=== PATIENT | male | born 1950 | race Two or more races ===

== ENCOUNTER 2018-08-07 21:06 | Inpatient (IN) | payer MEDICARE ==
[~2018-08-07] VITALS: Ht 172.7 cm; Wt 55.0 kg
--- NOTE | 2018-08-07 21:46 | Emergency Room Report ---
History of Present Illness General Chief Complaint: General Complaint Source: Family Member, EMS, PMD Present Illness HPI H presents after having multiple antibiotics for infection in the right hip. Apparently he has cancer in that area. He's had weakness and not been eating well. Has dementia and therefore it's difficult to get history from him. Family member states that his private doctor wanted him to be admitted for blood work and probable and IV antibiotics. Patient with lung cancer with brain metastases. Unable to answer questions. Allergies: Coded Allergies: No Known Allergies (Unverified , 08/07/18) Patient History Limited by: medical condition Past Medical History: see triage record Social History: Denies: smoking - former Social History Narrative daughter involved in care Reviewed Nursing Documentation: PMH: Agreed; PSxH: Agreed Nursing Documentation-PMH Hx Cancer: Yes - brain, lung, muscle Review of Systems All Other Systems: limited Physical Exam Vital Signs Date Time Temp Pulse Resp B/P (MAP) Pulse Ox O2 Delivery O2 Flow Rate FiO2 08/07/18 21:33 97.5 117 18 144/88 98 Room Air Sp02 EP Interpretation: reviewed, normal General Appearance: no apparent distress, Chronically Ill Head: normocephalic, atraumatic Eyes: bilateral eye PERRL, bilateral eye scleral icterus ENT: dry mucus membranes Neck: supple Respiratory: no rhonchi, decreased breath sounds Cardiovascular #1: tachycardia Cardiovascular #2: 2+ radial (L) Gastrointestinal: abnormal bowel sounds, scaphoid Genitourinary: no CVA tenderness Musculoskeletal: back normal, other - atrophy Neurologic: alert, other - disoriented, moving all 4 Psychiatric: anxious Skin: other - stage 4 R hip decubitus Medical Decision Making Diagnostic Impression: Primary Impression: Osteomyelitis of right hip Additional Impressions: Lung cancer metastatic to brain Malnutrition Qualified Codes: E43 - Unspecified severe protein-calorie malnutrition ER Course Patient presents with weakness and outpatient antibiotic treatment failure for an infected right hip. Differential includes osteomyelitis, electrolyte imbalance, acute myocardial infarction, sepsis amongst others. He be evaluated with EKG, chest x-ray, x-ray of the hips. Blood cultures will be obtained and lactic acid. Discussion with Dr. Parada led to antibiotic choice. EKG ST with PACs. CXR with effusion, mass left. Labs with leukocytosis. ESR elevated. C reactive protein elevated. Dr. Benyamini debrided the wound in the ED. Patient treated for pain. Improved with treatment but needing antibiotics for probable osteomyelitis. Admit telemetry. Dr. Parada discussed admission with Dr. Smyth. Laboratory Tests Test 08/07/18 21:40 08/07/18 22:30 White Blood Count 14.5 K/UL (4.8-10.8) H Red Blood Count 3.85 M/UL (4.70-6.10) L Hemoglobin 9.9 G/DL (14.2-18.0) L Hematocrit 31.5 % (42.0-52.0) L Mean Corpuscular Volume 82 FL (80-99) Mean Corpuscular Hemoglobin 25.8 PG (27.0-31.0) L Mean Corpuscular Hemoglobin Concent 31.6 G/DL (32.0-36.0) L Red Cell Distribution Width 15.8 % (11.6-14.8) H Platelet Count 808 K/UL (150-450) H Mean Platelet Volume 4.0 FL (6.5-10.1) L Neutrophils (%) (Auto) % (45.0-75.0) Lymphocytes (%) (Auto) % (20.0-45.0) Monocytes (%) (Auto) % (1.0-10.0) Eosinophils (%) (Auto) % (0.0-3.0) Basophils (%) (Auto) % (0.0-2.0) Differential Total Cells Counted 100 Neutrophils % (Manual) 77 % (45-75) H Lymphocytes % (Manual) 17 % (20-45) L Monocytes % (Manual) 3 % (1-10) Eosinophils % (Manual) 0 % (0-3) Basophils % (Manual) 0 % (0-2) Band Neutrophils 3 % (0-8) Platelet Estimate Increased H Platelet Morphology Normal Red Blood Cell Morphology Normal Erythrocyte Sedimentation Rate 109 MM/HR (0-20) H Prothrombin Time 12.9 SEC (9.30-11.50) H Prothrombin Time INR 1.2 (0.9-1.1) H PTT 34 SEC (23-33) H Sodium Level 133 MMOL/L (136-145) L Potassium Level 4.1 MMOL/L (3.5-5.1) Chloride Level 97 MMOL/L (98-107) L Carbon Dioxide Level 28 MMOL/L (21-32) Anion Gap 8 mmol/L (5-15) Blood Urea Nitrogen 16 mg/dL (7-18) Creatinine 0.5 MG/DL (0.55-1.30) L Estimate Glomerular Filtration Rate > 60 mL/min (>60) Glucose Level 114 MG/DL (74-106) H Lactic Acid Level 1.30 mmol/L (0.4-2.0) Calcium Level 9.6 MG/DL (8.5-10.1) Magnesium Level 1.6 MG/DL (1.8-2.4) L Total Bilirubin 0.2 MG/DL (0.2-1.0) Aspartate Amino Transferase (AST) 39 U/L (15-37) H Alanine Aminotransferase (ALT) 89 U/L (12-78) H Alkaline Phosphatase 92 U/L (46-116) Total Creatine Kinase 23 U/L (26-308) L Troponin I 0.000 ng/mL (0.000-0.056) C-Reactive Protein, Quantitative 18.4 mg/dL (0.00-0.90) H Pro-B-Type Natriuretic Peptide 346 pg/mL (0-125) H Total Protein 9.1 G/DL (6.4-8.2) H Albumin 2.4 G/DL (3.4-5.0) L Globulin 6.7 g/dL Albumin/Globulin Ratio 0.4 (1.0-2.7) L Ammonia 12 umol/L (11-32) EKG Diagnostic Results Rate: tachycardiac ST Segments: no acute changes Rhythm Strip Diag. Results EP Interpretation: yes Rhythm: no PVC's, other - ST with PACs Chest X-Ray Diagnostic Results Chest X-Ray Diagnostic Results : Chest X-Ray Ordered: Yes # of Views/Limited/Complete: 1 View Indication: Other Interpretation: no pneumothorax, other - effusion, mass L Impression: Other Electronically Signed by: Electronically signed by Theo Quick MD Last Vital Signs Date Time Temp Pulse Resp B/P (MAP) Pulse Ox O2 Delivery O2 Flow Rate FiO2 08/08/18 01:44 Room Air 08/07/18 23:36 97.5 08/07/18 22:15 98 16 131/62 98 Status: improved Disposition: ADMITTED INPATIENT Condition: Serious Theo Quick MD Aug 07, 2018 21:46
[2018-08-07] MEDS ORDERED: HYDROCODON-ACE1 EA13 ORAL (22:03)
[2018-08-07] MEDS ORDERED: MIRTAZAPINE30 MG ORAL (22:03)
[2018-08-07] MEDS ORDERED: BRAIN MIGHT-DH1 EACH PO (22:03)
[2018-08-07] MEDS ORDERED: FENTANYL1 EAC3 TDERMAL (22:03)
[2018-08-07] MEDS ORDERED: ASPIR 8181 MG ORAL (22:03)
[2018-08-07] MEDS ORDERED: CENTRUM SILVER1 EAC2 PO (22:03)
[2018-08-07] MEDS ORDERED: ZINC SULFATE220 M1 ORAL (22:03)
[2018-08-07] MEDS ORDERED: CALCIUM 250+D1 EACH PO (22:03)
[2018-08-07] MEDS ORDERED: MIRALAX17 G2 ORAL (22:03)
[2018-08-07] MEDS ORDERED: BACTRIM DS TAB1 EAC1 ORAL (22:03)
[2018-08-07] MEDS ORDERED: SENOKOT8.6 MG PO (22:03)
[2018-08-07] MEDS ORDERED: VITAMIN D250000 UNI1 ORAL (22:03)
--- NOTE | 2018-08-07 22:07 | Diagnostic Imaging Report ---
EXAM: XR Chest, 1 View CLINICAL HISTORY: ALOC TECHNIQUE: Frontal view of the chest. COMPARISON: No relevant prior studies available. FINDINGS: Lungs: Small amount of linear opacities over left middle and lower lung zone, likely represent scarring related to partial pneumonectomy. Left pneumothorax appears contracted. Partial left pneumonectomy sutures in the region of medial lung zone. Pleural space: Cannot rule out small left pleural effusion. Heart: Unremarkable. No cardiomegaly. Mediastinum: Suspect hiatal hernia. Bones/joints: Old right rib fractures. Osteopenia. Vasculature: Minimally calcified aorta. IMPRESSION: Right lung is clear. Difficult to rule out left middle and lower lung zone airspace disease versus post partial left pneumonectomy changes. Suspect small left pleural effusion/thickening. Questionable hiatal hernia.
[2018-08-07 22:15] VITALS: BP 131/62
[2018-08-07] MEDS ORDERED: Piperacillin/Tazobactam 3.375 GM in NS 110 ML IVPB ONE (22:15)
[2018-08-07] MEDS ORDERED: Vancomycin 1 GM in D5W 275 ML IVPB ONE (22:15)
[2018-08-07 22:19] LABS: HEMATOCRIT 31.5 % (42.0-52.0); HEMOGLOBIN 9.9 G/DL (14.2-18.0); MEAN CORPUSCULAR VOLUME 82 FL (80-99); PLATELET COUNT 808 K/UL (150-450); RED BLOOD COUNT 3.85 M/UL (4.70-6.10); RED CELL DISTRIBUTION WIDTH 15.8 % (11.6-14.8); WHITE BLOOD COUNT 14.5 K/UL (4.8-10.8)
[2018-08-07 22:28] LABS: INR 1.2 (0.9-1.1)
[2018-08-07 22:37] LABS: ANION GAP 8 mmol/L (5-15); BLOOD UREA NITROGEN 16 mg/dL (7-18); CALCIUM 9.6 MG/DL (8.5-10.1); CARBON DIOXIDE 28 MMOL/L (21-32); CHLORIDE 97 MMOL/L (98-107); CREATININE 0.5 MG/DL (0.55-1.30); POTASSIUM 4.1 MMOL/L (3.5-5.1); SODIUM 133 MMOL/L (136-145)
--- NOTE | 2018-08-07 22:44 | Consultation ---
History of Present Illness General Date patient seen: Aug 07, 2018 Chief Complaint: General Complaint Reason for Consultation: left hip wound Present Illness HPI 68 year old male with complex medical history presented with generalized malaise , fatigue, and worsening left hip wound with what was thought to be abscess. Patient with history of metastatic lung cancer s/p chemo and radiation. Last radiation was months ago and last chemotherapy was few weeks ago. Per the patients , first diagnosed with lung cancer after surgical biopsy performed for mass. Was then found to have mets to brain and potentially bone. Currently lives at home with and has home health care. Has multidisciplinary outpatient care team. Began to develop left hip wound 1 month ago and worsened last week. Was placed on oral Abx by PCP without improvement. Drainage worsening and condition poor therefore came to ED for evaluation. Was believed to have possible left hip abscess that failed outpatient medical therapy. Surgery called to evaluate. Patient seen, chart reviewed, patient examined. to help with history. States otherwise well without history of HTN, DM, renal or heart disease. Believes left hip wound to have began 1 month ago after pain medication injection to the same area while at [facility]. She was told at that time it is likely a decubitus ulcer. Hx of resolving sacral decubitus ulcer. States he now likes to lay on his left side in one specific position. no n/v/f/c. appetite poor. Allergies: Coded Allergies: No Known Allergies (Unverified , 08/07/18) Medication History Scheduled Aspirin* (Aspir 81*), 81 MG ORAL DAILY, (Reported) Ergocalciferol (Vitamin D2)* (Vitamin D*), 50,000 UNIT ORAL ONCE A WEEK, ( Reported) Fentanyl 100MCG Patch* (Fentanyl 100MCG Patch*), 1 PATCH TDERMAL EVERY 72 HOURS, (Reported) Hydrocodone Bit/Acetaminophen 10-325* (Hydrocodon-Acetaminophn 10-325*), 1 TAB ORAL Q4H, (Reported) Mirtazapine* (Remeron*), 30 MG ORAL BEDTIME, (Reported) Polyethylene Glycol 3350* (Miralax*), 17 GM ORAL DAILY, (Reported) Trimethoprim/Sulfamethoxazole 160/800* (Bactrim Ds Tablet*), 1 TAB ORAL TWICE A DAY, (Reported) Zinc Sulfate (Zinc Sulfate*), 220 MG ORAL DAILY, (Reported) Miscellaneous Medications Calcium Carbonate/Vitamin D3 (Calcium 250+D Tablet), 1 EACH PO, (Reported) Multivitamin W-Minerals/Lutein (Centrum Silver Ultra Men's Tab), 1 EACH PO, ( Reported) Sennosides (Senokot), 8.6 MG PO, (Reported) Vit B Cmplx & C#11/Ca/Dha/Q10 (Brain Xgvje-Vgx-Jh Q10 Tablet), 1 EACH PO, ( Reported) Patient History History Provided By: Patient, Family Member, Medical Record, Caregiver, PMD Healthcare decision maker Resuscitation status Advanced Directive on File Past Medical/Surgical History Past Medical/Surgical History: (1) Dehydration (2) Malnutrition (3) Stage 1 skin ulcer of sacral region (4) Decubitus ulcer of left hip, stage 4 (5) Lung cancer metastatic to brain (6) Sepsis Review of Systems All Other Systems: negative except mentioned in HPI Physical Exam General Appearance: no apparent distress, alert Lines, tubes and drains: peripheral HEENT: mucous membranes moist Neck: normal inspection Respiratory/Chest: normal breath sounds, no respiratory distress, no accessory muscle use Cardiovascular/Chest: tachycardia Abdomen: normal bowel sounds, non tender, soft, no organomegaly, no mass Extremities: no calf tenderness, normal capillary refill, no edema, no cyanosis , other Skin Exam: other - stage 4 left hip decubitus ulcer / stage 1 sacral decubitus Neurologic: alert, responsive Last 24 Hour Vital Signs Date Time Temp Pulse Resp B/P (MAP) Pulse Ox O2 Delivery O2 Flow Rate FiO2 08/07/18 21:33 97.5 117 18 144/88 98 Room Air Laboratory Tests Test 08/07/18 21:40 White Blood Count 14.5 K/UL (4.8-10.8) H Red Blood Count 3.85 M/UL (4.70-6.10) L Hemoglobin 9.9 G/DL (14.2-18.0) L Hematocrit 31.5 % (42.0-52.0) L Mean Corpuscular Volume 82 FL (80-99) Mean Corpuscular Hemoglobin 25.8 PG (27.0-31.0) L Mean Corpuscular Hemoglobin Concent 31.6 G/DL (32.0-36.0) L Red Cell Distribution Width 15.8 % (11.6-14.8) H Platelet Count 808 K/UL (150-450) H Mean Platelet Volume 4.0 FL (6.5-10.1) L Neutrophils (%) (Auto) % (45.0-75.0) Lymphocytes (%) (Auto) % (20.0-45.0) Monocytes (%) (Auto) % (1.0-10.0) Eosinophils (%) (Auto) % (0.0-3.0) Basophils (%) (Auto) % (0.0-2.0) Neutrophils % (Manual) Pending Lymphocytes % (Manual) Pending Platelet Estimate Pending Platelet Morphology Pending Prothrombin Time 12.9 SEC (9.30-11.50) H Prothromb Time International Ratio 1.2 (0.9-1.1) H Activated Partial Thromboplast Time 34 SEC (23-33) H Sodium Level Pending Potassium Level Pending Chloride Level Pending Carbon Dioxide Level Pending Blood Urea Nitrogen Pending Creatinine Pending Estimat Glomerular Filtration Rate Pending Glucose Level Pending Lactic Acid Level Pending Calcium Level Pending Magnesium Level Pending Total Bilirubin Pending Aspartate Amino Transf (AST/SGOT) Pending Alanine Aminotransferase (ALT/SGPT) Pending Alkaline Phosphatase Pending Total Creatine Kinase Pending Troponin I Pending Pro-B-Type Natriuretic Peptide Pending Total Protein Pending Albumin Pending Globulin Pending Height (Feet): 5 Height (Inches): 8.00 Weight (Pounds): 140 Medications Current Medications Medications (Trade) Dose Ordered Sig/Efraín Route PRN Reason Start Time Stop Time Status Last Admin Dose Admin Piperacillin Sod/ Tazobactam Sod 3.375 gm/Sodium Chloride 110 ml @ 220 mls/hr ONCE ONCE IVPB 08/07/18 22:15 08/07/18 22:44 Sodium Chloride 1,000 ml @ 300 mls/hr Q3H20M IV 08/07/18 21:45 09/06/18 21:44 Sodium Chloride 1,000 ml @ 999 mls/hr Q1H1M ONCE IV 08/07/18 21:45 08/07/18 22:45 Vancomycin HCl 1 gm/Dextrose 275 ml @ 183.708 mls/hr ONCE ONCE IVPB 08/07/18 22:15 08/07/18 23:44 Assessment/Plan Problem List: (1) Dehydration Assessment & Plan: poor intake recently fatigue -IV fluids -bolus IVF monitor urine output ICD Codes: E86.0 - Dehydration SNOMED: 43468501 (2) Malnutrition Assessment & Plan: Mets lung cancer s/p chemo / radiation overall poor prognosis poor appetite -diet as tolerated -IV F -nutrition consult -trend labs ICD Codes: E46 - Unspecified protein-calorie malnutrition SNOMED: 86774877 Qualifiers: (3) Decubitus ulcer of left hip, stage 4 Assessment & Plan: stage 4 left hp decubitus ulcer on presentation foul odor, purulent drainage around unstable eschar cap. can be noted to be stage from around eschar cap 5cm x 5cm x 1cm deep with 3mm tunneling anterior superior aspect debridement performed at bedside and wound cleaned see note -diet as tolerated -dressing change to wound BID -turn q2h -air mattress -heel protectors thank you ICD Codes: L89.224 - Pressure ulcer of left hip, stage 4 SNOMED: 726370491, 685066765 (4) Sepsis Assessment & Plan: leukocytosis tachycardic low urine output -see above plans -ivABX ICD Codes: A41.9 - Sepsis, unspecified organism SNOMED: 81753397 Alli Parada Aug 07, 2018 22:44
[2018-08-07] MEDS ORDERED: LORazepam Inj 2mg/ml 1ml IV PRN (22:45)
[2018-08-07] MEDS ORDERED: Morphine Sulfate 4mg/ml Inj (IV/IM USE ONLY) IVP PRN (22:45)
[2018-08-07] MEDS ORDERED: Nitroglycerin Subl 0.4mg tab SL PRN (22:45)
[2018-08-07] MEDS ORDERED: Morphine Sulfate 2mg/ml Inj IVP PRN ×2 (22:45)
[2018-08-07] MEDS ORDERED: Mylanta II UD 30ml ORAL PRN (22:45)
[2018-08-07] MEDS ORDERED: Milk of Magnesia 30ml Ud ORAL PRN (22:45)
[2018-08-07 22:48] LABS: ALANINE AMINOTRANSFERASE 89 U/L (12-78); ALBUMIN 2.4 G/DL (3.4-5.0); ALBUMIN/GLOBULIN RATIO 0.4 (1.0-2.7); ALKALINE PHOSPHATASE 92 U/L (46-116); ASPARTATE AMINO TRANSFERASE 39 U/L (15-37); BILIRUBIN,TOTAL 0.2 MG/DL (0.2-1.0); CREATINE KINASE 23 U/L (26-308)
[2018-08-07] MEDS ORDERED: Morphine Sulfate 4mg/ml Inj (IV/IM USE ONLY) IVP ONE (23:00)
[2018-08-08 00:20] VITALS: BP 127/90
[2018-08-08] MEDS ORDERED: SENOKOT8.6 MG PO (01:38)
[2018-08-08] MEDS ORDERED: CALCIUM 500 +1 EAC3 PO (01:38)
[2018-08-08] MEDS: D5 1/2NS w/KCl 20mEq 1,000 ML IV SCH ×2 (02:07→08:43)
[2018-08-08] MEDS: Docusate 100mg cap ORAL SCH ×3 (02:07→18:24)
[2018-08-08] MEDS: Heparin 5000 units/ml inj SUBQ SCH ×3 (02:08→20:58)
[2018-08-08 04:00] VITALS: BP 144/82
[2018-08-08] MEDS: Piperacillin/Tazobactam 3.375 GM in NS 110 ML IVPB SCH ×3 (05:53→21:24)
[2018-08-08 07:15] LABS: INR 1.3 (0.9-1.1)
[2018-08-08 07:17] LABS: BASOPHILS % (AUTO) 0.8 % (0.0-2.0); EOSINOPHILS % (AUTO) 1.3 % (0.0-3.0); HEMATOCRIT 29.9 % (42.0-52.0); HEMOGLOBIN 9.3 G/DL (14.2-18.0); LYMPHOCYTES % (AUTO) 10.6 % (20.0-45.0); MEAN CORPUSCULAR VOLUME 80 FL (80-99); MONOCYTES % (AUTO) 5.9 % (1.0-10.0); NEUTROPHILS % (AUTO) 81.4 % (45.0-75.0); PLATELET COUNT 784 K/UL (150-450); RED BLOOD COUNT 3.72 M/UL (4.70-6.10); RED CELL DISTRIBUTION WIDTH 16.1 % (11.6-14.8); WHITE BLOOD COUNT 13.1 K/UL (4.8-10.8)
[2018-08-08 07:36] LABS: ALANINE AMINOTRANSFERASE 78 U/L (12-78); ALBUMIN 2.3 G/DL (3.4-5.0); ALBUMIN/GLOBULIN RATIO 0.4 (1.0-2.7); ALKALINE PHOSPHATASE 83 U/L (46-116); ANION GAP 9 mmol/L (5-15); ASPARTATE AMINO TRANSFERASE 30 U/L (15-37); BILIRUBIN,TOTAL 0.3 MG/DL (0.2-1.0); BLOOD UREA NITROGEN 10 mg/dL (7-18); CARBON DIOXIDE 25 MMOL/L (21-32); CHLORIDE 99 MMOL/L (98-107); CHOLESTEROL 178 MG/DL (< 200); CREATININE 0.4 MG/DL (0.55-1.30); HDL CHOLESTEROL 41 MG/DL (40-60); POTASSIUM 3.8 MMOL/L (3.5-5.1); SODIUM 132 MMOL/L (136-145); TRIGLYCERIDES 96 MG/DL (30-150)
[2018-08-08 08:00] VITALS: BP 140/78
[2018-08-08] MEDS ORDERED: NS 275ml ONE (10:22)
[2018-08-08] MEDS ORDERED: Tubing IV Secondary IV ONE (10:22)
[2018-08-08] MEDS ORDERED: Magnesium Chloride w/Calcium Tab ORAL SCH (11:00)
[2018-08-08 12:00] VITALS: BP 140/79
--- NOTE | 2018-08-08 13:09 | History & Physical ---
History and Physical History & Physicial H presents after having multiple antibiotics for infection in the right hip. Apparently he has cancer in that area. He's had weakness and not been eating well. Has dementia and therefore it's difficult to get history from him. Family member states that his private doctor wanted him to be admitted for blood work and probable and IV antibiotics. Patient with lung cancer with brain metastases. Unable to answer questions. Allergies: Coded Allergies: No Known Allergies (Unverified , 08/07/18) Hx Cancer: Yes - brain, lung, muscle (1) Dehydration (2) Malnutrition (3) Stage 1 skin ulcer of sacral region (4) Decubitus ulcer of left hip, stage 4 (5) Lung cancer metastatic to brain (6) Sepsis Hydrate antibiotics surgical eval # [id number] Hema Smyth MD Aug 08, 2018 13:09
[2018-08-08] MEDS: D5NS 1,000 ML IV SCH (14:30)
[2018-08-08 16:00] VITALS: BP 118/79
--- NOTE | 2018-08-08 16:00 | History and Physical Report ---
DATE OF ADMISSION: 08/07/2018 HISTORY OF PRESENT ILLNESS: The patient is a 68-year-old, unfortunate male, who presents with generalized malaise, fatigue, and worsening of the left hip wound, which was thought to be an abscess. The patient has history of metastatic lung cancer with previous chemotherapy and radiation. Last radiation was month ago and last chemotherapy few weeks ago. According to the patient's , the patient first diagnosed with lung cancer after surgical biopsy was performed and then found to have metastasis to the brain and bone. Currently, the patient is living at home with the . The patient began to develop left hip wound a month ago, which worsened for the last week and oral antibiotic was of no improvement and drainage worsened. Past history of the patient is otherwise insignificant for any diabetes, hypertension, or heart disease. The main problem at this point is weakness, fatigue, poor p.o. intake, and worsening of the left hip wound. MEDICATIONS: The patient takes includes aspirin, fentanyl, [place], Bactrim, and zinc. PHYSICAL EXAMINATION: GENERAL: On examination today, the patient is weak. VITAL SIGNS: Tachycardic with a rate of 112, afebrile, respiratory rate 20, and blood pressure 140/79. Face is pale. Not in any distress. Emaciated. HEENT: Head is normocephalic. NECK: Not rigid. HEART: Tachycardic. LUNGS: Decreased breath sounds over the bases. ABDOMEN: Slightly distended, soft. EXTREMITIES: Lower extremities, no edema. SKIN: Stage IV left hip decubitus and stage I sacral decubitus. LABORATORY RESULTS: White blood cell count 14.5 and hemoglobin 9.9. Chemistries show sodium low 133, glucose 114, medium low, albumin 2.4. No urine is available. IMPRESSION: 1. Decubitus of the ulcer of the left hip stage IV. The hip one appears to be infected. 2. Stage I sacral region decubitus. 3. Dehydration. 4. Malnutrition. 5. Lung cancer metastatic with brain and bone and sepsis. PLAN: IV hydration. Correct electrolytes. Antibiotics and wound care. According to how the patient's condition evolves, we will make the proper changes in our future management. Hema Smyth M.D. DR: [place] JOB#: [id number] CC:
--- NOTE | 2018-08-08 17:37 | General Surgery Progress Note ---
General Surgery-Progress Note Subjective Additional Comments resting comfortable. states he is a bit better today. no n/v/f/c. tolerating diet. +bm Objective Last 24 Hour Vital Signs Date Time Temp Pulse Resp B/P (MAP) Pulse Ox O2 Delivery O2 Flow Rate FiO2 08/08/18 16:00 97.9 108 20 118/79 (92) 97 08/08/18 16:00 101 08/08/18 12:00 97.8 112 20 140/79 (99) 97 08/08/18 12:00 91 08/08/18 09:00 Room Air 08/08/18 08:00 116 08/08/18 08:00 98.1 108 20 140/78 (98) 98 08/08/18 04:00 111 08/08/18 04:00 97.5 109 19 144/82 (102) 96 08/08/18 01:44 Room Air 08/08/18 00:54 100 08/08/18 00:20 98.2 98 18 127/90 (102) 94 08/07/18 23:36 97.5 08/07/18 22:15 98.6 98 16 131/62 98 Room Air 08/07/18 21:45 104 18 Room Air 08/07/18 21:33 97.5 117 18 144/88 98 Room Air I&O Intake and Output 08/07/18 08/08/18 19:00 07:00 Intake Total 460 ml Balance 460 ml IV Total 460 ml # Voids 1 Dressing: saturated Wound: other Drains: other Cardiovascular: RSR Respiratory: clear Abdomen: soft, non-tender, present bowel sounds Extremities: other Laboratory Tests Test 08/07/18 21:40 08/07/18 22:30 08/08/18 05:50 08/08/18 06:00 White Blood Count 14.5 K/UL (4.8-10.8) H 13.1 K/UL (4.8-10.8) H Red Blood Count 3.85 M/UL (4.70-6.10) L 3.72 M/UL (4.70-6.10) L Hemoglobin 9.9 G/DL (14.2-18.0) L 9.3 G/DL (14.2-18.0) L Hematocrit 31.5 % (42.0-52.0) L 29.9 % (42.0-52.0) L Mean Corpuscular Volume 82 FL (80-99) 80 FL (80-99) Mean Corpuscular Hemoglobin 25.8 PG (27.0-31.0) L 25.0 PG (27.0-31.0) L Mean Corpuscular Hemoglobin Concent 31.6 G/DL (32.0-36.0) L 31.2 G/DL (32.0-36.0) L Red Cell Distribution Width 15.8 % (11.6-14.8) H 16.1 % (11.6-14.8) H Platelet Count 808 K/UL (150-450) H 784 K/UL (150-450) H Mean Platelet Volume 4.0 FL (6.5-10.1) L 4.2 FL (6.5-10.1) L Neutrophils (%) (Auto) % (45.0-75.0) 81.4 % (45.0-75.0) H Lymphocytes (%) (Auto) % (20.0-45.0) 10.6 % (20.0-45.0) L Monocytes (%) (Auto) % (1.0-10.0) 5.9 % (1.0-10.0) Eosinophils (%) (Auto) % (0.0-3.0) 1.3 % (0.0-3.0) Basophils (%) (Auto) % (0.0-2.0) 0.8 % (0.0-2.0) Differential Total Cells Counted 100 Neutrophils % (Manual) 77 % (45-75) H Lymphocytes % (Manual) 17 % (20-45) L Monocytes % (Manual) 3 % (1-10) Eosinophils % (Manual) 0 % (0-3) Basophils % (Manual) 0 % (0-2) Band Neutrophils 3 % (0-8) Platelet Estimate Increased H Platelet Morphology Normal Red Blood Cell Morphology Normal Erythrocyte Sedimentation Rate 109 MM/HR (0-20) H Prothrombin Time 12.9 SEC (9.30-11.50) H 13.1 SEC (9.30-11.50) H Prothromb Time International Ratio 1.2 (0.9-1.1) H 1.3 (0.9-1.1) H Activated Partial Thromboplast Time 34 SEC (23-33) H 34 SEC (23-33) H Sodium Level 133 MMOL/L (136-145) L 132 MMOL/L (136-145) L Potassium Level 4.1 MMOL/L (3.5-5.1) 3.8 MMOL/L (3.5-5.1) Chloride Level 97 MMOL/L (98-107) L 99 MMOL/L (98-107) Carbon Dioxide Level 28 MMOL/L (21-32) 25 MMOL/L (21-32) Anion Gap 8 mmol/L (5-15) 9 mmol/L (5-15) Blood Urea Nitrogen 16 mg/dL (7-18) 10 mg/dL (7-18) Creatinine 0.5 MG/DL (0.55-1.30) L 0.4 MG/DL (0.55-1.30) L Estimat Glomerular Filtration Rate > 60 mL/min (>60) > 60 mL/min (>60) Glucose Level 114 MG/DL (74-106) H 133 MG/DL (74-106) H Lactic Acid Level 1.30 mmol/L (0.4-2.0) Calcium Level 9.6 MG/DL (8.5-10.1) 9.0 MG/DL (8.5-10.1) Magnesium Level 1.6 MG/DL (1.8-2.4) L Total Bilirubin 0.2 MG/DL (0.2-1.0) 0.3 MG/DL (0.2-1.0) Aspartate Amino Transf (AST/SGOT) 39 U/L (15-37) H 30 U/L (15-37) Alanine Aminotransferase (ALT/SGPT) 89 U/L (12-78) H 78 U/L (12-78) Alkaline Phosphatase 92 U/L (46-116) 83 U/L (46-116) Total Creatine Kinase 23 U/L (26-308) L Troponin I 0.000 ng/mL (0.000-0.056) C-Reactive Protein, Quantitative 18.4 mg/dL (0.00-0.90) H 18.8 mg/dL (0.00-0.90) H Pro-B-Type Natriuretic Peptide 346 pg/mL (0-125) H 414 pg/mL (0-125) H Total Protein 9.1 G/DL (6.4-8.2) H 8.5 G/DL (6.4-8.2) H Albumin 2.4 G/DL (3.4-5.0) L 2.3 G/DL (3.4-5.0) L Globulin 6.7 g/dL 6.2 g/dL Albumin/Globulin Ratio 0.4 (1.0-2.7) L 0.4 (1.0-2.7) L Ammonia 12 umol/L (11-32) Hemoglobin A1c 5.0 % (4.3-6.0) Triglycerides Level 96 MG/DL (30-150) Cholesterol Level 178 MG/DL (< 200) LDL Cholesterol 118 mg/dL (<100) H HDL Cholesterol 41 MG/DL (40-60) Cholesterol/HDL Ratio 4.3 (3.3-4.4) Thyroid Stimulating Hormone (TSH) 2.666 uiU/mL (0.358-3.740) Plan Problems: (1) Dehydration Assessment & Plan: poor intake recently fatigue -IV fluids -diet as tolerated monitor urine output trend labs (2) Malnutrition Assessment & Plan: Mets lung cancer s/p chemo / radiation overall poor prognosis poor appetite -diet as tolerated -IV F -nutrition consult -trend labs (3) Decubitus ulcer of left hip, stage 4 Assessment & Plan: stage 4 left hp decubitus ulcer on presentation foul odor, purulent drainage around unstable eschar cap. can be noted to be stage from around eschar cap 5cm x 5cm x 1cm deep with 3mm tunneling anterior superior aspect debridement performed at bedside and wound cleaned see note -diet as tolerated -dressing change to wound BID -turn q2h -air mattress -heel protectors thank you (4) Sepsis Assessment & Plan: leukocytosis improving tachycardic improving low urine output improving -see above plans -Alli Rubio Aug 08, 2018 17:37
[2018-08-08 17:42] LABS: APPEARANCE,URINE CLEAR; BILIRUBIN, URINE NEGATIVE (NEGATIVE); COLOR,URINE PALE YELLOW; GLUCOSE, URINE (UA) NEGATIVE (NEGATIVE); KETONES,URINE NEGATIVE (NEGATIVE); LEUKOCYTE ESTERASE ,URINE NEGATIVE (NEGATIVE); NITRITE,URINE NEGATIVE (NEGATIVE); PH,URINE 7 (4.5-8.0); PROTEIN,URINE NEGATIVE (NEGATIVE); UROBILINOGEN,URINE NORMAL MG/DL (0.0-1.0)
[2018-08-08 20:00] VITALS: BP 121/62
[2018-08-09 04:00] VITALS: BP 154/76
[2018-08-09] MEDS: Piperacillin/Tazobactam 3.375 GM in NS 110 ML IVPB SCH ×3 (05:08→22:46)
[2018-08-09 05:54] LABS: BASOPHILS % (AUTO) 0.6 % (0.0-2.0); EOSINOPHILS % (AUTO) 1.3 % (0.0-3.0); HEMATOCRIT 27.5 % (42.0-52.0); HEMOGLOBIN 8.7 G/DL (14.2-18.0); LYMPHOCYTES % (AUTO) 11.3 % (20.0-45.0); MEAN CORPUSCULAR VOLUME 80 FL (80-99); MONOCYTES % (AUTO) 7.1 % (1.0-10.0); NEUTROPHILS % (AUTO) 79.8 % (45.0-75.0); PLATELET COUNT 692 K/UL (150-450); RED BLOOD COUNT 3.45 M/UL (4.70-6.10); WHITE BLOOD COUNT 10.5 K/UL (4.8-10.8)
[2018-08-09 06:16] LABS: ALANINE AMINOTRANSFERASE 76 U/L (12-78); ALBUMIN/GLOBULIN RATIO 0.3 (1.0-2.7); ALKALINE PHOSPHATASE 80 U/L (46-116); ANION GAP 11 mmol/L (5-15); ASPARTATE AMINO TRANSFERASE 37 U/L (15-37); BILIRUBIN,TOTAL 0.2 MG/DL (0.2-1.0); BLOOD UREA NITROGEN 7 mg/dL (7-18); CALCIUM 8.7 MG/DL (8.5-10.1); CARBON DIOXIDE 25 MMOL/L (21-32); CHLORIDE 100 MMOL/L (98-107); CREATININE 0.4 MG/DL (0.55-1.30); FERRITIN 784 NG/ML (8-388); GAMMA GLUTAMYL TRANSPEPTIDASE 51 U/L (5-85); PHOSPHORUS 3.4 MG/DL (2.5-4.9); POTASSIUM 3.2 MMOL/L (3.5-5.1); SODIUM 136 MMOL/L (136-145)
[2018-08-09 06:31] LABS: % IRON SATURATION 8 % (15-50); IRON 14 ug/dL (50-175); TOTAL IRON BINDING CAPACITY 181 ug/dL (250-450)
[2018-08-09 08:00] VITALS: BP 122/78
[2018-08-09] MEDS: Docusate 100mg cap ORAL SCH ×3 (09:24→17:34)
[2018-08-09] MEDS: Heparin 5000 units/ml inj SUBQ SCH ×2 (09:31→21:00)
[2018-08-09] MEDS: D5NS 1,000 ML IV SCH (09:37)
[2018-08-09 12:00] VITALS: BP 137/74
--- NOTE | 2018-08-09 12:01 | General Surgery Progress Note ---
General Surgery-Progress Note Subjective Symptoms: improved, tolerating diet, passing flatus Additional Comments no acute events. comfortable today. resting. no n/v/f/c. labs improved. Objective Last 24 Hour Vital Signs Date Time Temp Pulse Resp B/P (MAP) Pulse Ox O2 Delivery O2 Flow Rate FiO2 08/09/18 09:00 Room Air 08/09/18 08:00 98.3 99 16 122/78 (93) 99 08/09/18 08:00 100 08/09/18 04:00 93 08/09/18 04:00 97.0 97 20 154/76 (102) 100 08/09/18 00:00 100 08/08/18 21:00 Room Air 08/08/18 20:00 97.0 92 20 121/62 (81) 95 08/08/18 20:00 94 08/08/18 16:00 97.9 108 20 118/79 (92) 97 08/08/18 16:00 101 I&O Intake and Output 08/08/18 08/09/18 19:00 07:00 Intake Total 770 ml 745 ml Output Total 300 ml 500 ml Balance 470 ml 245 ml Intake Oral 720 ml IV Total 50 ml 745 ml Output Urine Total 300 ml 500 ml # Voids 3 # Bowel Movements 1 Dressing: saturated Wound: other - improved. some areas noted to be non viable Drains: none Cardiovascular: RSR Respiratory: clear Abdomen: soft, flat, non-tender, present bowel sounds Extremities: other Laboratory Tests Test 08/08/18 17:32 08/09/18 05:10 Urine Color Pale yellow Urine Appearance Clear Urine pH 7 (4.5-8.0) Urine Specific [place] 1.005 (1.005-1.035) Urine Protein Negative (NEGATIVE) Urine Glucose (UA) Negative (NEGATIVE) Urine Ketones Negative (NEGATIVE) Urine Blood 1+ (NEGATIVE) H Urine Nitrite Negative (NEGATIVE) Urine Bilirubin Negative (NEGATIVE) Urine Urobilinogen Normal MG/DL (0.0-1.0) Urine Leukocyte Esterase Negative (NEGATIVE) Urine RBC 5-10 /HPF (0 - 0) H Urine WBC 0 /HPF (0 - 0) Urine Squamous Epithelial Cells Occasional /LPF Urine Bacteria Occasional /HPF (NONE) White Blood Count 10.5 K/UL (4.8-10.8) Red Blood Count 3.45 M/UL (4.70-6.10) L Hemoglobin 8.7 G/DL (14.2-18.0) L Hematocrit 27.5 % (42.0-52.0) L Mean Corpuscular Volume 80 FL (80-99) Mean Corpuscular Hemoglobin 25.2 PG (27.0-31.0) L Mean Corpuscular Hemoglobin Concent 31.7 G/DL (32.0-36.0) L Red Cell Distribution Width 16.0 % (11.6-14.8) H Platelet Count 692 K/UL (150-450) H Mean Platelet Volume 4.4 FL (6.5-10.1) L Neutrophils (%) (Auto) 79.8 % (45.0-75.0) H Lymphocytes (%) (Auto) 11.3 % (20.0-45.0) L Monocytes (%) (Auto) 7.1 % (1.0-10.0) Eosinophils (%) (Auto) 1.3 % (0.0-3.0) Basophils (%) (Auto) 0.6 % (0.0-2.0) Sodium Level 136 MMOL/L (136-145) Potassium Level 3.2 MMOL/L (3.5-5.1) L Chloride Level 100 MMOL/L (98-107) Carbon Dioxide Level 25 MMOL/L (21-32) Anion Gap 11 mmol/L (5-15) Blood Urea Nitrogen 7 mg/dL (7-18) Creatinine 0.4 MG/DL (0.55-1.30) L Estimat Glomerular Filtration Rate > 60 mL/min (>60) Glucose Level 116 MG/DL (74-106) H Hemoglobin A1c 5.1 % (4.3-6.0) Lactic Acid Level 1.20 mmol/L (0.4-2.0) Uric Acid 1.2 MG/DL (2.6-7.2) L Calcium Level 8.7 MG/DL (8.5-10.1) Phosphorus Level 3.4 MG/DL (2.5-4.9) Magnesium Level 1.5 MG/DL (1.8-2.4) L Iron Level 14 ug/dL (50-175) L Total Iron Binding Capacity 181 ug/dL (250-450) L Percent Iron Saturation 8 % (15-50) L Unsaturated Iron Binding 167 ug/dL (112-346) Ferritin 784 NG/ML (8-388) H Total Bilirubin 0.2 MG/DL (0.2-1.0) Gamma Glutamyl Transpeptidase 51 U/L (5-85) Aspartate Amino Transf (AST/SGOT) 37 U/L (15-37) Alanine Aminotransferase (ALT/SGPT) 76 U/L (12-78) Alkaline Phosphatase 80 U/L (46-116) Troponin I 0.000 ng/mL (0.000-0.056) Pro-B-Type Natriuretic Peptide 458 pg/mL (0-125) H Total Protein 8.0 G/DL (6.4-8.2) Albumin 2.0 G/DL (3.4-5.0) L Globulin 6.0 g/dL Albumin/Globulin Ratio 0.3 (1.0-2.7) L Vitamin B12 Level 1367 PG/ML (193-986) H Folate 11.7 NG/ML (8.6-58.9) Plan Problems: (1) Dehydration Assessment & Plan: poor intake recently fatigue -IV fluids -diet as tolerated monitor urine output trend labs (2) Malnutrition Assessment & Plan: Mets lung cancer s/p chemo / radiation overall poor prognosis poor appetite -diet as tolerated -IV F -nutrition consult -trend labs (3) Decubitus ulcer of left hip, stage 4 Assessment & Plan: stage 4 left hp decubitus ulcer on presentation foul odor, purulent drainage around unstable eschar cap. can be noted to be stage from around eschar cap 5cm x 5cm x 1cm deep with 3mm tunneling anterior superior aspect debridement performed at bedside and wound cleaned see note will likely need further debridement later as I can note some areas declining -diet as tolerated -dressing change to wound BID -turn q2h -air mattress -heel protectors thank you (4) Sepsis Assessment & Plan: leukocytosis improving tachycardic improving low urine output improving -see above plans -Alli Rubio Aug 09, 2018 12:01
--- NOTE | 2018-08-09 12:08 | Brief Operative Note ---
Immediate Post Operative Note Operative Note Chief Complaint: see dicatation. procedure 08/07. Specimen: yes Complications: none Fluids: n/a Implant(s) used?: No Alli Parada Aug 09, 2018 12:08
--- NOTE | 2018-08-09 12:28 | Consultation ---
History of Present Illness General Date patient seen: Aug 09, 2018 Chief Complaint: General Complaint Reason for Consultation: left hip wound Present Illness HPI 68 year old male with hx of metastatic lung cancer, with mets to bone and brain , s/p chemo and RT to brain, bed bound for the last two years. brought in by family to ER b/o worsening left hip wound with possible abscess formation. Pt is looks chronically ill and emaciated. His pain is controlled with Fentanyl patch. Pt has care givers at home Allergies: Coded Allergies: No Known Allergies (Unverified , 08/07/18) Medication History Scheduled Aspirin* (Aspir 81*), 81 MG ORAL DAILY, (Reported) Calcium Carbonate/Vitamin D3 (Calcium 500 + D Tablet), 1 EACH PO DAILY, ( Reported) Ergocalciferol (Vitamin D2)* (Vitamin D*), 50,000 UNIT ORAL ONCE A WEEK, ( Reported) Fentanyl 100MCG Patch* (Fentanyl 100MCG Patch*), 1 PATCH TDERMAL EVERY 72 HOURS, (Reported) Mirtazapine* (Remeron*), 30 MG ORAL BEDTIME, (Reported) Polyethylene Glycol 3350* (Miralax*), 17 GM ORAL DAILY, (Reported) Sennosides (Senokot), 8.6 MG PO BID, (Reported) Trimethoprim/Sulfamethoxazole 160/800* (Bactrim Ds Tablet*), 1 TAB ORAL TWICE A DAY, (Reported) Zinc Sulfate (Zinc Sulfate*), 220 MG ORAL DAILY, (Reported) Scheduled PRN Hydrocodone Bit/Acetaminophen 10-325* (Hydrocodon-Acetaminophn 10-325*), 1 TAB ORAL Q4H PRN for Pain Scale (6-10), (Reported) Miscellaneous Medications Multivitamin W-Minerals/Lutein (Centrum Silver Ultra Men's Tab), 1 EACH PO, ( Reported) Vit B Cmplx & C#11/Ca/Dha/Q10 (Brain Anbwx-Cjr-Oh Q10 Tablet), 1 EACH PO, ( Reported) Patient History Healthcare decision maker Resuscitation status Full Code Advanced Directive on File Past Medical/Surgical History Past Medical/Surgical History: (1) Lung cancer metastatic to brain Review of Systems All Other Systems: negative except mentioned in HPI Physical Exam General Appearance: cachetic Lines, tubes and drains: peripheral HEENT: normocephalic Neck: non-tender, normal alignment Respiratory/Chest: chest wall non-tender, lungs clear Cardiovascular/Chest: normal peripheral pulses, normal rate, regular rhythm Abdomen: normal bowel sounds Genitourinary/Rectal: normal genital exam Extremities: normal range of motion Skin Exam: normal pigmentation Last 24 Hour Vital Signs Date Time Temp Pulse Resp B/P (MAP) Pulse Ox O2 Delivery O2 Flow Rate FiO2 08/09/18 09:00 Room Air 08/09/18 08:00 98.3 99 16 122/78 (93) 99 08/09/18 08:00 100 08/09/18 04:00 93 08/09/18 04:00 97.0 97 20 154/76 (102) 100 08/09/18 00:00 100 08/08/18 21:00 Room Air 08/08/18 20:00 97.0 92 20 121/62 (81) 95 08/08/18 20:00 94 08/08/18 16:00 97.9 108 20 118/79 (92) 97 08/08/18 16:00 101 Intake and Output 08/08/18 08/09/18 19:00 07:00 Intake Total 770 ml 745 ml Output Total 300 ml 500 ml Balance 470 ml 245 ml Intake Oral 720 ml IV Total 50 ml 745 ml Output Urine Total 300 ml 500 ml # Voids 3 # Bowel Movements 1 Laboratory Tests Test 08/08/18 17:32 08/09/18 05:10 Urine Color Pale yellow Urine Appearance Clear Urine pH 7 (4.5-8.0) Urine Specific [place] 1.005 (1.005-1.035) Urine Protein Negative (NEGATIVE) Urine Glucose (UA) Negative (NEGATIVE) Urine Ketones Negative (NEGATIVE) Urine Blood 1+ (NEGATIVE) H Urine Nitrite Negative (NEGATIVE) Urine Bilirubin Negative (NEGATIVE) Urine Urobilinogen Normal MG/DL (0.0-1.0) Urine Leukocyte Esterase Negative (NEGATIVE) Urine RBC 5-10 /HPF (0 - 0) H Urine WBC 0 /HPF (0 - 0) Urine Squamous Epithelial Cells Occasional /LPF Urine Bacteria Occasional /HPF (NONE) White Blood Count 10.5 K/UL (4.8-10.8) Red Blood Count 3.45 M/UL (4.70-6.10) L Hemoglobin 8.7 G/DL (14.2-18.0) L Hematocrit 27.5 % (42.0-52.0) L Mean Corpuscular Volume 80 FL (80-99) Mean Corpuscular Hemoglobin 25.2 PG (27.0-31.0) L Mean Corpuscular Hemoglobin Concent 31.7 G/DL (32.0-36.0) L Red Cell Distribution Width 16.0 % (11.6-14.8) H Platelet Count 692 K/UL (150-450) H Mean Platelet Volume 4.4 FL (6.5-10.1) L Neutrophils (%) (Auto) 79.8 % (45.0-75.0) H Lymphocytes (%) (Auto) 11.3 % (20.0-45.0) L Monocytes (%) (Auto) 7.1 % (1.0-10.0) Eosinophils (%) (Auto) 1.3 % (0.0-3.0) Basophils (%) (Auto) 0.6 % (0.0-2.0) Sodium Level 136 MMOL/L (136-145) Potassium Level 3.2 MMOL/L (3.5-5.1) L Chloride Level 100 MMOL/L (98-107) Carbon Dioxide Level 25 MMOL/L (21-32) Anion Gap 11 mmol/L (5-15) Blood Urea Nitrogen 7 mg/dL (7-18) Creatinine 0.4 MG/DL (0.55-1.30) L Estimat Glomerular Filtration Rate > 60 mL/min (>60) Glucose Level 116 MG/DL (74-106) H Hemoglobin A1c 5.1 % (4.3-6.0) Lactic Acid Level 1.20 mmol/L (0.4-2.0) Uric Acid 1.2 MG/DL (2.6-7.2) L Calcium Level 8.7 MG/DL (8.5-10.1) Phosphorus Level 3.4 MG/DL (2.5-4.9) Magnesium Level 1.5 MG/DL (1.8-2.4) L Iron Level 14 ug/dL (50-175) L Total Iron Binding Capacity 181 ug/dL (250-450) L Percent Iron Saturation 8 % (15-50) L Unsaturated Iron Binding 167 ug/dL (112-346) Ferritin 784 NG/ML (8-388) H Total Bilirubin 0.2 MG/DL (0.2-1.0) Gamma Glutamyl Transpeptidase 51 U/L (5-85) Aspartate Amino Transf (AST/SGOT) 37 U/L (15-37) Alanine Aminotransferase (ALT/SGPT) 76 U/L (12-78) Alkaline Phosphatase 80 U/L (46-116) Troponin I 0.000 ng/mL (0.000-0.056) Pro-B-Type Natriuretic Peptide 458 pg/mL (0-125) H Total Protein 8.0 G/DL (6.4-8.2) Albumin 2.0 G/DL (3.4-5.0) L Globulin 6.0 g/dL Albumin/Globulin Ratio 0.3 (1.0-2.7) L Vitamin B12 Level 1367 PG/ML (193-986) H Folate 11.7 NG/ML (8.6-58.9) Height (Feet): 5 Height (Inches): 8.00 Weight (Pounds): 122 Medications Current Medications Medications (Trade) Dose Ordered Sig/Efraín Route PRN Reason Start Time Stop Time Status Last Admin Dose Admin Acetaminophen (Tylenol) 650 mg Q4H PRN ORAL fever 08/07/18 22:45 09/06/18 22:44 Acetaminophen/ Hydrocodone Bitart ([place] 5/325) 1 tab Q4H PRN ORAL Moderate Pain (Pain Scale 4-6) 08/08/18 10:30 08/15/18 10:29 Dextrose (Dextrose 50%) 25 ml Q30M PRN IV Hypoglycemia 08/07/18 22:45 09/06/18 22:44 Dextrose (Dextrose 50%) 50 ml Q30M PRN IV Hypoglycemia 08/07/18 22:45 09/06/18 22:44 Dextrose/Sodium Chloride 1,000 ml @ 50 mls/hr Q20H IV 08/08/18 13:15 09/07/18 13:14 08/09/18 09:37 Diphenhydramine HCl (Benadryl) 25 mg Q6H PRN ORAL Itching/Pruritis 08/07/18 22:45 09/06/18 22:44 Docusate Sodium (Colace) 100 mg TID ORAL 08/08/18 18:00 09/06/18 23:14 08/09/18 09:24 Heparin Sodium (Porcine) (Heparin 5000 units/ml) 5,000 units EVERY 12 HOURS SUBQ 08/07/18 23:00 09/06/18 22:59 08/09/18 09:31 Iron Sucrose 200 mg/Sodium Chloride 120 ml @ 240 mls/hr ONCE IV 08/09/18 21:00 08/09/18 22:30 Lorazepam (Ativan 2mg/ml 1ml) 0.5 mg Q4H PRN IV For Anxiety 08/07/18 22:45 08/14/18 22:44 Magnesium Hydroxide (Mom) 30 ml HSPRN PRN ORAL Constipation 08/07/18 22:45 09/06/18 22:44 Magnesium Sulfate 100 ml @ 100 mls/hr Q1H IVPB 08/09/18 09:30 08/09/18 13:29 08/09/18 11:04 Mirtazapine (Remeron) 30 mg BEDTIME ORAL 08/08/18 01:45 09/07/18 01:44 08/08/18 20:57 Morphine Sulfate (Morphine Sulfate) 1 mg Q2H PRN IVP For Pain 08/07/18 22:45 08/14/18 22:44 Morphine Sulfate (Morphine Sulfate) 4 mg Q4H PRN IVP Severe Pain (Pain Scale 7-10) 08/07/18 22:45 08/14/18 22:44 08/08/18 03:30 Nitroglycerin (Ntg) 0.4 mg Q5M X 3 DOSES PRN SL Prn Chest Pain 08/07/18 22:45 09/06/18 22:44 Ondansetron HCl (Zofran) 4 mg Q6H PRN IVP Nausea & Vomiting 08/08/18 05:00 09/07/18 04:59 Pantoprazole (Protonix) 40 mg DAILY ORAL 08/08/18 09:00 09/07/18 08:59 08/09/18 09:24 Piperacillin Sod/ Tazobactam Sod 3.375 gm/Sodium Chloride 110 ml @ 220 mls/hr EVERY 8 HOURS IVPB 08/08/18 06:00 08/15/18 05:59 08/09/18 05:08 Potassium Chloride (K-Dur) 40 meq DAILY ORAL 08/09/18 09:00 09/08/18 08:59 08/09/18 09:24 Temazepam (Restoril) 15 mg HSPRN PRN ORAL Insomnia 08/07/18 22:45 08/14/18 22:44 Assessment/Plan Problem List: (1) Severe protein-calorie malnutrition ICD Codes: E43 - Unspecified severe protein-calorie malnutrition SNOMED: 180442658 (2) Lung cancer metastatic to brain ICD Codes: C34.90 - Malignant neoplasm of unspecified part of unspecified bronchus or lung; C79.31 - Secondary malignant neoplasm of brain SNOMED: 24093941, 04390071 (3) Sepsis ICD Codes: A41.9 - Sepsis, unspecified organism SNOMED: 88655284 (4) Decubitus ulcer of left hip, stage 4 ICD Codes: L89.224 - Pressure ulcer of left hip, stage 4 SNOMED: 337733089, 976148956 Assessment/Plan wound care s/p debridement iv abx check cultures symptomatic treatment dvt prophylaxis Rosa Maria Palumbo MD Aug 09, 2018 12:28
[2018-08-09] MEDS ORDERED: Naloxone 0.4mg/ml Inj IV PRN (15:00)
--- NOTE | 2018-08-09 15:20 | General Progress Note ---
Assessment/Plan Problem List: (1) Decubitus ulcer of left hip, stage 4 ICD Codes: L89.224 - Pressure ulcer of left hip, stage 4 SNOMED: 498505777, 711324986 (2) Dehydration ICD Codes: E86.0 - Dehydration SNOMED: 04874910 (3) Malnutrition ICD Codes: E46 - Unspecified protein-calorie malnutrition SNOMED: 48678359 Qualifiers: Qualified Codes: E43 - Unspecified severe protein-calorie malnutrition (4) Lung cancer metastatic to brain ICD Codes: C34.90 - Malignant neoplasm of unspecified part of unspecified bronchus or lung; C79.31 - Secondary malignant neoplasm of brain SNOMED: 67340476, 48500857 (5) Severe protein-calorie malnutrition ICD Codes: E43 - Unspecified severe protein-calorie malnutrition SNOMED: 510770622 Status: unchanged Status Narrative 1. Decubitus of the ulcer of the left hip stage IV. The hip one appears to be infected. 2. Stage I sacral region decubitus. 3. Dehydration. 4. Malnutrition. 5. Lung cancer metastatic with brain and bone and sepsis. Assessment/Plan hydrate- antibiotics wound care Subjective ROS Limited/Unobtainable: No Constitutional: Reports: malaise, weakness Allergies: Coded Allergies: No Known Allergies (Unverified , 08/07/18) Objective Last 24 Hour Vital Signs Date Time Temp Pulse Resp B/P (MAP) Pulse Ox O2 Delivery O2 Flow Rate FiO2 08/09/18 12:00 98.0 92 16 137/74 (95) 98 08/09/18 09:00 Room Air 08/09/18 08:00 98.3 99 16 122/78 (93) 99 08/09/18 08:00 100 08/09/18 04:00 93 08/09/18 04:00 97.0 97 20 154/76 (102) 100 08/09/18 00:00 100 08/08/18 21:00 Room Air 08/08/18 20:00 97.0 92 20 121/62 (81) 95 08/08/18 20:00 94 08/08/18 16:00 97.9 108 20 118/79 (92) 97 08/08/18 16:00 101 Intake and Output 08/08/18 08/09/18 19:00 07:00 Intake Total 770 ml 745 ml Output Total 300 ml 500 ml Balance 470 ml 245 ml Intake Oral 720 ml IV Total 50 ml 745 ml Output Urine Total 300 ml 500 ml # Voids 3 # Bowel Movements 1 Laboratory Tests 08/08/18 17:32: Urine Color Pale yellow, Urine Appearance Clear, Urine pH 7, Urine Specific [place] 1.005, Urine Protein Negative, Urine Glucose (UA) Negative, Urine Ketones Negative, Urine Blood 1+H, Urine Nitrite Negative, Urine Bilirubin Negative, Urine Urobilinogen Normal, Urine Leukocyte Esterase Negative, Urine RBC 5-10H, Urine WBC 0, Urine Squamous Epithelial Cells Occasional, Urine Bacteria Occasional 08/09/18 05:10: White Blood Count 10.5, Red Blood Count 3.45L, Hemoglobin 8.7L, Hematocrit 27.5L , Mean Corpuscular Volume 80, Mean Corpuscular Hemoglobin 25.2L, Mean Corpuscular Hemoglobin Concent 31.7L, Red Cell Distribution Width 16.0H, Platelet Count 692H, Mean Platelet Volume 4.4L, Neutrophils (%) (Auto) 79.8H, Lymphocytes (%) (Auto) 11.3L, Monocytes (%) (Auto) 7.1, Eosinophils (%) (Auto) 1.3, Basophils (%) (Auto) 0.6, Sodium Level 136, Potassium Level 3.2L, Chloride Level 100, Carbon Dioxide Level 25, Anion Gap 11, Blood Urea Nitrogen 7, Creatinine 0.4L, Estimat Glomerular Filtration Rate > 60, Glucose Level 116H, Hemoglobin A1c 5.1, Lactic Acid Level 1.20, Uric Acid 1.2L, Calcium Level 8.7, Phosphorus Level 3.4, Magnesium Level 1.5L, Iron Level 14L, Total Iron Binding Capacity 181L, Percent Iron Saturation 8L, Unsaturated Iron Binding 167, Ferritin 784H, Total Bilirubin 0.2, Gamma Glutamyl Transpeptidase 51, Aspartate Amino Transf (AST/SGOT) 37, Alanine Aminotransferase (ALT/SGPT) 76, Alkaline Phosphatase 80, Troponin I 0.000, Pro-B-Type Natriuretic Peptide 458H, Total Protein 8.0, Albumin 2.0L, Globulin 6.0, Albumin/Globulin Ratio 0.3L, Vitamin B12 Level 1367H, Folate 11.7 Height (Feet): 5 Height (Inches): 8.00 Weight (Pounds): 122 General Appearance: no apparent distress, lethargic Cardiovascular: tachycardia Respiratory/Chest: decreased breath sounds Abdomen: soft Hema Smyth MD Aug 09, 2018 15:20
--- NOTE | 2018-08-09 15:45 | Operative Note - Dictated ---
DATE OF OPERATION: 08/07/2018 PREOPERATIVE DIAGNOSIS: Infected left hip unstageable/stage IV decubitus ulcer. POSTOPERATIVE DIAGNOSIS: Infected left hip stage IV decubitus ulcer, approximately 5 cm x 5 cm x 1 cm with tunneling in the anterior superior aspect. OPERATION PERFORMED: Excisional debridement of necrotic nonviable tissue of infected stage IV, left decubitus ulcer. ATTENDING SURGEON: Alli Parada M.D. MEDIA STRATEGIST: None. ANESTHESIOLOGIST: None. ESTIMATED BLOOD LOSS: Minimal. IV FLUIDS: Not applicable. ANTIBIOTICS: The patient was given IV Zosyn and IV vancomycin. SPECIMENS: Left hip decubitus fibrinous necrotic and eschar sent to pathology for review. Cultures taken. WOUND CLASSIFICATION: Class 4. INDICATIONS FOR PROCEDURE: This is a 68-year-old male who presented to the emergency department with worsening condition/deconditioning, weakness, fatigue, foul smelling purulent left hip wound. It has failed outpatient medical management. In speaking with the patient's who states that initially thought to have an abscess in the area and was treated with oral outpatient antibiotics for approximately a week since the wound has worsened and become more foul smelling and had more drainage and concern for underlying deeper abscess and condition worsening, therefore came to the emergency department for evaluation at which time was seen and noted to have a 5 cm left hip decubitus ulcer that seemed to be infected with a unstable eschar cap and foul odor and purulent discharge from around the open edges of the eschar cap. The patient was noted to have a leukocytosis and was tender in the area with periwound erythema/cellulitis. Given these findings, excisional debridement was indicated and recommended down to healthy viable tissue with removal of infected tissues. Risks, benefits, and alternatives were discussed with the patient's who expressed understanding and consent to the procedure which was performed at the bedside in the emergency department. DESCRIPTION OF PROCEDURE: The patient was made comfortable at the bedside and placed in the right lateral decubitus position with all bony prominences well padded. Consent was obtained and noted by both the patient and his . The left hip wound was identified to be 5 cm x 5 cm with unknown depth, but unstable eschar cap and very foul smelling with some purulent exudate noted in the open borders to be deep down to the at the least down past subcutaneous tissue of the left ischial tuberosity. Periwound edema and cellulitis was identified. The wound and the area were prepped and draped in standard surgical fashion using Betadine. The patient was given some pain medication preprocedure for comfort. Using a #10 scalpel, surgical scissors and instruments, the eschar cap and necrotic tissue were dissected out down to healthy viable tissue. The wound was noted to be 1 centimeter deep down to the ischial tuberosity with exposed muscle, tendon and bone. There are some tunneling in the anterior superior aspect identified. Cultures were taken. Specimen sent to pathology. Wound was cleansed with copious amounts of sterile normal saline and following this, TheraHoney and dressings were applied with appropriate wound care protocols. The patient was started on IV antibiotics for considerations of potential acute or acute on chronic osteomyelitis. The patient tolerated procedure well, was being admitted for IV antibiotics given failure of outpatient medical therapy. Alli Parada M.D. DR: Nupur JOB#: [id number] CC: [email or web address]
[2018-08-09 16:00] VITALS: BP 144/83
--- NOTE | 2018-08-09 17:46 | Consultation ---
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 Patient was placed on oral antibiotics for 1m week by PCP without improvement and worsening of ulcer becoming more foul smelling and with drainage. Upon admission, was noted patient to have unstageable ulcer with eschar, foul odor and purulent discharge with periwound erythema and swelling. No f/c, n/v/d. Patient underwent I+D of necrotic of L stage IV Hip decubitus ulcer 08/09 -OR findings: The left hip wound was identified to be 5 cm x 5 cm with unknown depth, but unstable eschar cap and very foul smelling with some purulent exudate noted in the open borders to be deep down to the at the least _ down past subcutaneous tissue of the left ischial tuberosity. Periwound edema and cellulitis was identified. the eschar cap and necrotic tissue were dissected out down to healthy viable tissue. The wound was noted to be 1 centimeter deep down to the ischial tuberosity with exposed muscle, tendon and bone. There are some tunneling in the anterior superior aspect identified. Allergies: Coded Allergies: No Known Allergies (Unverified , 08/07/18) Medication History Scheduled Aspirin* (Aspir 81*), 81 MG ORAL DAILY, (Reported) Calcium Carbonate/Vitamin D3 (Calcium 500 + D Tablet), 1 EACH PO DAILY, ( Reported) Ergocalciferol (Vitamin D2)* (Vitamin D*), 50,000 UNIT ORAL ONCE A WEEK, ( Reported) Fentanyl 100MCG Patch* (Fentanyl 100MCG Patch*), 1 PATCH TDERMAL EVERY 72 HOURS, (Reported) Mirtazapine* (Remeron*), 30 MG ORAL BEDTIME, (Reported) Polyethylene Glycol 3350* (Miralax*), 17 GM ORAL DAILY, (Reported) Sennosides (Senokot), 8.6 MG PO BID, (Reported) Trimethoprim/Sulfamethoxazole 160/800* (Bactrim Ds Tablet*), 1 TAB ORAL TWICE A DAY, (Reported) Zinc Sulfate (Zinc Sulfate*), 220 MG ORAL DAILY, (Reported) Scheduled PRN Hydrocodone Bit/Acetaminophen 10-325* (Hydrocodon-Acetaminophn 10-325*), 1 TAB ORAL Q4H PRN for Pain Scale (6-10), (Reported) Miscellaneous Medications Multivitamin W-Minerals/Lutein (Centrum Silver Ultra Men's Tab), 1 EACH PO, ( Reported) Vit B Cmplx & C#11/Ca/Dha/Q10 (Brain Qibto-Clh-Mb Q10 Tablet), 1 EACH PO, ( Reported) Patient History Healthcare decision maker Resuscitation status Full Code Advanced Directive on File Patient History Narrative Pmhx: as above Shx:bed bound, former smoker Fhx: non contributory Review of Systems All Other Systems: negative except mentioned in HPI Physical Exam Physical Exam Narrative General Appearance: no apparent distress, alert Lines, tubes and drains: peripheral HEENT: mucous membranes moist Neck: normal inspection Respiratory/Chest: normal breath sounds, no respiratory distress, no accessory muscle use Cardiovascular/Chest: tachycardia Abdomen: normal bowel sounds, non tender, soft, no organomegaly, no mass Extremities: no calf tenderness, normal capillary refill, no edema, no cyanosis , other Skin Exam: other - stage 4 left hip decubitus ulcer / stage 1 sacral decubitus Neurologic: alert, responsive Last 24 Hour Vital Signs Date Time Temp Pulse Resp B/P (MAP) Pulse Ox O2 Delivery O2 Flow Rate FiO2 08/09/18 12:00 98.0 92 16 137/74 (95) 98 08/09/18 09:00 Room Air 08/09/18 08:00 98.3 99 16 122/78 (93) 99 08/09/18 08:00 100 08/09/18 04:00 93 08/09/18 04:00 97.0 97 20 154/76 (102) 100 08/09/18 00:00 100 08/08/18 21:00 Room Air 08/08/18 20:00 97.0 92 20 121/62 (81) 95 08/08/18 20:00 94 Intake and Output 08/08/18 08/09/18 19:00 07:00 Intake Total 770 ml 745 ml Output Total 300 ml 500 ml Balance 470 ml 245 ml Intake Oral 720 ml IV Total 50 ml 745 ml Output Urine Total 300 ml 500 ml # Voids 3 # Bowel Movements 1 Laboratory Tests Test 08/08/18 17:32 08/09/18 05:10 Urine Color Pale yellow Urine Appearance Clear Urine pH 7 (4.5-8.0) Urine Specific [place] 1.005 (1.005-1.035) Urine Protein Negative (NEGATIVE) Urine Glucose (UA) Negative (NEGATIVE) Urine Ketones Negative (NEGATIVE) Urine Blood 1+ (NEGATIVE) H Urine Nitrite Negative (NEGATIVE) Urine Bilirubin Negative (NEGATIVE) Urine Urobilinogen Normal MG/DL (0.0-1.0) Urine Leukocyte Esterase Negative (NEGATIVE) Urine RBC 5-10 /HPF (0 - 0) H Urine WBC 0 /HPF (0 - 0) Urine Squamous Epithelial Cells Occasional /LPF Urine Bacteria Occasional /HPF (NONE) White Blood Count 10.5 K/UL (4.8-10.8) Red Blood Count 3.45 M/UL (4.70-6.10) L Hemoglobin 8.7 G/DL (14.2-18.0) L Hematocrit 27.5 % (42.0-52.0) L Mean Corpuscular Volume 80 FL (80-99) Mean Corpuscular Hemoglobin 25.2 PG (27.0-31.0) L Mean Corpuscular Hemoglobin Concent 31.7 G/DL (32.0-36.0) L Red Cell Distribution Width 16.0 % (11.6-14.8) H Platelet Count 692 K/UL (150-450) H Mean Platelet Volume 4.4 FL (6.5-10.1) L Neutrophils (%) (Auto) 79.8 % (45.0-75.0) H Lymphocytes (%) (Auto) 11.3 % (20.0-45.0) L Monocytes (%) (Auto) 7.1 % (1.0-10.0) Eosinophils (%) (Auto) 1.3 % (0.0-3.0) Basophils (%) (Auto) 0.6 % (0.0-2.0) Sodium Level 136 MMOL/L (136-145) Potassium Level 3.2 MMOL/L (3.5-5.1) L Chloride Level 100 MMOL/L (98-107) Carbon Dioxide Level 25 MMOL/L (21-32) Anion Gap 11 mmol/L (5-15) Blood Urea Nitrogen 7 mg/dL (7-18) Creatinine 0.4 MG/DL (0.55-1.30) L Estimat Glomerular Filtration Rate > 60 mL/min (>60) Glucose Level 116 MG/DL (74-106) H Hemoglobin A1c 5.1 % (4.3-6.0) Lactic Acid Level 1.20 mmol/L (0.4-2.0) Uric Acid 1.2 MG/DL (2.6-7.2) L Calcium Level 8.7 MG/DL (8.5-10.1) Phosphorus Level 3.4 MG/DL (2.5-4.9) Magnesium Level 1.5 MG/DL (1.8-2.4) L Iron Level 14 ug/dL (50-175) L Total Iron Binding Capacity 181 ug/dL (250-450) L Percent Iron Saturation 8 % (15-50) L Unsaturated Iron Binding 167 ug/dL (112-346) Ferritin 784 NG/ML (8-388) H Total Bilirubin 0.2 MG/DL (0.2-1.0) Gamma Glutamyl Transpeptidase 51 U/L (5-85) Aspartate Amino Transf (AST/SGOT) 37 U/L (15-37) Alanine Aminotransferase (ALT/SGPT) 76 U/L (12-78) Alkaline Phosphatase 80 U/L (46-116) Troponin I 0.000 ng/mL (0.000-0.056) Pro-B-Type Natriuretic Peptide 458 pg/mL (0-125) H Total Protein 8.0 G/DL (6.4-8.2) Albumin 2.0 G/DL (3.4-5.0) L Globulin 6.0 g/dL Albumin/Globulin Ratio 0.3 (1.0-2.7) L Vitamin B12 Level 1367 PG/ML (193-986) H Folate 11.7 NG/ML (8.6-58.9) Height (Feet): 5 Height (Inches): 8.00 Weight (Pounds): 122 Medications Current Medications Medications (Trade) Dose Ordered Sig/Efraín Route PRN Reason Start Time Stop Time Status Last Admin Dose Admin Acetaminophen (Tylenol) 650 mg Q4H PRN ORAL fever 08/07/18 22:45 09/06/18 22:44 Acetaminophen/ Hydrocodone Bitart ([place] 5/325) 1 tab Q4H PRN ORAL Moderate Pain (Pain Scale 4-6) 08/08/18 10:30 08/15/18 10:29 Dextrose (Dextrose 50%) 25 ml Q30M PRN IV Hypoglycemia 08/07/18 22:45 09/06/18 22:44 Dextrose (Dextrose 50%) 50 ml Q30M PRN IV Hypoglycemia 08/07/18 22:45 09/06/18 22:44 Dextrose/Sodium Chloride 1,000 ml @ 50 mls/hr Q20H IV 08/08/18 13:15 09/07/18 13:14 08/09/18 09:37 Diphenhydramine HCl (Benadryl) 25 mg Q6H PRN ORAL Itching/Pruritis 08/07/18 22:45 09/06/18 22:44 Docusate Sodium (Colace) 100 mg TID ORAL 08/08/18 18:00 09/06/18 23:14 08/09/18 12:28 Fentanyl (Duragesic) 1 patch Q72H TDERMAL 08/09/18 15:00 08/16/18 14:59 08/09/18 16:36 Heparin Sodium (Porcine) (Heparin 5000 units/ml) 5,000 units EVERY 12 HOURS SUBQ 08/07/18 23:00 09/06/18 22:59 08/09/18 09:31 Iron Sucrose 200 mg/Sodium Chloride 120 ml @ 240 mls/hr ONCE IV 08/09/18 21:00 08/09/18 22:30 Lorazepam (Ativan 2mg/ml 1ml) 0.5 mg Q4H PRN IV For Anxiety 08/07/18 22:45 08/14/18 22:44 Magnesium Hydroxide (Mom) 30 ml HSPRN PRN ORAL Constipation 08/07/18 22:45 09/06/18 22:44 Mirtazapine (Remeron) 30 mg BEDTIME ORAL 08/08/18 01:45 09/07/18 01:44 08/08/18 20:57 Miscellaneous Medication (fentaNYL Destruction) 1 ea Q72H MISC 08/12/18 15:00 09/11/18 14:59 Morphine Sulfate (Morphine Sulfate) 1 mg Q2H PRN IVP For Pain 08/07/18 22:45 08/14/18 22:44 Morphine Sulfate (Morphine Sulfate) 4 mg Q4H PRN IVP Severe Pain (Pain Scale 7-10) 08/07/18 22:45 08/14/18 22:44 08/08/18 03:30 Naloxone HCl (Narcan) 0.1 mg PRN IV RASS of 3 or 4 08/09/18 15:00 09/08/18 14:59 Nitroglycerin (Ntg) 0.4 mg Q5M X 3 DOSES PRN SL Prn Chest Pain 08/07/18 22:45 09/06/18 22:44 Ondansetron HCl (Zofran) 4 mg Q6H PRN IVP Nausea & Vomiting 08/08/18 05:00 09/07/18 04:59 Pantoprazole (Protonix) 40 mg DAILY ORAL 08/08/18 09:00 09/07/18 08:59 08/09/18 09:24 Piperacillin Sod/ Tazobactam Sod 3.375 gm/Sodium Chloride 110 ml @ 220 mls/hr EVERY 8 HOURS IVPB 08/08/18 06:00 08/15/18 05:59 08/09/18 14:18 Potassium Chloride (K-Dur) 40 meq DAILY ORAL 08/09/18 09:00 09/08/18 08:59 08/09/18 09:24 Temazepam (Restoril) 15 mg HSPRN PRN ORAL Insomnia 08/07/18 22:45 08/14/18 22:44 Assessment/Plan Assessment/Plan Abx: IV Vancomycin x1 08/07 Zosyn 08/07- Assessment: Infected L hip decubitus ulcer c/w Osteomyelitis -08/07 SP I+D of necrotic of L stage IV Hip decubitus ulcer ; cx GNR -OR findings: The left hip wound was identified to be 5 cm x 5 cm with unknown depth, but unstable eschar cap and very foul smelling with some purulent exudate noted in the open borders to be deep down to the at the least down past subcutaneous tissue of the left ischial tuberosity. Periwound edema and cellulitis was identified. the eschar cap and necrotic tissue were dissected out down to healthy viable tissue. The wound was noted to be 1 centimeter deep down to the ischial tuberosity with exposed muscle, tendon and bone. There were some tunneling in the anterior superior aspect identified. 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 Will continue to follow along with you. Discussed with RN, patient;s and Dr Parada. Malissa Barraza M.D. Aug 09, 2018 17:46
[2018-08-09] MEDS ORDERED: Vancomycin 1250mg/D5W 250ml IVPB ONE (19:30)
[2018-08-09 20:00] VITALS: BP 126/74
[2018-08-09] MEDS: Dyna-Hex 2% Top Sol 2oz TOPIC SCH (20:00)
[2018-08-09] MEDS ORDERED: Iron Sucrose 200 MG in NS 110 ML IV SCH (21:00)
[2018-08-10 04:00] VITALS: BP 121/67
[2018-08-10] MEDS: Piperacillin/Tazobactam 3.375 GM in NS 110 ML IVPB SCH (05:55)
[2018-08-10] MEDS: D5NS 1,000 ML IV SCH (05:55)
[2018-08-10 08:00] VITALS: BP 101/61
[2018-08-10 08:00] LABS: BASOPHILS % (AUTO) 0.5 % (0.0-2.0); EOSINOPHILS % (AUTO) 4.2 % (0.0-3.0); HEMOGLOBIN 8.7 G/DL (14.2-18.0); LYMPHOCYTES % (AUTO) 12.2 % (20.0-45.0); MEAN CORPUSCULAR VOLUME 80 FL (80-99); NEUTROPHILS % (AUTO) 75.1 % (45.0-75.0); PLATELET COUNT 642 K/UL (150-450); RED BLOOD COUNT 3.49 M/UL (4.70-6.10); RED CELL DISTRIBUTION WIDTH 16.2 % (11.6-14.8)
[2018-08-10] MEDS ORDERED: Lidocaine 1% Plain 30 ml INJ PRN (08:00)
[2018-08-10] MEDS ORDERED: Heparin 2000 units/Ns 1000ml IV PRN (08:00)
[2018-08-10 08:14] LABS: ALANINE AMINOTRANSFERASE 94 U/L (12-78); ALBUMIN 1.9 G/DL (3.4-5.0); ALBUMIN/GLOBULIN RATIO 0.3 (1.0-2.7); ALKALINE PHOSPHATASE 82 U/L (46-116); ANION GAP 12 mmol/L (5-15); ASPARTATE AMINO TRANSFERASE 44 U/L (15-37); BILIRUBIN,TOTAL 0.2 MG/DL (0.2-1.0); BLOOD UREA NITROGEN 11 mg/dL (7-18); CALCIUM 8.6 MG/DL (8.5-10.1); CARBON DIOXIDE 24 MMOL/L (21-32); CHLORIDE 102 MMOL/L (98-107); CREATININE 0.5 MG/DL (0.55-1.30); POTASSIUM 3.5 MMOL/L (3.5-5.1); SODIUM 137 MMOL/L (136-145)
[2018-08-10] MEDS: Heparin 5000 units/ml inj SUBQ SCH ×2 (09:00→20:25)
[2018-08-10] MEDS: Docusate 100mg cap ORAL SCH ×3 (09:43→18:00)
[2018-08-10] MEDS: Vancomycin 500mg/D5W 110ml IVPB SCH ×4 (09:44→22:29)
--- NOTE | 2018-08-10 10:29 | Diagnostic Imaging Report ---
Indications: Needs long-term IV access Technique: Ultrasound confirms patent compressible left basilic vein. Total sterile technique, including sterile probe cover and sterile gel, hat, mask, sterile gown, large sterile drape, and preparation with 2% chlorhexidine utilized. Local anesthesia with 1% lidocaine. Under real-time ultrasound guidance, puncture basilic vein using 21-gauge needle, documented and archived, passage 0.018 guidewire under direct fluoroscopy, which was used to determine appropriate catheter length, exchange for 5 [place] peel-away sheath. 5 [place] Bard dual-lumen power PICC cut to 43 cm. It was inserted through the peel-away sheath. Peel-away sheath and guidewire removed. Catheter fixed to the skin. Both catheter ports aspirated and flushed. Patient tolerated procedure well, without immediate complication. Digital radiograph documents satisfactory catheter tip position, at the cavoatrial junction. Total fluoroscopy time 0.3 minutes. Total dose area product 3.6 dGycm2 Total number of images: 1 Impression: Successful placement of left arm PICC under sonographic and fluoroscopic guidance, as described above.
--- NOTE | 2018-08-10 10:48 | General Progress Note ---
Assessment/Plan Problem List: (1) Decubitus ulcer of left hip, stage 4 ICD Codes: L89.224 - Pressure ulcer of left hip, stage 4 SNOMED: 279609189, 339365218 (2) Dehydration ICD Codes: E86.0 - Dehydration SNOMED: 87597684 (3) Malnutrition ICD Codes: E46 - Unspecified protein-calorie malnutrition SNOMED: 33165399 Qualifiers: Qualified Codes: E43 - Unspecified severe protein-calorie malnutrition (4) Lung cancer metastatic to brain ICD Codes: C34.90 - Malignant neoplasm of unspecified part of unspecified bronchus or lung; C79.31 - Secondary malignant neoplasm of brain SNOMED: 92468581, 75713662 (5) Severe protein-calorie malnutrition ICD Codes: E43 - Unspecified severe protein-calorie malnutrition SNOMED: 517173937 Status: unchanged Assessment/Plan hydrate- antibiotics per ID PICC wound care DC in 1-2 days Subjective ROS Limited/Unobtainable: No Constitutional: Reports: malaise, weakness Allergies: Coded Allergies: No Known Allergies (Unverified , 08/07/18) Objective Last 24 Hour Vital Signs Date Time Temp Pulse Resp B/P (MAP) Pulse Ox O2 Delivery O2 Flow Rate FiO2 08/10/18 09:00 Room Air 08/10/18 08:00 99.0 108 18 101/61 (74) 97 08/10/18 08:00 110 08/10/18 04:00 97.0 96 18 121/67 (85) 96 08/10/18 04:00 106 08/10/18 00:00 104 08/09/18 21:00 Room Air 08/09/18 20:00 106 08/09/18 20:00 99.0 106 20 126/74 (91) 96 08/09/18 16:00 111 08/09/18 16:00 99.0 103 18 144/83 (103) 98 08/09/18 12:00 93 08/09/18 12:00 98.0 92 16 137/74 (95) 98 Intake and Output 08/09/18 08/10/18 19:00 07:00 Intake Total 360 ml 820 ml Output Total 500 ml 750 ml Balance -140 ml 70 ml Intake Oral 360 ml 270 ml IV Total 550 ml Output Urine Total 500 ml 750 ml Laboratory Tests 08/10/18 07:50: White Blood Count 12.0H, Red Blood Count 3.49L, Hemoglobin 8.7L, Hematocrit 28.0L, Mean Corpuscular Volume 80, Mean Corpuscular Hemoglobin 24.8L, Mean Corpuscular Hemoglobin Concent 31.0L, Red Cell Distribution Width 16.2H, Platelet Count 642H, Mean Platelet Volume 4.3L, Neutrophils (%) (Auto) 75.1H, Lymphocytes (%) (Auto) 12.2L, Monocytes (%) (Auto) 8.0, Eosinophils (%) (Auto) 4.2H, Basophils (%) (Auto) 0.5, Erythrocyte Sedimentation Rate 119H, Sodium Level 137, Potassium Level 3.5, Chloride Level 102, Carbon Dioxide Level 24, Anion Gap 12, Blood Urea Nitrogen 11, Creatinine 0.5L, Estimat Glomerular Filtration Rate > 60, Glucose Level 117H, Calcium Level 8.6, Total Bilirubin 0.2 , Aspartate Amino Transf (AST/SGOT) 44H, Alanine Aminotransferase (ALT/SGPT) 94H , Alkaline Phosphatase 82, C-Reactive Protein, Quantitative 17.3H, Total Protein 7.6, Albumin 1.9L, Globulin 5.7, Albumin/Globulin Ratio 0.3L Height (Feet): 5 Height (Inches): 8.00 Weight (Pounds): 122 General Appearance: no apparent distress Cardiovascular: tachycardia Respiratory/Chest: decreased breath sounds Abdomen: soft Hema Smyth MD Aug 10, 2018 10:48
--- NOTE | 2018-08-10 11:58 | Infectious Diseases Prog Note ---
Assessment/Plan Assessment/Plan Assessment: Infected L hip decubitus ulcer c/w Osteomyelitis -08/07 SP I+D of necrotic of L stage IV Hip decubitus ulcer ; cx ESBL K.pna ( I Zosyn; S Ertapenem) -OR findings: The left hip wound was identified to be 5 cm x 5 cm with unknown depth, but unstable eschar cap and very foul smelling with some purulent exudate noted in the open borders to be deep down to the at the least down past subcutaneous tissue of the left ischial tuberosity. Periwound edema and cellulitis was identified. the eschar cap and necrotic tissue were dissected out down to healthy viable tissue. The wound was noted to be 1 centimeter deep down to the ischial tuberosity with exposed muscle, tendon and bone. There were some tunneling in the anterior superior aspect identified. 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 Will continue to follow along with you. Discussed with RN, patient;s and Dr Parada. Subjective Allergies: Coded Allergies: No Known Allergies (Unverified , 08/07/18) Objective Vital Signs Last 24 Hour Vital Signs Date Time Temp Pulse Resp B/P (MAP) Pulse Ox O2 Delivery O2 Flow Rate FiO2 08/10/18 09:00 Room Air 08/10/18 08:00 99.0 108 18 101/61 (74) 97 08/10/18 08:00 110 08/10/18 04:00 97.0 96 18 121/67 (85) 96 08/10/18 04:00 106 08/10/18 00:00 104 08/09/18 21:00 Room Air 08/09/18 20:00 106 08/09/18 20:00 99.0 106 20 126/74 (91) 96 08/09/18 16:00 111 08/09/18 16:00 99.0 103 18 144/83 (103) 98 08/09/18 12:00 93 08/09/18 12:00 98.0 92 16 137/74 (95) 98 Height (Feet): 5 Height (Inches): 8.00 Weight (Pounds): 122 Microbiology Date/Time Source Procedure Growth Status 08/07/18 21:55 Blood Blood Culture - Preliminary NO GROWTH AFTER 48 HOURS Resulted 08/07/18 21:40 Blood Blood Culture - Preliminary NO GROWTH AFTER 48 HOURS Resulted 08/07/18 22:10 Hip Right Gram Stain - Final Resulted 08/07/18 22:10 Wound Culture - Preliminary Klebsiella Pneumoniae Usual Skin Tonie Resulted Laboratory Tests Test 08/10/18 07:50 White Blood Count 12.0 K/UL (4.8-10.8) H Red Blood Count 3.49 M/UL (4.70-6.10) L Hemoglobin 8.7 G/DL (14.2-18.0) L Hematocrit 28.0 % (42.0-52.0) L Mean Corpuscular Volume 80 FL (80-99) Mean Corpuscular Hemoglobin 24.8 PG (27.0-31.0) L Mean Corpuscular Hemoglobin Concent 31.0 G/DL (32.0-36.0) L Red Cell Distribution Width 16.2 % (11.6-14.8) H Platelet Count 642 K/UL (150-450) H Mean Platelet Volume 4.3 FL (6.5-10.1) L Neutrophils (%) (Auto) 75.1 % (45.0-75.0) H Lymphocytes (%) (Auto) 12.2 % (20.0-45.0) L Monocytes (%) (Auto) 8.0 % (1.0-10.0) Eosinophils (%) (Auto) 4.2 % (0.0-3.0) H Basophils (%) (Auto) 0.5 % (0.0-2.0) Erythrocyte Sedimentation Rate 119 MM/HR (0-20) H Sodium Level 137 MMOL/L (136-145) Potassium Level 3.5 MMOL/L (3.5-5.1) Chloride Level 102 MMOL/L (98-107) Carbon Dioxide Level 24 MMOL/L (21-32) Anion Gap 12 mmol/L (5-15) Blood Urea Nitrogen 11 mg/dL (7-18) Creatinine 0.5 MG/DL (0.55-1.30) L Estimat Glomerular Filtration Rate > 60 mL/min (>60) Glucose Level 117 MG/DL (74-106) H Calcium Level 8.6 MG/DL (8.5-10.1) Total Bilirubin 0.2 MG/DL (0.2-1.0) Aspartate Amino Transf (AST/SGOT) 44 U/L (15-37) H Alanine Aminotransferase (ALT/SGPT) 94 U/L (12-78) H Alkaline Phosphatase 82 U/L (46-116) C-Reactive Protein, Quantitative 17.3 mg/dL (0.00-0.90) H Total Protein 7.6 G/DL (6.4-8.2) Albumin 1.9 G/DL (3.4-5.0) L Globulin 5.7 g/dL Albumin/Globulin Ratio 0.3 (1.0-2.7) L Current Medications Medications (Trade) Dose Ordered Sig/Efraín Route PRN Reason Start Time Stop Time Status Last Admin Dose Admin Acetaminophen (Tylenol) 650 mg Q4H PRN ORAL fever 08/07/18 22:45 09/06/18 22:44 Acetaminophen/ Hydrocodone Bitart ([place] 5/325) 1 tab Q4H PRN ORAL Moderate Pain (Pain Scale 4-6) 08/08/18 10:30 08/15/18 10:29 Chlorhexidine Gluconate (Joaquina-Hex 2%) 1 applic DAILY@1999 TOPIC 08/09/18 20:00 09/08/18 19:59 Dextrose (Dextrose 50%) 25 ml Q30M PRN IV Hypoglycemia 08/07/18 22:45 09/06/18 22:44 Dextrose (Dextrose 50%) 50 ml Q30M PRN IV Hypoglycemia 08/07/18 22:45 09/06/18 22:44 Dextrose/Sodium Chloride 1,000 ml @ 50 mls/hr Q20H IV 08/08/18 13:15 09/07/18 13:14 08/10/18 05:55 Diphenhydramine HCl (Benadryl) 25 mg Q6H PRN ORAL Itching/Pruritis 08/07/18 22:45 09/06/18 22:44 Docusate Sodium (Colace) 100 mg TID ORAL 08/08/18 18:00 09/06/18 23:14 08/10/18 09:43 Fentanyl (Duragesic) 1 patch Q72H TDERMAL 08/09/18 15:00 08/16/18 14:59 08/09/18 16:36 Heparin Sodium (Porcine) (Heparin 5000 units/ml) 5,000 units EVERY 12 HOURS SUBQ 08/07/18 23:00 09/06/18 22:59 08/09/18 09:31 Heparin Sodium/ Sodium Chloride (Heparin 2000 units/Ns 1000ml premix) 2,000 unit ONCE PRN IV PICC 08/10/18 08:00 08/10/18 23:59 Lidocaine HCl (Xylocaine 1% 30ml) 30 ml ONCE PRN INJ PICC 08/10/18 08:00 08/10/18 23:59 Lorazepam (Ativan 2mg/ml 1ml) 0.5 mg Q4H PRN IV For Anxiety 08/07/18 22:45 08/14/18 22:44 Magnesium Hydroxide (Mom) 30 ml HSPRN PRN ORAL Constipation 08/07/18 22:45 09/06/18 22:44 Mirtazapine (Remeron) 30 mg BEDTIME ORAL 08/08/18 01:45 09/07/18 01:44 08/09/18 21:44 Miscellaneous Medication (fentaNYL Destruction) 1 ea Q72H MISC 08/12/18 15:00 09/11/18 14:59 Morphine Sulfate (Morphine Sulfate) 1 mg Q2H PRN IVP For Pain 08/07/18 22:45 08/14/18 22:44 Morphine Sulfate (Morphine Sulfate) 4 mg Q4H PRN IVP Severe Pain (Pain Scale 7-10) 08/07/18 22:45 08/14/18 22:44 08/08/18 03:30 Naloxone HCl (Narcan) 0.1 mg PRN IV RASS of 3 or 4 08/09/18 15:00 09/08/18 14:59 Nitroglycerin (Ntg) 0.4 mg Q5M X 3 DOSES PRN SL Prn Chest Pain 08/07/18 22:45 09/06/18 22:44 Ondansetron HCl (Zofran) 4 mg Q6H PRN IVP Nausea & Vomiting 08/08/18 05:00 09/07/18 04:59 Pantoprazole (Protonix) 40 mg DAILY ORAL 08/08/18 09:00 09/07/18 08:59 08/10/18 09:43 Piperacillin Sod/ Tazobactam Sod 3.375 gm/Sodium Chloride 110 ml @ 220 mls/hr EVERY 8 HOURS IVPB 08/08/18 06:00 08/15/18 05:59 08/10/18 05:55 Potassium Chloride (K-Dur) 40 meq DAILY ORAL 08/09/18 09:00 09/08/18 08:59 08/10/18 09:44 Temazepam (Restoril) 15 mg HSPRN PRN ORAL Insomnia 08/07/18 22:45 08/14/18 22:44 Vancomycin HCl (Vanco rx to dose) 1 ea DAILY PRN MISC Per rx protocol 08/09/18 17:45 09/08/18 17:44 Vancomycin HCl 500 mg/Dextrose 110 ml @ 110 mls/hr Q12HR IVPB 08/10/18 09:00 08/15/18 08:59 08/10/18 09:44 Malissa Barraza M.D. Aug 10, 2018 11:58
[2018-08-10 12:00] VITALS: BP 149/86
--- NOTE | 2018-08-10 12:04 | Pulmonology Progress Note ---
Assessment/Plan Problems: (1) Severe protein-calorie malnutrition (2) Lung cancer metastatic to brain (3) Sepsis (4) Decubitus ulcer of left hip, stage 4 Assessment/Plan ate well, no new complains f/u cultures ID note reviewed and appreciated wound care pt's will need emotional support. dvt prophylaxis. respiratory treatment Subjective ROS Limited/Unobtainable: No Constitutional: Reports: no symptoms HEENT: Repors: no symptoms Respiratory: Reports: no symptoms Allergies: Coded Allergies: No Known Allergies (Unverified , 08/07/18) Objective Last 24 Hour Vital Signs Date Time Temp Pulse Resp B/P (MAP) Pulse Ox O2 Delivery O2 Flow Rate FiO2 08/10/18 09:00 Room Air 08/10/18 08:00 99.0 108 18 101/61 (74) 97 08/10/18 08:00 110 08/10/18 04:00 97.0 96 18 121/67 (85) 96 08/10/18 04:00 106 08/10/18 00:00 104 08/09/18 21:00 Room Air 08/09/18 20:00 106 08/09/18 20:00 99.0 106 20 126/74 (91) 96 08/09/18 16:00 111 08/09/18 16:00 99.0 103 18 144/83 (103) 98 Intake and Output 08/09/18 08/10/18 19:00 07:00 Intake Total 360 ml 820 ml Output Total 500 ml 750 ml Balance -140 ml 70 ml Intake Oral 360 ml 270 ml IV Total 550 ml Output Urine Total 500 ml 750 ml General Appearance: WD/WN HEENT: normocephalic, atraumatic Respiratory/Chest: chest wall non-tender, lungs clear Cardiovascular: normal peripheral pulses, normal rate Abdomen: normal bowel sounds, soft, non tender Genitourinary: normal external genitalia Extremities: no cyanosis Skin: no rash, no ulcers Neurologic/Psychiatric: rivet sorter II-XII grossly normal Microbiology Date/Time Source Procedure Growth Status 08/07/18 21:55 Blood Blood Culture - Preliminary NO GROWTH AFTER 48 HOURS Resulted 08/07/18 21:40 Blood Blood Culture - Preliminary NO GROWTH AFTER 48 HOURS Resulted 08/07/18 22:10 Hip Right Gram Stain - Final Resulted 08/07/18 22:10 Wound Culture - Preliminary Klebsiella Pneumoniae Usual Skin Tonie Resulted Laboratory Tests 08/10/18 07:50: White Blood Count 12.0H, Red Blood Count 3.49L, Hemoglobin 8.7L, Hematocrit 28.0L, Mean Corpuscular Volume 80, Mean Corpuscular Hemoglobin 24.8L, Mean Corpuscular Hemoglobin Concent 31.0L, Red Cell Distribution Width 16.2H, Platelet Count 642H, Mean Platelet Volume 4.3L, Neutrophils (%) (Auto) 75.1H, Lymphocytes (%) (Auto) 12.2L, Monocytes (%) (Auto) 8.0, Eosinophils (%) (Auto) 4.2H, Basophils (%) (Auto) 0.5, Erythrocyte Sedimentation Rate 119H, Sodium Level 137, Potassium Level 3.5, Chloride Level 102, Carbon Dioxide Level 24, Anion Gap 12, Blood Urea Nitrogen 11, Creatinine 0.5L, Estimat Glomerular Filtration Rate > 60, Glucose Level 117H, Calcium Level 8.6, Total Bilirubin 0.2 , Aspartate Amino Transf (AST/SGOT) 44H, Alanine Aminotransferase (ALT/SGPT) 94H , Alkaline Phosphatase 82, C-Reactive Protein, Quantitative 17.3H, Total Protein 7.6, Albumin 1.9L, Globulin 5.7, Albumin/Globulin Ratio 0.3L Current Medications Medications (Trade) Dose Ordered Sig/Efraín Route PRN Reason Start Time Stop Time Status Last Admin Dose Admin Acetaminophen (Tylenol) 650 mg Q4H PRN ORAL fever 08/07/18 22:45 09/06/18 22:44 Acetaminophen/ Hydrocodone Bitart ([place] 5/325) 1 tab Q4H PRN ORAL Moderate Pain (Pain Scale 4-6) 08/08/18 10:30 08/15/18 10:29 Chlorhexidine Gluconate (Joaquina-Hex 2%) 1 applic DAILY@2000 TOPIC 08/09/18 20:00 09/08/18 19:59 Dextrose (Dextrose 50%) 25 ml Q30M PRN IV Hypoglycemia 08/07/18 22:45 09/06/18 22:44 Dextrose (Dextrose 50%) 50 ml Q30M PRN IV Hypoglycemia 08/07/18 22:45 09/06/18 22:44 Dextrose/Sodium Chloride 1,000 ml @ 50 mls/hr Q20H IV 08/08/18 13:15 09/07/18 13:14 08/10/18 05:55 Diphenhydramine HCl (Benadryl) 25 mg Q6H PRN ORAL Itching/Pruritis 08/07/18 22:45 09/06/18 22:44 Docusate Sodium (Colace) 100 mg TID ORAL 08/08/18 18:00 09/06/18 23:14 08/10/18 09:43 Ertapenem 1 gm/ Sodium Chloride 55 ml @ 110 mls/hr Q24H IVPB 08/10/18 13:00 08/15/18 12:59 Fentanyl (Duragesic) 1 patch Q72H TDERMAL 08/09/18 15:00 08/16/18 14:59 08/09/18 16:36 Heparin Sodium (Porcine) (Heparin 5000 units/ml) 5,000 units EVERY 12 HOURS SUBQ 08/07/18 23:00 09/06/18 22:59 08/09/18 09:31 Heparin Sodium/ Sodium Chloride (Heparin 2000 units/Ns 1000ml premix) 2,000 unit ONCE PRN IV PICC 08/10/18 08:00 08/10/18 23:59 Lidocaine HCl (Xylocaine 1% 30ml) 30 ml ONCE PRN INJ PICC 08/10/18 08:00 08/10/18 23:59 Lorazepam (Ativan 2mg/ml 1ml) 0.5 mg Q4H PRN IV For Anxiety 08/07/18 22:45 08/14/18 22:44 Magnesium Hydroxide (Mom) 30 ml HSPRN PRN ORAL Constipation 08/07/18 22:45 09/06/18 22:44 Mirtazapine (Remeron) 30 mg BEDTIME ORAL 08/08/18 01:45 09/07/18 01:44 08/09/18 21:44 Miscellaneous Medication (fentaNYL Destruction) 1 ea Q72H MISC 08/12/18 15:00 09/11/18 14:59 Morphine Sulfate (Morphine Sulfate) 1 mg Q2H PRN IVP For Pain 08/07/18 22:45 08/14/18 22:44 Morphine Sulfate (Morphine Sulfate) 4 mg Q4H PRN IVP Severe Pain (Pain Scale 7-10) 08/07/18 22:45 08/14/18 22:44 08/08/18 03:30 Naloxone HCl (Narcan) 0.1 mg PRN IV RASS of 3 or 4 08/09/18 15:00 09/08/18 14:59 Nitroglycerin (Ntg) 0.4 mg Q5M X 3 DOSES PRN SL Prn Chest Pain 08/07/18 22:45 09/06/18 22:44 Ondansetron HCl (Zofran) 4 mg Q6H PRN IVP Nausea & Vomiting 08/08/18 05:00 09/07/18 04:59 Pantoprazole (Protonix) 40 mg DAILY ORAL 08/08/18 09:00 09/07/18 08:59 08/10/18 09:43 Potassium Chloride (K-Dur) 40 meq DAILY ORAL 08/09/18 09:00 09/08/18 08:59 08/10/18 09:44 Temazepam (Restoril) 15 mg HSPRN PRN ORAL Insomnia 08/07/18 22:45 08/14/18 22:44 Vancomycin HCl (Vanco rx to dose) 1 ea DAILY PRN MISC Per rx protocol 08/09/18 17:45 09/08/18 17:44 Vancomycin HCl 500 mg/Dextrose 110 ml @ 110 mls/hr Q12HR IVPB 08/10/18 09:00 08/15/18 08:59 08/10/18 09:44 Rosa Maria Palumbo MD Aug 10, 2018 12:04
[2018-08-10] MEDS ORDERED: AMLODIPINE BESY10 MG ORAL (12:11)
[2018-08-10] MEDS ORDERED: AMOX TR-K CLV1 EAC2 ORAL (12:12)
[2018-08-10] MEDS ORDERED: BETHANECHOL CHL25 MG ORAL (12:16)
[2018-08-10] MEDS ORDERED: ALPHAGAN P5 M2 OP (12:19)
[2018-08-10] MEDS ORDERED: CATAPRES0.1 MG ORAL (12:21)
[2018-08-10] MEDS ORDERED: DONEPEZIL HCL10 MG ORAL (12:23)
[2018-08-10] MEDS ORDERED: PROSCAR5 MG ORAL (12:23)
[2018-08-10] MEDS ORDERED: HYDRALAZINE HC100 MG ORAL (12:24)
[2018-08-10] MEDS ORDERED: LISINOPRIL5 MG ORAL (12:25)
[2018-08-10] MEDS ORDERED: METOPROLOL TAR100 M1 ORAL (12:25)
[2018-08-10] MEDS ORDERED: MIRTAZAPINE7.5 MG ORAL (12:26)
[2018-08-10] MEDS ORDERED: STARLIX60 MG ORAL (12:27)
[2018-08-10] MEDS ORDERED: TAMSULOSIN HCL0.4 MG ORAL (12:28)
--- NOTE | 2018-08-10 12:49 | General Surgery Progress Note ---
General Surgery-Progress Note Subjective Additional Comments no acute events. doing well. more comfortable today. awake and responsive Objective Last 24 Hour Vital Signs Date Time Temp Pulse Resp B/P (MAP) Pulse Ox O2 Delivery O2 Flow Rate FiO2 08/10/18 09:00 Room Air 08/10/18 08:00 99.0 108 18 101/61 (74) 97 08/10/18 08:00 110 08/10/18 04:00 97.0 96 18 121/67 (85) 96 08/10/18 04:00 106 08/10/18 00:00 104 08/09/18 21:00 Room Air 08/09/18 20:00 106 08/09/18 20:00 99.0 106 20 126/74 (91) 96 08/09/18 16:00 111 08/09/18 16:00 99.0 103 18 144/83 (103) 98 I&O Intake and Output 08/09/18 08/10/18 19:00 07:00 Intake Total 360 ml 820 ml Output Total 500 ml 750 ml Balance -140 ml 70 ml Intake Oral 360 ml 270 ml IV Total 550 ml Output Urine Total 500 ml 750 ml Dressing: saturated Wound: other Drains: other Cardiovascular: RSR Respiratory: clear Abdomen: soft, flat, non-tender, present bowel sounds Extremities: other Laboratory Tests Test 08/10/18 07:50 White Blood Count 12.0 K/UL (4.8-10.8) H Red Blood Count 3.49 M/UL (4.70-6.10) L Hemoglobin 8.7 G/DL (14.2-18.0) L Hematocrit 28.0 % (42.0-52.0) L Mean Corpuscular Volume 80 FL (80-99) Mean Corpuscular Hemoglobin 24.8 PG (27.0-31.0) L Mean Corpuscular Hemoglobin Concent 31.0 G/DL (32.0-36.0) L Red Cell Distribution Width 16.2 % (11.6-14.8) H Platelet Count 642 K/UL (150-450) H Mean Platelet Volume 4.3 FL (6.5-10.1) L Neutrophils (%) (Auto) 75.1 % (45.0-75.0) H Lymphocytes (%) (Auto) 12.2 % (20.0-45.0) L Monocytes (%) (Auto) 8.0 % (1.0-10.0) Eosinophils (%) (Auto) 4.2 % (0.0-3.0) H Basophils (%) (Auto) 0.5 % (0.0-2.0) Erythrocyte Sedimentation Rate 119 MM/HR (0-20) H Sodium Level 137 MMOL/L (136-145) Potassium Level 3.5 MMOL/L (3.5-5.1) Chloride Level 102 MMOL/L (98-107) Carbon Dioxide Level 24 MMOL/L (21-32) Anion Gap 12 mmol/L (5-15) Blood Urea Nitrogen 11 mg/dL (7-18) Creatinine 0.5 MG/DL (0.55-1.30) L Estimat Glomerular Filtration Rate > 60 mL/min (>60) Glucose Level 117 MG/DL (74-106) H Calcium Level 8.6 MG/DL (8.5-10.1) Total Bilirubin 0.2 MG/DL (0.2-1.0) Aspartate Amino Transf (AST/SGOT) 44 U/L (15-37) H Alanine Aminotransferase (ALT/SGPT) 94 U/L (12-78) H Alkaline Phosphatase 82 U/L (46-116) C-Reactive Protein, Quantitative 17.3 mg/dL (0.00-0.90) H Total Protein 7.6 G/DL (6.4-8.2) Albumin 1.9 G/DL (3.4-5.0) L Globulin 5.7 g/dL Albumin/Globulin Ratio 0.3 (1.0-2.7) L Plan Problems: (1) Dehydration Assessment & Plan: poor intake recently fatigue -IV fluids -diet as tolerated monitor urine output trend labs (2) Malnutrition Assessment & Plan: Mets lung cancer s/p chemo / radiation overall poor prognosis poor appetite -diet as tolerated -IV F -nutrition consult -trend labs (3) Decubitus ulcer of left hip, stage 4 Assessment & Plan: stage 4 left hp decubitus ulcer on presentation foul odor, purulent drainage around unstable eschar cap. can be noted to be stage from around eschar cap 5cm x 5cm x 1cm deep with 3mm tunneling anterior superior aspect debridement performed at bedside and wound cleaned see note will likely need further debridement later as I can note some areas declining -diet as tolerated -dressing change to wound BID -turn q2h -air mattress -heel protectors thank you (4) Sepsis Assessment & Plan: leukocytosis improving tachycardic improving low urine output improving -see above plans -ivABX Additional Comments d/c planning will see if possible for snf picc line iv abx for 6 weeks for clinical normao Alli Parada Aug 10, 2018 12:49
[2018-08-10] MEDS: Norco 5mg/325mg tab ORAL PRN ×2 (14:36→20:24)
[2018-08-10] MEDS: Ertapenem 1 GM in NS 55 ML IVPB SCH (15:11)
[2018-08-10 16:00] VITALS: BP 145/82
[2018-08-10 20:00] VITALS: BP 159/100
[2018-08-10] MEDS: Dyna-Hex 2% Top Sol 2oz TOPIC SCH (20:23)
[2018-08-11] MEDS: D5NS 1,000 ML IV SCH (01:15)
[2018-08-11 04:00] VITALS: BP 114/70
[2018-08-11 06:36] LABS: HEMATOCRIT 25.7 % (42.0-52.0); HEMOGLOBIN 7.8 G/DL (14.2-18.0); MEAN CORPUSCULAR VOLUME 81 FL (80-99); PLATELET COUNT 654 K/UL (150-450); RED BLOOD COUNT 3.18 M/UL (4.70-6.10); RED CELL DISTRIBUTION WIDTH 16.3 % (11.6-14.8); WHITE BLOOD COUNT 12.5 K/UL (4.8-10.8)
[2018-08-11 06:51] LABS: ALANINE AMINOTRANSFERASE 75 U/L (12-78); ALBUMIN 1.9 G/DL (3.4-5.0); ALBUMIN/GLOBULIN RATIO 0.3 (1.0-2.7); ALKALINE PHOSPHATASE 80 U/L (46-116); ANION GAP 8 mmol/L (5-15); ASPARTATE AMINO TRANSFERASE 33 U/L (15-37); BILIRUBIN,TOTAL 0.2 MG/DL (0.2-1.0); BLOOD UREA NITROGEN 8 mg/dL (7-18); CALCIUM 8.7 MG/DL (8.5-10.1); CARBON DIOXIDE 26 MMOL/L (21-32); CHLORIDE 98 MMOL/L (98-107); CREATININE 0.4 MG/DL (0.55-1.30); PHOSPHORUS 3.3 MG/DL (2.5-4.9); POTASSIUM 3.9 MMOL/L (3.5-5.1); SODIUM 132 MMOL/L (136-145)
[2018-08-11 08:00] VITALS: BP 132/71
[2018-08-11] MEDS: Docusate 100mg cap ORAL SCH ×3 (08:54→18:00)
[2018-08-11] MEDS: Heparin 5000 units/ml inj SUBQ SCH ×2 (08:56→21:43)
[2018-08-11] MEDS ORDERED: Vancomycin 750mg/NS 250ml IVPB SCH (10:00)
--- NOTE | 2018-08-11 10:53 | General Progress Note ---
Assessment/Plan Problem List: (1) Decubitus ulcer of left hip, stage 4 ICD Codes: L89.224 - Pressure ulcer of left hip, stage 4 SNOMED: 142407131, 408591395 (2) Dehydration ICD Codes: E86.0 - Dehydration SNOMED: 65734620 (3) Malnutrition ICD Codes: E46 - Unspecified protein-calorie malnutrition SNOMED: 22811990 Qualifiers: Qualified Codes: E43 - Unspecified severe protein-calorie malnutrition (4) Lung cancer metastatic to brain ICD Codes: C34.90 - Malignant neoplasm of unspecified part of unspecified bronchus or lung; C79.31 - Secondary malignant neoplasm of brain SNOMED: 29705123, 91150138 (5) Severe protein-calorie malnutrition ICD Codes: E43 - Unspecified severe protein-calorie malnutrition SNOMED: 971656113 Status: stable Assessment/Plan transfuse DC hydrate- antibiotics per ID PICC wound care DC in 1-2 days Subjective ROS Limited/Unobtainable: No Constitutional: Reports: malaise, weakness Allergies: Coded Allergies: No Known Allergies (Unverified , 08/07/18) Objective Last 24 Hour Vital Signs Date Time Temp Pulse Resp B/P (MAP) Pulse Ox O2 Delivery O2 Flow Rate FiO2 08/11/18 08:00 98.0 109 21 132/71 (91) 95 08/11/18 04:00 98.0 90 19 114/70 (85) 96 08/11/18 04:00 106 08/11/18 00:00 112 08/10/18 21:00 Room Air 08/10/18 20:00 97.4 104 20 159/100 (119) 96 08/10/18 20:00 118 08/10/18 16:00 98.9 103 20 145/82 (103) 96 08/10/18 16:00 125 08/10/18 15:11 99.2 08/10/18 12:00 105 08/10/18 12:00 99.2 105 18 149/86 (107) 96 Intake and Output 08/10/18 08/11/18 18:59 06:59 Intake Total 360 ml 900 ml Output Total 700 ml 800 ml Balance -340 ml 100 ml Intake Oral 360 ml IV Total 660 ml Other 240 ml Output Urine Total 700 ml 800 ml # Bowel Movements 1 Current Medications Medications (Trade) Dose Ordered Sig/Efraín Route PRN Reason Start Time Stop Time Status Last Admin Dose Admin Acetaminophen (Tylenol) 650 mg Q4H PRN ORAL fever 08/07/18 22:45 09/06/18 22:44 Acetaminophen/ Hydrocodone Bitart ([place] 5/325) 1 tab Q4H PRN ORAL Moderate Pain (Pain Scale 4-6) 08/08/18 10:30 08/15/18 10:29 08/10/18 20:24 Chlorhexidine Gluconate (Joaquina-Hex 2%) 1 applic DAILY@2000 TOPIC 08/09/18 20:00 09/08/18 19:59 08/10/18 20:23 Dextrose (Dextrose 50%) 25 ml Q30M PRN IV Hypoglycemia 08/07/18 22:45 09/06/18 22:44 Dextrose (Dextrose 50%) 50 ml Q30M PRN IV Hypoglycemia 08/07/18 22:45 09/06/18 22:44 Diphenhydramine HCl (Benadryl) 25 mg Q6H PRN ORAL Itching/Pruritis 08/07/18 22:45 09/06/18 22:44 Docusate Sodium (Colace) 100 mg TID ORAL 08/08/18 18:00 09/06/18 23:14 08/11/18 08:54 Ertapenem 1 gm/ Sodium Chloride 55 ml @ 110 mls/hr Q24H IVPB 08/10/18 13:00 08/15/18 12:59 08/10/18 15:11 Fentanyl (Duragesic) 1 patch Q72H TDERMAL 08/09/18 15:00 08/16/18 14:59 08/09/18 16:36 Heparin Sodium (Porcine) (Heparin 5000 units/ml) 5,000 units EVERY 12 HOURS SUBQ 08/07/18 23:00 09/06/18 22:59 08/11/18 08:56 Lorazepam (Ativan 2mg/ml 1ml) 0.5 mg Q4H PRN IV For Anxiety 08/07/18 22:45 08/14/18 22:44 Magnesium Hydroxide (Mom) 30 ml HSPRN PRN ORAL Constipation 08/07/18 22:45 09/06/18 22:44 Mirtazapine (Remeron) 30 mg BEDTIME ORAL 08/08/18 01:45 09/07/18 01:44 08/10/18 20:23 Miscellaneous Medication (fentaNYL Destruction) 1 ea Q72H MISC 08/12/18 15:00 09/11/18 14:59 Morphine Sulfate (Morphine Sulfate) 1 mg Q2H PRN IVP For Pain 08/07/18 22:45 08/14/18 22:44 Morphine Sulfate (Morphine Sulfate) 4 mg Q4H PRN IVP Severe Pain (Pain Scale 7-10) 08/07/18 22:45 08/14/18 22:44 08/08/18 03:30 Naloxone HCl (Narcan) 0.1 mg PRN IV RASS of 3 or 4 08/09/18 15:00 09/08/18 14:59 Nitroglycerin (Ntg) 0.4 mg Q5M X 3 DOSES PRN SL Prn Chest Pain 08/07/18 22:45 09/06/18 22:44 Ondansetron HCl (Zofran) 4 mg Q6H PRN IVP Nausea & Vomiting 08/08/18 05:00 09/07/18 04:59 Pantoprazole (Protonix) 40 mg DAILY ORAL 08/08/18 09:00 09/07/18 08:59 08/11/18 08:54 Potassium Chloride (K-Dur) 40 meq DAILY ORAL 08/09/18 09:00 09/08/18 08:59 08/11/18 08:54 Temazepam (Restoril) 15 mg HSPRN PRN ORAL Insomnia 08/07/18 22:45 08/14/18 22:44 Vancomycin HCl (Vanco rx to dose) 1 ea DAILY PRN MISC Per rx protocol 08/09/18 17:45 09/08/18 17:44 Vancomycin/Sodium Chloride 250 ml @ 166.667 mls/hr Q12H IVPB 08/11/18 10:00 08/16/18 09:59 08/11/18 09:53 Laboratory Tests 08/11/18 05:15: White Blood Count 12.5H, Red Blood Count 3.18L, Hemoglobin 7.8L, Hematocrit 25.7L, Mean Corpuscular Volume 81, Mean Corpuscular Hemoglobin 24.5L, Mean Corpuscular Hemoglobin Concent 30.3L, Red Cell Distribution Width 16.3H, Platelet Count 654H, Mean Platelet Volume 4.3L, Neutrophils (%) (Auto) , Lymphocytes (%) (Auto) , Monocytes (%) (Auto) , Eosinophils (%) (Auto) , Basophils (%) (Auto) , Differential Total Cells Counted 100, Neutrophils % ( Manual) 65, Lymphocytes % (Manual) 15L, Monocytes % (Manual) 8, Eosinophils % ( Manual) 12H, Basophils % (Manual) 0, Band Neutrophils 0, Platelet Estimate IncreasedH, Platelet Morphology Normal, Sodium Level 132L, Potassium Level 3.9, Chloride Level 98, Carbon Dioxide Level 26, Anion Gap 8, Blood Urea Nitrogen 8, Creatinine 0.4L, Estimat Glomerular Filtration Rate > 60, Glucose Level 90, Calcium Level 8.7, Phosphorus Level 3.3, Magnesium Level 1.6L, Total Bilirubin 0.2, Aspartate Amino Transf (AST/SGOT) 33, Alanine Aminotransferase (ALT/SGPT) 75, Alkaline Phosphatase 80, Total Protein 7.4, Albumin 1.9L, Globulin 5.5, Albumin/Globulin Ratio 0.3L 08/11/18 08:20: Vancomycin Level Trough 5.0 Height (Feet): 5 Height (Inches): 8.00 Weight (Pounds): 124 General Appearance: no apparent distress, lethargic Cardiovascular: tachycardia Respiratory/Chest: decreased breath sounds Abdomen: soft Hema Smyth MD Aug 11, 2018 10:53
[2018-08-11 12:00] VITALS: BP 122/71
--- NOTE | 2018-08-11 12:21 | Pulmonology Progress Note ---
Assessment/Plan Problems: (1) Severe protein-calorie malnutrition (2) Lung cancer metastatic to brain (3) Sepsis (4) Decubitus ulcer of left hip, stage 4 Assessment/Plan doing ok no new complains f/u cultures, on Imipenem ID note reviewed and appreciated wound care pt's will need emotional support. dvt prophylaxis. respiratory treatment Subjective ROS Limited/Unobtainable: No Constitutional: Reports: no symptoms HEENT: Repors: no symptoms Allergies: Coded Allergies: No Known Allergies (Unverified , 08/07/18) Objective Last 24 Hour Vital Signs Date Time Temp Pulse Resp B/P (MAP) Pulse Ox O2 Delivery O2 Flow Rate FiO2 08/11/18 12:00 98.2 95 19 122/71 (88) 95 08/11/18 09:00 Room Air 08/11/18 08:00 98.0 109 21 132/71 (91) 95 08/11/18 07:58 109 08/11/18 04:00 98.0 90 19 114/70 (85) 96 08/11/18 04:00 106 08/11/18 00:00 112 08/10/18 21:00 Room Air 08/10/18 20:00 97.4 104 20 159/100 (119) 96 08/10/18 20:00 118 08/10/18 16:00 98.9 103 20 145/82 (103) 96 08/10/18 16:00 125 08/10/18 15:11 99.2 Intake and Output 08/10/18 08/11/18 18:59 06:59 Intake Total 360 ml 900 ml Output Total 700 ml 800 ml Balance -340 ml 100 ml Intake Oral 360 ml IV Total 660 ml Other 240 ml Output Urine Total 700 ml 800 ml # Bowel Movements 1 General Appearance: cachetic HEENT: normocephalic, atraumatic Respiratory/Chest: chest wall non-tender, lungs clear Cardiovascular: normal peripheral pulses, normal rate Abdomen: soft, non tender, no organomegaly Genitourinary: normal external genitalia Extremities: no clubbing Skin: no lesions Laboratory Tests 08/11/18 05:15: White Blood Count 12.5H, Red Blood Count 3.18L, Hemoglobin 7.8L, Hematocrit 25.7L, Mean Corpuscular Volume 81, Mean Corpuscular Hemoglobin 24.5L, Mean Corpuscular Hemoglobin Concent 30.3L, Red Cell Distribution Width 16.3H, Platelet Count 654H, Mean Platelet Volume 4.3L, Neutrophils (%) (Auto) , Lymphocytes (%) (Auto) , Monocytes (%) (Auto) , Eosinophils (%) (Auto) , Basophils (%) (Auto) , Differential Total Cells Counted 100, Neutrophils % ( Manual) 65, Lymphocytes % (Manual) 15L, Monocytes % (Manual) 8, Eosinophils % ( Manual) 12H, Basophils % (Manual) 0, Band Neutrophils 0, Platelet Estimate IncreasedH, Platelet Morphology Normal, Sodium Level 132L, Potassium Level 3.9, Chloride Level 98, Carbon Dioxide Level 26, Anion Gap 8, Blood Urea Nitrogen 8, Creatinine 0.4L, Estimat Glomerular Filtration Rate > 60, Glucose Level 90, Calcium Level 8.7, Phosphorus Level 3.3, Magnesium Level 1.6L, Total Bilirubin 0.2, Aspartate Amino Transf (AST/SGOT) 33, Alanine Aminotransferase (ALT/SGPT) 75, Alkaline Phosphatase 80, Total Protein 7.4, Albumin 1.9L, Globulin 5.5, Albumin/Globulin Ratio 0.3L 08/11/18 08:20: Vancomycin Level Trough 5.0 Current Medications Medications (Trade) Dose Ordered Sig/Efraín Route PRN Reason Start Time Stop Time Status Last Admin Dose Admin Acetaminophen (Tylenol) 650 mg Q4H PRN ORAL fever 08/07/18 22:45 09/06/18 22:44 Acetaminophen/ Hydrocodone Bitart ([place] 5/325) 1 tab Q4H PRN ORAL Moderate Pain (Pain Scale 4-6) 08/08/18 10:30 08/15/18 10:29 08/10/18 20:24 Chlorhexidine Gluconate (Joaquina-Hex 2%) 1 applic DAILY@2000 TOPIC 08/09/18 20:00 09/08/18 19:59 08/10/18 20:23 Dextrose (Dextrose 50%) 25 ml Q30M PRN IV Hypoglycemia 08/07/18 22:45 09/06/18 22:44 Dextrose (Dextrose 50%) 50 ml Q30M PRN IV Hypoglycemia 08/07/18 22:45 09/06/18 22:44 Diphenhydramine HCl (Benadryl) 25 mg Q6H PRN ORAL Itching/Pruritis 08/07/18 22:45 09/06/18 22:44 Docusate Sodium (Colace) 100 mg TID ORAL 08/08/18 18:00 09/06/18 23:14 08/11/18 08:54 Ertapenem 1 gm/ Sodium Chloride 55 ml @ 110 mls/hr Q24H IVPB 08/10/18 13:00 08/15/18 12:59 08/10/18 15:11 Fentanyl (Duragesic) 1 patch Q72H TDERMAL 08/09/18 15:00 08/16/18 14:59 08/09/18 16:36 Heparin Sodium (Porcine) (Heparin 5000 units/ml) 5,000 units EVERY 12 HOURS SUBQ 08/07/18 23:00 09/06/18 22:59 08/11/18 08:56 Lorazepam (Ativan 2mg/ml 1ml) 0.5 mg Q4H PRN IV For Anxiety 08/07/18 22:45 08/14/18 22:44 Magnesium Hydroxide (Mom) 30 ml HSPRN PRN ORAL Constipation 08/07/18 22:45 09/06/18 22:44 Mirtazapine (Remeron) 30 mg BEDTIME ORAL 08/08/18 01:45 09/07/18 01:44 08/10/18 20:23 Miscellaneous Medication (fentaNYL Destruction) 1 ea Q72H MISC 08/12/18 15:00 09/11/18 14:59 Morphine Sulfate (Morphine Sulfate) 1 mg Q2H PRN IVP For Pain 08/07/18 22:45 08/14/18 22:44 Morphine Sulfate (Morphine Sulfate) 4 mg Q4H PRN IVP Severe Pain (Pain Scale 7-10) 08/07/18 22:45 08/14/18 22:44 08/08/18 03:30 Naloxone HCl (Narcan) 0.1 mg PRN IV RASS of 3 or 4 08/09/18 15:00 09/08/18 14:59 Nitroglycerin (Ntg) 0.4 mg Q5M X 3 DOSES PRN SL Prn Chest Pain 08/07/18 22:45 09/06/18 22:44 Ondansetron HCl (Zofran) 4 mg Q6H PRN IVP Nausea & Vomiting 08/08/18 05:00 09/07/18 04:59 Pantoprazole (Protonix) 40 mg DAILY ORAL 08/08/18 09:00 09/07/18 08:59 08/11/18 08:54 Potassium Chloride (K-Dur) 40 meq DAILY ORAL 08/09/18 09:00 09/08/18 08:59 08/11/18 08:54 Temazepam (Restoril) 15 mg HSPRN PRN ORAL Insomnia 08/07/18 22:45 08/14/18 22:44 Vancomycin HCl (Vanco rx to dose) 1 ea DAILY PRN MISC Per rx protocol 08/09/18 17:45 09/08/18 17:44 Vancomycin/Sodium Chloride 250 ml @ 166.667 mls/hr Q12H IVPB 08/11/18 10:00 08/16/18 09:59 08/11/18 09:53 Rosa Maria Palumbo MD Aug 11, 2018 12:21
--- NOTE | 2018-08-11 13:23 | General Surgery Progress Note ---
General Surgery-Progress Note Subjective Additional Comments no acute events. anemia. labs noted. transfused prbc Objective Last 24 Hour Vital Signs Date Time Temp Pulse Resp B/P (MAP) Pulse Ox O2 Delivery O2 Flow Rate FiO2 08/11/18 12:00 98.2 95 19 122/71 (88) 95 08/11/18 09:00 Room Air 08/11/18 08:00 98.0 109 21 132/71 (91) 95 08/11/18 07:58 109 08/11/18 04:00 98.0 90 19 114/70 (85) 96 08/11/18 04:00 106 08/11/18 00:00 112 08/10/18 21:00 Room Air 08/10/18 20:00 97.4 104 20 159/100 (119) 96 08/10/18 20:00 118 08/10/18 16:00 98.9 103 20 145/82 (103) 96 08/10/18 16:00 125 08/10/18 15:11 99.2 I&O Intake and Output 08/10/18 08/11/18 19:00 07:00 Intake Total 410 ml 900 ml Output Total 700 ml 800 ml Balance -290 ml 100 ml Intake Oral 360 ml IV Total 50 ml 660 ml Other 240 ml Output Urine Total 700 ml 800 ml # Bowel Movements 1 Dressing: saturated Wound: other Drains: other Cardiovascular: RSR Respiratory: clear Abdomen: soft, flat, non-tender, present bowel sounds Extremities: no cyanosis, other Laboratory Tests Test 08/11/18 05:15 08/11/18 08:20 White Blood Count 12.5 K/UL (4.8-10.8) H Red Blood Count 3.18 M/UL (4.70-6.10) L Hemoglobin 7.8 G/DL (14.2-18.0) L Hematocrit 25.7 % (42.0-52.0) L Mean Corpuscular Volume 81 FL (80-99) Mean Corpuscular Hemoglobin 24.5 PG (27.0-31.0) L Mean Corpuscular Hemoglobin Concent 30.3 G/DL (32.0-36.0) L Red Cell Distribution Width 16.3 % (11.6-14.8) H Platelet Count 654 K/UL (150-450) H Mean Platelet Volume 4.3 FL (6.5-10.1) L Neutrophils (%) (Auto) % (45.0-75.0) Lymphocytes (%) (Auto) % (20.0-45.0) Monocytes (%) (Auto) % (1.0-10.0) Eosinophils (%) (Auto) % (0.0-3.0) Basophils (%) (Auto) % (0.0-2.0) Differential Total Cells Counted 100 Neutrophils % (Manual) 65 % (45-75) Lymphocytes % (Manual) 15 % (20-45) L Monocytes % (Manual) 8 % (1-10) Eosinophils % (Manual) 12 % (0-3) H Basophils % (Manual) 0 % (0-2) Band Neutrophils 0 % (0-8) Platelet Estimate Increased H Platelet Morphology Normal Sodium Level 132 MMOL/L (136-145) L Potassium Level 3.9 MMOL/L (3.5-5.1) Chloride Level 98 MMOL/L (98-107) Carbon Dioxide Level 26 MMOL/L (21-32) Anion Gap 8 mmol/L (5-15) Blood Urea Nitrogen 8 mg/dL (7-18) Creatinine 0.4 MG/DL (0.55-1.30) L Estimat Glomerular Filtration Rate > 60 mL/min (>60) Glucose Level 90 MG/DL (74-106) Calcium Level 8.7 MG/DL (8.5-10.1) Phosphorus Level 3.3 MG/DL (2.5-4.9) Magnesium Level 1.6 MG/DL (1.8-2.4) L Total Bilirubin 0.2 MG/DL (0.2-1.0) Aspartate Amino Transf (AST/SGOT) 33 U/L (15-37) Alanine Aminotransferase (ALT/SGPT) 75 U/L (12-78) Alkaline Phosphatase 80 U/L (46-116) Total Protein 7.4 G/DL (6.4-8.2) Albumin 1.9 G/DL (3.4-5.0) L Globulin 5.5 g/dL Albumin/Globulin Ratio 0.3 (1.0-2.7) L Vancomycin Level Trough 5.0 ug/mL (5.0-12.0) Plan Problems: (1) Dehydration Assessment & Plan: poor intake recently fatigue -IV fluids -diet as tolerated monitor urine output trend labs (2) Malnutrition Assessment & Plan: Mets lung cancer s/p chemo / radiation overall poor prognosis poor appetite -diet as tolerated -IV F -nutrition consult -trend labs (3) Decubitus ulcer of left hip, stage 4 Assessment & Plan: stage 4 left hp decubitus ulcer on presentation foul odor, purulent drainage around unstable eschar cap. can be noted to be stage from around eschar cap 5cm x 5cm x 1cm deep with 3mm tunneling anterior superior aspect debridement performed at bedside and wound cleaned see note will likely need further debridement later as I can note some areas declining -diet as tolerated -dressing change to wound BID -turn q2h -air mattress -heel protectors thank you (4) Sepsis Assessment & Plan: leukocytosis improving tachycardic improving low urine output improving -see above plans -ivABX d/c planning abx for clinical osteo diet as tolerated f/u outpatient Alli Parada Aug 11, 2018 13:23
[2018-08-11] MEDS: Ertapenem 1 GM in NS 55 ML IVPB SCH (14:12)
--- NOTE | 2018-08-11 14:18 | Consultation ---
Consult Note Consult Note HEMATOLOGY-ONCOLOGY CONSULTATION REFERRING PHYSICIAN: Alli Parada REASON FOR CONSULT: Leukocytosis, anemia, thrombocytosis DATE OF CONSULT: 08/11/2018 HPI 68 year old male with complex medical history presented with generalized malaise , fatigue, and worsening left hip wound with what was thought to be abscess. Patient with history of metastatic lung cancer s/p chemo and radiation. Last radiation was months ago and last chemotherapy was few weeks ago. Per the patients , first diagnosed with lung cancer after surgical biopsy performed for mass. Was then found to have mets to brain and potentially bone. Currently lives at home with and has home health care. Began to develop left hip wound 1 month ago and worsened last week. Was placed on oral Abx by PCP without improvement. Drainage worsening and condition poor therefore came to ED for evaluation. Was believed to have possible left hip abscess that failed outpatient medical therapy. Hematology services consulted for the evaluation of leukocytosis, anemia, and thrombocytosis. Labs and imaging have been reviewed. Allergies: Coded Allergies: No Known Allergies (Unverified , 08/07/18) Medication History Scheduled Aspirin* (Aspir 81*), 81 MG ORAL DAILY, (Reported) Ergocalciferol (Vitamin D2)* (Vitamin D*), 50,000 UNIT ORAL ONCE A WEEK, ( Reported) Fentanyl 100MCG Patch* (Fentanyl 100MCG Patch*), 1 PATCH TDERMAL EVERY 72 HOURS, (Reported) Hydrocodone Bit/Acetaminophen 10-325* (Hydrocodon-Acetaminophn 10-325*), 1 TAB ORAL Q4H, (Reported) Mirtazapine* (Remeron*), 30 MG ORAL BEDTIME, (Reported) Polyethylene Glycol 3350* (Miralax*), 17 GM ORAL DAILY, (Reported) Trimethoprim/Sulfamethoxazole 160/800* (Bactrim Ds Tablet*), 1 TAB ORAL TWICE A DAY, (Reported) Zinc Sulfate (Zinc Sulfate*), 220 MG ORAL DAILY, (Reported) Miscellaneous Medications Calcium Carbonate/Vitamin D3 (Calcium 250+D Tablet), 1 EACH PO, (Reported) Multivitamin W-Minerals/Lutein (Centrum Silver Ultra Men's Tab), 1 EACH PO, ( Reported) Sennosides (Senokot), 8.6 MG PO, (Reported) Vit B Cmplx & C#11/Ca/Dha/Q10 (Brain Dvznr-Zbd-Xy Q10 Tablet), 1 EACH PO, ( Reported) Patient History History Provided By: Patient, Family Member, Medical Record, Caregiver, PMD Healthcare decision maker Resuscitation status Advanced Directive on File Past Medical/Surgical History Past Medical/Surgical History: (1) Dehydration (2) Malnutrition (3) Stage 1 skin ulcer of sacral region (4) Decubitus ulcer of left hip, stage 4 (5) Lung cancer metastatic to brain (6) Sepsis Review of Systems All Other Systems: negative except mentioned in HPI Physical Exam General Appearance: no apparent distress, alert Lines, tubes and drains: peripheral HEENT: mucous membranes moist Neck: normal inspection Respiratory/Chest: normal breath sounds, no respiratory distress, no accessory muscle use Cardiovascular/Chest: tachycardia Abdomen: normal bowel sounds, non tender, soft, no organomegaly, no mass Extremities: no calf tenderness, normal capillary refill, no edema, no cyanosis , other Skin Exam: other - stage 4 left hip decubitus ulcer / stage 1 sacral decubitus Neurologic: alert, responsive Laboratory Tests Test 08/11/18 05:15 08/11/18 08:20 White Blood Count 12.5 K/UL (4.8-10.8) H Red Blood Count 3.18 M/UL (4.70-6.10) L Hemoglobin 7.8 G/DL (14.2-18.0) L Hematocrit 25.7 % (42.0-52.0) L Mean Corpuscular Volume 81 FL (80-99) Mean Corpuscular Hemoglobin 24.5 PG (27.0-31.0) L Mean Corpuscular Hemoglobin Concent 30.3 G/DL (32.0-36.0) L Red Cell Distribution Width 16.3 % (11.6-14.8) H Platelet Count 654 K/UL (150-450) H Mean Platelet Volume 4.3 FL (6.5-10.1) L Neutrophils (%) (Auto) % (45.0-75.0) Lymphocytes (%) (Auto) % (20.0-45.0) Monocytes (%) (Auto) % (1.0-10.0) Eosinophils (%) (Auto) % (0.0-3.0) Basophils (%) (Auto) % (0.0-2.0) Differential Total Cells Counted 100 Neutrophils % (Manual) 65 % (45-75) Lymphocytes % (Manual) 15 % (20-45) L Monocytes % (Manual) 8 % (1-10) Eosinophils % (Manual) 12 % (0-3) H Basophils % (Manual) 0 % (0-2) Band Neutrophils 0 % (0-8) Platelet Estimate Increased H Platelet Morphology Normal Sodium Level 132 MMOL/L (136-145) L Potassium Level 3.9 MMOL/L (3.5-5.1) Chloride Level 98 MMOL/L (98-107) Carbon Dioxide Level 26 MMOL/L (21-32) Anion Gap 8 mmol/L (5-15) Blood Urea Nitrogen 8 mg/dL (7-18) Creatinine 0.4 MG/DL (0.55-1.30) L Estimat Glomerular Filtration Rate > 60 mL/min (>60) Glucose Level 90 MG/DL (74-106) Calcium Level 8.7 MG/DL (8.5-10.1) Phosphorus Level 3.3 MG/DL (2.5-4.9) Magnesium Level 1.6 MG/DL (1.8-2.4) L Total Bilirubin 0.2 MG/DL (0.2-1.0) Aspartate Amino Transf (AST/SGOT) 33 U/L (15-37) Alanine Aminotransferase (ALT/SGPT) 75 U/L (12-78) Alkaline Phosphatase 80 U/L (46-116) Total Protein 7.4 G/DL (6.4-8.2) Albumin 1.9 G/DL (3.4-5.0) L Globulin 5.5 g/dL Albumin/Globulin Ratio 0.3 (1.0-2.7) L Vancomycin Level Trough 5.0 ug/mL (5.0-12.0) Current Medications Medications (Trade) Dose Ordered Sig/Efraín Route PRN Reason Start Time Stop Time Status Last Admin Dose Admin Acetaminophen (Tylenol) 650 mg Q4H PRN ORAL fever 08/07/18 22:45 09/06/18 22:44 Acetaminophen/ Hydrocodone Bitart ([place] 5/325) 1 tab Q4H PRN ORAL Moderate Pain (Pain Scale 4-6) 08/08/18 10:30 08/15/18 10:29 08/10/18 20:24 Chlorhexidine Gluconate (Joaquina-Hex 2%) 1 applic DAILY@2000 TOPIC 08/09/18 20:00 09/08/18 19:59 08/10/18 20:23 Dextrose (Dextrose 50%) 25 ml Q30M PRN IV Hypoglycemia 08/07/18 22:45 09/06/18 22:44 Dextrose (Dextrose 50%) 50 ml Q30M PRN IV Hypoglycemia 08/07/18 22:45 09/06/18 22:44 Diphenhydramine HCl (Benadryl) 25 mg Q6H PRN ORAL Itching/Pruritis 08/07/18 22:45 09/06/18 22:44 Docusate Sodium (Colace) 100 mg TID ORAL 08/08/18 18:00 09/06/18 23:14 08/11/18 13:48 Ertapenem 1 gm/ Sodium Chloride 55 ml @ 110 mls/hr Q24H IVPB 08/10/18 13:00 08/15/18 12:59 08/10/18 15:11 Fentanyl (Duragesic) 1 patch Q72H TDERMAL 08/09/18 15:00 08/16/18 14:59 08/09/18 16:36 Heparin Sodium (Porcine) (Heparin 5000 units/ml) 5,000 units EVERY 12 HOURS SUBQ 08/07/18 23:00 09/06/18 22:59 08/11/18 08:56 Lorazepam (Ativan 2mg/ml 1ml) 0.5 mg Q4H PRN IV For Anxiety 08/07/18 22:45 08/14/18 22:44 Magnesium Hydroxide (Mom) 30 ml HSPRN PRN ORAL Constipation 08/07/18 22:45 09/06/18 22:44 Mirtazapine (Remeron) 30 mg BEDTIME ORAL 08/08/18 01:45 09/07/18 01:44 08/10/18 20:23 Miscellaneous Medication (fentaNYL Destruction) 1 ea Q72H MISC 08/12/18 15:00 09/11/18 14:59 Morphine Sulfate (Morphine Sulfate) 1 mg Q2H PRN IVP For Pain 08/07/18 22:45 08/14/18 22:44 Morphine Sulfate (Morphine Sulfate) 4 mg Q4H PRN IVP Severe Pain (Pain Scale 7-10) 08/07/18 22:45 08/14/18 22:44 08/08/18 03:30 Naloxone HCl (Narcan) 0.1 mg PRN IV RASS of 3 or 4 08/09/18 15:00 09/08/18 14:59 Nitroglycerin (Ntg) 0.4 mg Q5M X 3 DOSES PRN SL Prn Chest Pain 08/07/18 22:45 09/06/18 22:44 Ondansetron HCl (Zofran) 4 mg Q6H PRN IVP Nausea & Vomiting 08/08/18 05:00 09/07/18 04:59 Pantoprazole (Protonix) 40 mg DAILY ORAL 08/08/18 09:00 09/07/18 08:59 08/11/18 08:54 Potassium Chloride (K-Dur) 40 meq DAILY ORAL 08/09/18 09:00 09/08/18 08:59 08/11/18 08:54 Temazepam (Restoril) 15 mg HSPRN PRN ORAL Insomnia 08/07/18 22:45 08/14/18 22:44 Vancomycin HCl (Vanco rx to dose) 1 ea DAILY PRN MISC Per rx protocol 08/09/18 17:45 09/08/18 17:44 Vancomycin/Sodium Chloride 250 ml @ 166.667 mls/hr Q12H IVPB 08/11/18 10:00 08/16/18 09:59 08/11/18 09:53 ASSESSMENT AND RECOMMENDATIONS # Anemia of chronic disease due to underlying chronic medical issues, multifactorial. --> Anemia w/u has been reviewed. Ferritin at 784. --> No evidence of hemolysis is noted, peripheral smear has been reviewed. --> Hgb goal >7. Transfuse prn. --> Epogen or iron at this time is not particularly indicated --> If unable to determine source, will need bone marrow biopsy # Leukocytosis. Likely related to underlying infection, sepsis, decub ulcer. --> Peripheral has been ordered, results are pending --> Medications have been reviewed --> Imaging has been reviewed, reveals suspect small left pleural effusion/ thickening. --> Blood cultures and urine cultures are pending. --> has been started on abx, empiric treatment # Thrombocytosis - likely related to reactive process (and/or underlying infection) --> Continue to monitor for improvement --> Trend CBC as needed --> If continues to be elevated, consider to send for NANCY-2 --> Smear reviewed and no abnormalities noted. *Under manual differential # Dehydration. IVF prn. --> Monitor urine output # Malnutrition. Mets lung cancer s/p chemo / radiation --> overall poor prognosis --> poor appetite --> Nutrition is following, appreciate recs # L decub hip ulcer. stage 4. On presentation foul odor, purulent drainage around unstable eschar cap. --> Can be noted to be stage from around eschar cap 5cm x 5cm x 1cm deep with 3mm tunneling anterior superior aspect --> S/P debridement performed at bedside and wound cleaned # Sepsis. GREATLY APPRECIATE CONSULTATION. Sp Pereyra MD Aug 11, 2018 14:18
[2018-08-11 16:00] VITALS: BP 126/84
--- NOTE | 2018-08-11 17:09 | Cardiology Report ---
APPROVED REPORT EKG Measurement Heart [id number] Sinus tachycardia with premature atrial complexes Minimal voltage criteria for LVH, may be normal variant Septal infarct, age undetermined Abnormal ECG
--- NOTE | 2018-08-11 17:51 | Infectious Diseases Prog Note ---
Assessment/Plan Assessment/Plan Assessment: Infected L hip decubitus ulcer c/w Osteomyelitis -08/07 SP I+D of necrotic of L stage IV Hip decubitus ulcer ; cx ESBL K.pna ( I Zosyn; S Ertapenem) -OR findings: The left hip wound was identified to be 5 cm x 5 cm with unknown depth, but unstable eschar cap and very foul smelling with some purulent exudate noted in the open borders to be deep down to the at the least down past subcutaneous tissue of the left ischial tuberosity. Periwound edema and cellulitis was identified. the eschar cap and necrotic tissue were dissected out down to healthy viable tissue. The wound was noted to be 1 centimeter deep down to the ischial tuberosity with exposed muscle, tendon and bone. There were some tunneling in the anterior superior aspect identified. -ESR 106, CRP 18.8 Afebrile Leukocytosis, recurrent, now post-op metastatic Lung CA to bone and brain -on palliative chemo (last, few weeks ago) -S/p RT to brain (last, few months ago) bedbound status S/p PICC line 08/10 Plan: -Continue Ertapenem #2/ for ESBL K.pna OM -ok to d/c on this regimen -weekly CBC and CMP -D.C empiric IV Vancomycin #3 -08/10 SP IV Zosyn #4 -08/07 SP IV Vancomycin x1 -f/u cx -Monitor CBC/CMP, temperatures -wound care -Sx f/u Thank you for this consultation. Will continue to follow along with you. Discussed with RN, patient;s and Dr Parada. Subjective Allergies: Coded Allergies: No Known Allergies (Unverified , 08/07/18) Subjective afebrile WBC stable at 12 Objective Vital Signs Last 24 Hour Vital Signs Date Time Temp Pulse Resp B/P (MAP) Pulse Ox O2 Delivery O2 Flow Rate FiO2 08/11/18 16:00 97.5 102 21 126/84 (98) 94 08/11/18 15:09 99 08/11/18 12:00 98.2 95 19 122/71 (88) 95 08/11/18 11:57 95 08/11/18 09:00 Room Air 08/11/18 08:00 98.0 109 21 132/71 (91) 95 08/11/18 07:58 109 08/11/18 04:00 98.0 90 19 114/70 (85) 96 08/11/18 04:00 106 08/11/18 00:00 112 08/10/18 21:00 Room Air 08/10/18 20:00 97.4 104 20 159/100 (119) 96 08/10/18 20:00 118 Height (Feet): 5 Height (Inches): 8.00 Weight (Pounds): 124 Objective General Appearance: no apparent distress, alert Lines, tubes and drains: peripheral HEENT: mucous membranes moist Neck: normal inspection Respiratory/Chest: normal breath sounds, no respiratory distress, no accessory muscle use Cardiovascular/Chest: tachycardia Abdomen: normal bowel sounds, non tender, soft, no organomegaly, no mass Extremities: no calf tenderness, normal capillary refill, no edema, no cyanosis , other Skin Exam: other - stage 4 left hip decubitus ulcer / stage 1 sacral decubitus Neurologic: alert, responsive Laboratory Tests Test 08/11/18 05:15 08/11/18 08:20 White Blood Count 12.5 K/UL (4.8-10.8) H Red Blood Count 3.18 M/UL (4.70-6.10) L Hemoglobin 7.8 G/DL (14.2-18.0) L Hematocrit 25.7 % (42.0-52.0) L Mean Corpuscular Volume 81 FL (80-99) Mean Corpuscular Hemoglobin 24.5 PG (27.0-31.0) L Mean Corpuscular Hemoglobin Concent 30.3 G/DL (32.0-36.0) L Red Cell Distribution Width 16.3 % (11.6-14.8) H Platelet Count 654 K/UL (150-450) H Mean Platelet Volume 4.3 FL (6.5-10.1) L Neutrophils (%) (Auto) % (45.0-75.0) Lymphocytes (%) (Auto) % (20.0-45.0) Monocytes (%) (Auto) % (1.0-10.0) Eosinophils (%) (Auto) % (0.0-3.0) Basophils (%) (Auto) % (0.0-2.0) Differential Total Cells Counted 100 Neutrophils % (Manual) 65 % (45-75) Lymphocytes % (Manual) 15 % (20-45) L Monocytes % (Manual) 8 % (1-10) Eosinophils % (Manual) 12 % (0-3) H Basophils % (Manual) 0 % (0-2) Band Neutrophils 0 % (0-8) Platelet Estimate Increased H Platelet Morphology Normal Sodium Level 132 MMOL/L (136-145) L Potassium Level 3.9 MMOL/L (3.5-5.1) Chloride Level 98 MMOL/L (98-107) Carbon Dioxide Level 26 MMOL/L (21-32) Anion Gap 8 mmol/L (5-15) Blood Urea Nitrogen 8 mg/dL (7-18) Creatinine 0.4 MG/DL (0.55-1.30) L Estimat Glomerular Filtration Rate > 60 mL/min (>60) Glucose Level 90 MG/DL (74-106) Calcium Level 8.7 MG/DL (8.5-10.1) Phosphorus Level 3.3 MG/DL (2.5-4.9) Magnesium Level 1.6 MG/DL (1.8-2.4) L Total Bilirubin 0.2 MG/DL (0.2-1.0) Aspartate Amino Transf (AST/SGOT) 33 U/L (15-37) Alanine Aminotransferase (ALT/SGPT) 75 U/L (12-78) Alkaline Phosphatase 80 U/L (46-116) Total Protein 7.4 G/DL (6.4-8.2) Albumin 1.9 G/DL (3.4-5.0) L Globulin 5.5 g/dL Albumin/Globulin Ratio 0.3 (1.0-2.7) L Vancomycin Level Trough 5.0 ug/mL (5.0-12.0) Current Medications Medications (Trade) Dose Ordered Sig/Efraín Route PRN Reason Start Time Stop Time Status Last Admin Dose Admin Acetaminophen (Tylenol) 650 mg Q4H PRN ORAL fever 08/07/18 22:45 09/06/18 22:44 Acetaminophen/ Hydrocodone Bitart ([place] 5/325) 1 tab Q4H PRN ORAL Moderate Pain (Pain Scale 4-6) 08/08/18 10:30 08/15/18 10:29 08/10/18 20:24 Chlorhexidine Gluconate (Joaquina-Hex 2%) 1 applic DAILY@2000 TOPIC 08/09/18 20:00 09/08/18 19:59 08/10/18 20:23 Dextrose (Dextrose 50%) 25 ml Q30M PRN IV Hypoglycemia 08/07/18 22:45 09/06/18 22:44 Dextrose (Dextrose 50%) 50 ml Q30M PRN IV Hypoglycemia 08/07/18 22:45 09/06/18 22:44 Diphenhydramine HCl (Benadryl) 25 mg Q6H PRN ORAL Itching/Pruritis 08/07/18 22:45 09/06/18 22:44 Docusate Sodium (Colace) 100 mg TID ORAL 08/08/18 18:00 09/06/18 23:14 08/11/18 13:48 Ertapenem 1 gm/ Sodium Chloride 55 ml @ 110 mls/hr Q24H IVPB 08/10/18 13:00 08/15/18 12:59 08/11/18 14:12 Fentanyl (Duragesic) 1 patch Q72H TDERMAL 08/09/18 15:00 08/16/18 14:59 08/09/18 16:36 Heparin Sodium (Porcine) (Heparin 5000 units/ml) 5,000 units EVERY 12 HOURS SUBQ 08/07/18 23:00 09/06/18 22:59 08/11/18 08:56 Lorazepam (Ativan 2mg/ml 1ml) 0.5 mg Q4H PRN IV For Anxiety 08/07/18 22:45 08/14/18 22:44 Magnesium Hydroxide (Mom) 30 ml HSPRN PRN ORAL Constipation 08/07/18 22:45 09/06/18 22:44 Mirtazapine (Remeron) 30 mg BEDTIME ORAL 08/08/18 01:45 09/07/18 01:44 08/10/18 20:23 Miscellaneous Medication (fentaNYL Destruction) 1 ea Q72H MISC 08/12/18 15:00 09/11/18 14:59 Morphine Sulfate (Morphine Sulfate) 1 mg Q2H PRN IVP For Pain 08/07/18 22:45 08/14/18 22:44 Morphine Sulfate (Morphine Sulfate) 4 mg Q4H PRN IVP Severe Pain (Pain Scale 7-10) 08/07/18 22:45 08/14/18 22:44 08/08/18 03:30 Naloxone HCl (Narcan) 0.1 mg PRN IV RASS of 3 or 4 08/09/18 15:00 09/08/18 14:59 Nitroglycerin (Ntg) 0.4 mg Q5M X 3 DOSES PRN SL Prn Chest Pain 08/07/18 22:45 09/06/18 22:44 Ondansetron HCl (Zofran) 4 mg Q6H PRN IVP Nausea & Vomiting 08/08/18 05:00 09/07/18 04:59 Pantoprazole (Protonix) 40 mg DAILY ORAL 08/08/18 09:00 09/07/18 08:59 08/11/18 08:54 Potassium Chloride (K-Dur) 40 meq DAILY ORAL 08/09/18 09:00 09/08/18 08:59 08/11/18 08:54 Temazepam (Restoril) 15 mg HSPRN PRN ORAL Insomnia 08/07/18 22:45 08/14/18 22:44 Vancomycin HCl (Vanco rx to dose) 1 ea DAILY PRN MISC Per rx protocol 08/09/18 17:45 09/08/18 17:44 Vancomycin/Sodium Chloride 250 ml @ 166.667 mls/hr Q12H IVPB 08/11/18 10:00 08/16/18 09:59 08/11/18 09:53 Malissa Barraza M.D. Aug 11, 2018 17:51
[2018-08-11 20:00] VITALS: BP 129/70
[2018-08-11] MEDS: Dyna-Hex 2% Top Sol 2oz TOPIC SCH (21:42)
[2018-08-12] VITALS: BP 130/61
--- NOTE | 2018-08-12 06:53 | General Progress Note ---
Assessment/Plan Status: stable Assessment/Plan # Anemia of chronic disease due to underlying chronic medical issues, multifactorial. --> Anemia w/u has been reviewed. Ferritin at 784. --> No evidence of hemolysis is noted, peripheral smear has been reviewed. --> Hgb goal >7. Transfuse prn. --> Epogen or iron at this time is not particularly indicated --> If unable to determine source, will need bone marrow biopsy # Leukocytosis. Likely related to underlying infection, sepsis, decub ulcer. Wound culture is positive --> Peripheral has been reviewed, no blasts --> Medications have been reviewed --> Imaging has been reviewed, reveals suspect small left pleural effusion/ thickening. --> Blood culture negative, wound culture positive --> has been started on abx, empiric treatment # Thrombocytosis - likely related to underlying infection --> Continue to monitor for improvement --> Trend CBC as needed --> If continues to be elevated, consider to send for NANCY-2 --> Smear reviewed and no abnormalities noted. *Under manual differential # Dehydration. IVF prn. --> Monitor urine output # Malnutrition. Mets lung cancer s/p chemo / radiation --> overall poor prognosis --> poor appetite --> Nutrition is following, appreciate recs # L decub hip ulcer. stage 4. On presentation foul odor, purulent drainage around unstable eschar cap. --> Can be noted to be stage from around eschar cap 5cm x 5cm x 1cm deep with 3mm tunneling anterior superior aspect --> S/P debridement performed at bedside and wound cleaned # Sepsis. GREATLY APPRECIATE CONSULTATION. Subjective Date patient seen: Aug 12, 2018 Hematologic/Lymphatic: Reports: anemia Allergies: Coded Allergies: No Known Allergies (Unverified , 08/07/18) All Systems: reviewed and negative except above Subjective Pt resting in bed. at bedside. No acute events. H/H stable. VS stable. Objective Last 24 Hour Vital Signs Date Time Temp Pulse Resp B/P (MAP) Pulse Ox O2 Delivery O2 Flow Rate FiO2 08/12/18 04:00 108 08/12/18 00:00 104 08/12/18 00:00 98.1 81 19 130/61 (84) 95 08/11/18 21:00 Room Air 08/11/18 20:00 98.1 97 18 129/70 (89) 100 11/28/18 20:00 96 08/11/18 16:00 97.5 102 21 126/84 (98) 94 08/11/18 15:09 99 08/11/18 12:00 98.2 95 19 122/71 (88) 95 08/11/18 11:57 95 08/11/18 09:00 Room Air 08/11/18 08:00 98.0 109 21 132/71 (91) 95 08/11/18 07:58 109 Intake and Output 08/11/18 08/12/18 18:59 06:59 Intake Total 850 ml Output Total 900 ml Balance -50 ml Intake Oral 800 ml IV Total 50 ml Output Urine Total 900 ml Laboratory Tests 08/11/18 08:20: Vancomycin Level Trough 5.0 Height (Feet): 5 Height (Inches): 8.00 Weight (Pounds): 124 Objective General Appearance: no apparent distress, alert Lines, tubes and drains: peripheral HEENT: mucous membranes moist Neck: normal inspection Respiratory/Chest: normal breath sounds, no respiratory distress, no accessory muscle use Cardiovascular/Chest: tachycardia Abdomen: normal bowel sounds, non tender, soft, no organomegaly, no mass Extremities: no calf tenderness, normal capillary refill, no edema, no cyanosis , other Skin Exam: other - stage 4 left hip decubitus ulcer / stage 1 sacral decubitus Neurologic: alert, responsive Sp Pereyra MD Aug 12, 2018 06:53
[2018-08-12 08:00] VITALS: BP 120/54
[2018-08-12 08:44] LABS: BASOPHILS % (AUTO) 0.5 % (0.0-2.0); EOSINOPHILS % (AUTO) 1.8 % (0.0-3.0); HEMATOCRIT 35.5 % (42.0-52.0); HEMOGLOBIN 11.6 G/DL (14.2-18.0); LYMPHOCYTES % (AUTO) 9.6 % (20.0-45.0); MEAN CORPUSCULAR VOLUME 82 FL (80-99); MONOCYTES % (AUTO) 5.2 % (1.0-10.0); PLATELET COUNT 675 K/UL (150-450); RED BLOOD COUNT 4.31 M/UL (4.70-6.10); RED CELL DISTRIBUTION WIDTH 15.8 % (11.6-14.8); WHITE BLOOD COUNT 14.4 K/UL (4.8-10.8)
[2018-08-12 09:01] LABS: ANION GAP 9 mmol/L (5-15); BLOOD UREA NITROGEN 10 mg/dL (7-18); CALCIUM 8.6 MG/DL (8.5-10.1); CARBON DIOXIDE 25 MMOL/L (21-32); CHLORIDE 98 MMOL/L (98-107); CREATININE 0.5 MG/DL (0.55-1.30); POTASSIUM 4.2 MMOL/L (3.5-5.1); SODIUM 132 MMOL/L (136-145)
[2018-08-12] MEDS: Docusate 100mg cap ORAL SCH (09:14)
[2018-08-12] MEDS: Heparin 5000 units/ml inj SUBQ SCH (09:17)
[2018-08-12] MEDS ORDERED: INVANZ1 G1 IVPB (11:16)
[2018-08-12 12:02] VITALS: BP 141/78
--- NOTE | 2018-08-12 12:26 | Pulmonology Progress Note ---
Assessment/Plan Problems: (1) Severe protein-calorie malnutrition (2) Lung cancer metastatic to brain (3) Sepsis (4) Decubitus ulcer of left hip, stage 4 Assessment/Plan d/w extensively about prognosis no new complains f/u cultures, on Imipenem ID note reviewed and appreciated wound care pt's will need emotional support. dvt prophylaxis. respiratory treatment Subjective ROS Limited/Unobtainable: No Constitutional: Reports: no symptoms HEENT: Repors: no symptoms Allergies: Coded Allergies: No Known Allergies (Unverified , 08/07/18) Objective Last 24 Hour Vital Signs Date Time Temp Pulse Resp B/P (MAP) Pulse Ox O2 Delivery O2 Flow Rate FiO2 08/12/18 12:02 98.0 106 19 141/78 (99) 98 08/12/18 09:00 Room Air 08/12/18 08:00 97.9 83 20 120/54 (76) 95 08/12/18 04:00 108 08/12/18 00:00 104 08/12/18 00:00 98.1 81 19 130/61 (84) 95 08/11/18 21:00 Room Air 08/11/18 20:00 98.1 97 18 129/70 (89) 100 08/11/18 20:00 96 08/11/18 16:00 97.5 102 21 126/84 (98) 94 08/11/18 15:09 99 Intake and Output 08/11/18 08/12/18 18:59 06:59 Intake Total 850 ml 120 ml Output Total 900 ml 1375 ml Balance -50 ml -1255 ml Intake Oral 800 ml 120 ml IV Total 50 ml Output Urine Total 900 ml 1375 ml General Appearance: WD/WN HEENT: normocephalic, atraumatic Respiratory/Chest: chest wall non-tender, lungs clear Abdomen: normal bowel sounds, soft, non tender Skin: no rash Laboratory Tests 08/12/18 08:25: White Blood Count 14.4H, Red Blood Count 4.31L, Hemoglobin 11.6#L, Hematocrit 35.5#L, Mean Corpuscular Volume 82, Mean Corpuscular Hemoglobin 26.8L, Mean Corpuscular Hemoglobin Concent 32.6, Red Cell Distribution Width 15.8H, Platelet Count 675H, Mean Platelet Volume 4.5L, Neutrophils (%) (Auto) 83.0H, Lymphocytes (%) (Auto) 9.6L, Monocytes (%) (Auto) 5.2, Eosinophils (%) (Auto) 1.8, Basophils (%) (Auto) 0.5, Sodium Level 132L, Potassium Level 4.2, Chloride Level 98, Carbon Dioxide Level 25, Anion Gap 9, Blood Urea Nitrogen 10, Creatinine 0.5L, Estimat Glomerular Filtration Rate > 60, Glucose Level 178H, Calcium Level 8.6 Rosa Maria Palumbo MD Aug 12, 2018 12:25
--- NOTE | 2018-08-12 12:47 | Infectious Diseases Prog Note ---
Assessment/Plan Assessment/Plan Assessment: Infected L hip decubitus ulcer c/w Osteomyelitis -08/07 SP I+D of necrotic of L stage IV Hip decubitus ulcer ; cx ESBL K.pna ( I Zosyn; S Ertapenem) -OR findings: The left hip wound was identified to be 5 cm x 5 cm with unknown depth, but unstable eschar cap and very foul smelling with some purulent exudate noted in the open borders to be deep down to the at the least down past subcutaneous tissue of the left ischial tuberosity. Periwound edema and cellulitis was identified. the eschar cap and necrotic tissue were dissected out down to healthy viable tissue. The wound was noted to be 1 centimeter deep down to the ischial tuberosity with exposed muscle, tendon and bone. There were some tunneling in the anterior superior aspect identified. -ESR 106, CRP 18.8 Afebrile Leukocytosis, recurrent, now post-op metastatic Lung CA to bone and brain -on palliative chemo (last, few weeks ago) -S/p RT to brain (last, few months ago) bedbound status S/p PICC line 08/10 Plan: -Continue Ertapenem # for ESBL K.pna OM -ok to d/c on this regimen -weekly CBC and CMP -08/11 SP IV Vancomycin #3 -08/10 SP IV Zosyn #4 -08/07 SP IV Vancomycin x1 -f/u cx -Monitor CBC/CMP, temperatures -wound care -Sx f/u Thank you for this consultation. Will continue to follow along with you. Discussed with RN, patient;s and briefcase sewer. Subjective Allergies: Coded Allergies: No Known Allergies (Unverified , 08/07/18) Subjective afebrile wbc 14 for discharge today BcxNTD Objective Vital Signs Last 24 Hour Vital Signs Date Time Temp Pulse Resp B/P (MAP) Pulse Ox O2 Delivery O2 Flow Rate FiO2 08/12/18 12:02 98.0 106 19 141/78 (99) 98 08/12/18 09:00 Room Air 08/12/18 08:00 97.9 83 20 120/54 (76) 95 08/12/18 04:00 108 08/12/18 00:00 104 08/12/18 00:00 98.1 81 19 130/61 (84) 95 08/11/18 21:00 Room Air 08/11/18 20:00 98.1 97 18 129/70 (89) 100 08/11/18 20:00 96 08/11/18 16:00 97.5 102 21 126/84 (98) 94 08/11/18 15:09 99 Height (Feet): 5 Height (Inches): 8.00 Weight (Pounds): 121 Objective General Appearance: no apparent distress, alert Lines, tubes and drains: peripheral HEENT: mucous membranes moist Neck: normal inspection Respiratory/Chest: normal breath sounds, no respiratory distress, no accessory muscle use Cardiovascular/Chest: tachycardia Abdomen: normal bowel sounds, non tender, soft, no organomegaly, no mass Extremities: no calf tenderness, normal capillary refill, no edema, no cyanosis , other Skin Exam: other - stage 4 left hip decubitus ulcer / stage 1 sacral decubitus Neurologic: alert, responsive Laboratory Tests Test 08/12/18 08:25 White Blood Count 14.4 K/UL (4.8-10.8) H Red Blood Count 4.31 M/UL (4.70-6.10) L Hemoglobin 11.6 G/DL (14.2-18.0) #L Hematocrit 35.5 % (42.0-52.0) #L Mean Corpuscular Volume 82 FL (80-99) Mean Corpuscular Hemoglobin 26.8 PG (27.0-31.0) L Mean Corpuscular Hemoglobin Concent 32.6 G/DL (32.0-36.0) Red Cell Distribution Width 15.8 % (11.6-14.8) H Platelet Count 675 K/UL (150-450) H Mean Platelet Volume 4.5 FL (6.5-10.1) L Neutrophils (%) (Auto) 83.0 % (45.0-75.0) H Lymphocytes (%) (Auto) 9.6 % (20.0-45.0) L Monocytes (%) (Auto) 5.2 % (1.0-10.0) Eosinophils (%) (Auto) 1.8 % (0.0-3.0) Basophils (%) (Auto) 0.5 % (0.0-2.0) Sodium Level 132 MMOL/L (136-145) L Potassium Level 4.2 MMOL/L (3.5-5.1) Chloride Level 98 MMOL/L (98-107) Carbon Dioxide Level 25 MMOL/L (21-32) Anion Gap 9 mmol/L (5-15) Blood Urea Nitrogen 10 mg/dL (7-18) Creatinine 0.5 MG/DL (0.55-1.30) L Estimat Glomerular Filtration Rate > 60 mL/min (>60) Glucose Level 178 MG/DL (74-106) H Calcium Level 8.6 MG/DL (8.5-10.1) Malissa Barraza M.D. Aug 12, 2018 12:47
--- NOTE | 2018-08-12 13:01 | General Progress Note ---
Assessment/Plan Problem List: (1) Decubitus ulcer of left hip, stage 4 ICD Codes: L89.224 - Pressure ulcer of left hip, stage 4 SNOMED: 382482766, 422160823 (2) Dehydration ICD Codes: E86.0 - Dehydration SNOMED: 65569832 (3) Malnutrition ICD Codes: E46 - Unspecified protein-calorie malnutrition SNOMED: 61820974 Qualifiers: Qualified Codes: E43 - Unspecified severe protein-calorie malnutrition (4) Lung cancer metastatic to brain ICD Codes: C34.90 - Malignant neoplasm of unspecified part of unspecified bronchus or lung; C79.31 - Secondary malignant neoplasm of brain SNOMED: 35591736, 75366488 (5) Severe protein-calorie malnutrition ICD Codes: E43 - Unspecified severe protein-calorie malnutrition SNOMED: 955129167 Status: stable Assessment/Plan transfuse DC hydrate- antibiotics per ID PICC wound care DC Subjective Date patient seen: Aug 12, 2018 Time patient seen: 08:30 ROS Limited/Unobtainable: No Constitutional: Reports: weakness Allergies: Coded Allergies: No Known Allergies (Unverified , 08/07/18) Objective Last 24 Hour Vital Signs Date Time Temp Pulse Resp B/P (MAP) Pulse Ox O2 Delivery O2 Flow Rate FiO2 08/12/18 12:02 98.0 106 19 141/78 (99) 98 08/12/18 09:00 Room Air 08/12/18 08:00 97.9 83 20 120/54 (76) 95 08/12/18 04:00 108 08/12/18 00:00 104 08/12/18 00:00 98.1 81 19 130/61 (84) 95 08/11/18 21:00 Room Air 08/11/18 20:00 98.1 97 18 129/70 (89) 100 08/11/18 20:00 96 08/11/18 16:00 97.5 102 21 126/84 (98) 94 08/11/18 15:09 99 Intake and Output 08/11/18 08/12/18 18:59 06:59 Intake Total 850 ml 120 ml Output Total 900 ml 1375 ml Balance -50 ml -1255 ml Intake Oral 800 ml 120 ml IV Total 50 ml Output Urine Total 900 ml 1375 ml Laboratory Tests 08/12/18 08:25: White Blood Count 14.4H, Red Blood Count 4.31L, Hemoglobin 11.6#L, Hematocrit 35.5#L, Mean Corpuscular Volume 82, Mean Corpuscular Hemoglobin 26.8L, Mean Corpuscular Hemoglobin Concent 32.6, Red Cell Distribution Width 15.8H, Platelet Count 675H, Mean Platelet Volume 4.5L, Neutrophils (%) (Auto) 83.0H, Lymphocytes (%) (Auto) 9.6L, Monocytes (%) (Auto) 5.2, Eosinophils (%) (Auto) 1.8, Basophils (%) (Auto) 0.5, Sodium Level 132L, Potassium Level 4.2, Chloride Level 98, Carbon Dioxide Level 25, Anion Gap 9, Blood Urea Nitrogen 10, Creatinine 0.5L, Estimat Glomerular Filtration Rate > 60, Glucose Level 178H, Calcium Level 8.6 Height (Feet): 5 Height (Inches): 8.00 Weight (Pounds): 121 General Appearance: no apparent distress Objective no change Hema Smyth MD Aug 12, 2018 13:01
[2018-08-12] MEDS ORDERED: fentaNYL Destruction MISC SCH (15:00)
--- NOTE | 2018-08-13 13:03 | Discharge Summary ---
Discharge Summary Discharge Summary _ DATE OF ADMISSION: 08/07/2018 DATE OF DISCHARGE: 08/12/2018 CONSULTANTS: Dr. Hema Palumbo BRIEF HOSPITAL COURSE: Patient is a 68-year-old, male with generalized malaise, fatigue and worsening left hip wound. He has medical history significant for diabetes, hypertension and heart disease. Patient has history of metastatic lung CA with previous chemotherapy and radiation. Last radiation was a month ago and last chemotherapy was few weeks prior to admission. According to patient's , patient was first diagnosed with lung CA after surgical biopsy was performed, and was then found to have metastases to the brain and bone. Currently patient is living at home with the . He began to develop left hip wound a month ago and had worsened for the last week. He was given oral antibiotics with no improvement. On evaluation at ED,he was tachycardic. He was pancultured. Workup showed elevated WBC. ESR and CRP were elevated. Chest x-ray showed effusion, mass on the left. He was given pain control. He was admitted for evaluation of hip wound, possible osteomyelitis. Surgical evaluation was done. Patient has stage IV left hip decubitus ulcer with purulent drainage around unstageable eschar cap. An excisional debridement of necrotic nonviable tissue was performed at bedside and wound was cleansed. OR findings showed unstable eschar with foul smelling and purulent exudate. Wound was noted to be 1 cm deep down to the ischial tuberosity with exposed muscle, tendon and bone. There was tunneling noted in the anterior superior aspect. Wound care was rendered. He was placed on air mattress with frequent repositioning and offloading. Patient had poor intake and poor appetite. He was given IV fluid hydration. He was given nutritional consult. ID was consulted he was given empiric IV Zosyn and IV vancomycin. Patient decubitus ulcer was consistent with osteomyelitis, would need 6 weeks of antibiotic treatment. Wound Culture grew ESBL Klebsiella pneumoniae, Zosyn was switched to ertapenem. There was a drop in hemoglobin to 7.8, hematocrit 25. He was given 2 units packed RBC blood transfusion. Anemia work-up showed ferritin level 784. Folate normal. Anemia was secondary to chronic disease. No need for iron or venofer. Blood count stabilized post transfusion. Patient would need prolonged antibiotic treatment. PICC line was inserted. Patient was discharged to SNF. FINAL DIAGNOSES: Sepsis Infected left hip stage IV decubitus ulcer consistent with osteomyelitis, present on admission Lung CA with mets to brain and bone Severe protein calorie malnutrition Drop in hemoglobin requiring blood transfusion Thombocytosis Anemia of chronic disease Dehydration s/p excisional debridement of wound 08/07/18 DISPOSITION: Patient was discharged to [facility]. DISCHARGE MEDICATIONS: Refer to Discharge Medication List. I have been assigned to dictate discharge summary on this account, and I was not involved in the patient's management. Kathya Zhang NP Aug 13, 2018 13:03
== END 2018-08-12 12:15 | DRG 853 ==
LOC: EDBEDREQ 21:43 → EMR 22:00 → 2E 22:16 → EDBEDREQ 22:18
PROC: 0JBM0ZZ Excision of Left Upper Leg Subcutaneous Tissue and Fascia, Open Approach (ICD-10-PCS; principal; 2018-08-07)
PROC: 02HV33Z Insertion of Infusion Device into Superior Vena Cava, Percutaneous Approach (ICD-10-PCS; principal; 2018-08-07)
PROC: B518ZZA Fluoroscopy of Superior Vena Cava, Guidance (ICD-10-PCS; principal; 2018-08-07)
PROC: 30233N1 Transfusion of Nonautologous Red Blood Cells into Peripheral Vein, Percutaneous Approach (ICD-10-PCS; 2018-08-11)
DX: A41.9 Sepsis, unspecified organism (principal); L89.224 Pressure ulcer of left hip, stage 4; E43 Unspecified severe protein-calorie malnutrition; L03.116 Cellulitis of left lower limb; C34.90 Malignant neoplasm of unspecified part of unspecified bronchus or lung; C79.51 Secondary malignant neoplasm of bone; C79.31 Secondary malignant neoplasm of brain; Z68.1 Body mass index [BMI] 19.9 or less, adult; M86.68 Other chronic osteomyelitis, other site; R71.0 Precipitous drop in hematocrit; E86.0 Dehydration; L89.151 Pressure ulcer of sacral region, stage 1; D47.3 Essential (hemorrhagic) thrombocythemia
CPT/HCPCS: 36415; 36569; 71045; 76937; 80048; 80053; 80061; 80202; 81001; 82140; 82550; 82607; 82728; 82746; 82977; 83036; 83540; 83550; 83605; 83735; 83880; 84100; 84443; 84484; 84550; 85007; 85025; 85610; 85651; 85730; 86140; 86850; 86900; 86901; 86920; 87040; 87070; 87181; 87205; 93005; 96361; 96365; 96368; 99285; J2405; J8499

== ENCOUNTER 2018-09-21 17:29 | Inpatient (IN) | payer MEDICARE ==
[~2018-09-21] VITALS: Ht 162.6 cm; Wt 47.6 kg
[~2018-09-21 17:29] MED LIST: ALPHAGAN P5 M2 OP; AMLODIPINE BESY10 MG ORAL; AMOX TR-K CLV1 EAC2 ORAL; ASPIR 8181 MG ORAL; BACTRIM DS TAB1 EAC1 ORAL; BETHANECHOL CHL25 MG ORAL; BRAIN MIGHT-DH1 EACH PO; CALCIUM 250+D1 EACH PO; CALCIUM 500 +1 EAC3 PO; CATAPRES0.1 MG ORAL; CENTRUM SILVER1 EAC2 PO; DONEPEZIL HCL10 MG ORAL; FENTANYL1 EAC3 TDERMAL; HYDRALAZINE HC100 MG ORAL; HYDROCODON-ACE1 EA13 ORAL; INVANZ1 G1 IVPB; LISINOPRIL5 MG ORAL; METOPROLOL TAR100 M1 ORAL; MIRALAX17 G2 ORAL; MIRTAZAPINE30 MG ORAL; MIRTAZAPINE7.5 MG ORAL; PROSCAR5 MG ORAL; SENOKOT8.6 MG PO; STARLIX60 MG ORAL; TAMSULOSIN HCL0.4 MG ORAL; VITAMIN D250000 UNI1 ORAL; ZINC SULFATE220 M1 ORAL
[2018-09-21 17:32] VITALS: BP 110/57
--- NOTE | 2018-09-21 17:32 | NUR ---
ED Nurse Note: Pt brought in by JULIAN from [facility] c/o ALOC x 30 min per statement. prior to arrival pt has Left foot to knee gangrene. pt has open wound with pus present on left groin. pt is at bedside. beside vitals 138 HR, BP 148/71, 89% face mask on 10 L
[2018-09-21] MEDS ORDERED: ASPIR 8181 MG ORAL (17:51)
[2018-09-21] MEDS ORDERED: LUMIGAN2.5 ML BOTH EYES (17:53)
[2018-09-21] MEDS ORDERED: VIBRAMYCIN100 MG ORAL (17:57)
[2018-09-21] MEDS ORDERED: DOCUSATE SODIU100 MG ORAL (17:58)
[2018-09-21] MEDS ORDERED: Morphine Sulfate 4mg/ml Inj (IV/IM USE ONLY) IVP ONE (18:00)
[2018-09-21] MEDS ORDERED: EPOGEN20000 UNI1 SUBQ (18:01)
[2018-09-21 18:03] LABS: HEMATOCRIT 23.5 % (42.0-52.0); HEMOGLOBIN 7.3 G/DL (14.2-18.0); MEAN CORPUSCULAR VOLUME 79 FL (80-99); PLATELET COUNT 480 K/UL (150-450); RED BLOOD COUNT 2.98 M/UL (4.70-6.10); RED CELL DISTRIBUTION WIDTH 18.1 % (11.6-14.8); WHITE BLOOD COUNT 21.3 K/UL (4.8-10.8)
[2018-09-21] MEDS ORDERED: FENTANYL1 EAC2 TDERMAL (18:04)
[2018-09-21] MEDS ORDERED: LOVENOX10 M1 SUBQ (18:06)
[2018-09-21] MEDS ORDERED: MULTIVITAMINS1 EAC8 ORAL (18:09)
[2018-09-21] MEDS ORDERED: NORCO 10-325 T1 EACH ORAL ×3 (18:13→18:14)
[2018-09-21] MEDS ORDERED: Piperacillin/Tazobactam 3.375 GM in NS 110 ML IVPB ONE (18:15)
[2018-09-21] MEDS ORDERED: Vancomycin 1 GM in NS 275 ML IVPB ONE (18:15)
[2018-09-21] MEDS ORDERED: NORCO 5-325 TA1 EACH ORAL (18:15)
[2018-09-21] MEDS ORDERED: PRO-STAT LIQUID30 ML ORAL (18:16)
[2018-09-21] MEDS ORDERED: MIRTAZAPINE15 M3 ORAL (18:17)
[2018-09-21] MEDS ORDERED: VITAMIN C500 M1 ORAL (18:17)
[2018-09-21] MEDS ORDERED: ZINC SULFATE220 M1 ORAL (18:18)
[2018-09-21 18:24] LABS: ALANINE AMINOTRANSFERASE 191 U/L (12-78); ALBUMIN 1.4 G/DL (3.4-5.0); ALBUMIN/GLOBULIN RATIO 0.3 (1.0-2.7); ALKALINE PHOSPHATASE 174 U/L (46-116); ANION GAP 12 mmol/L (5-15); ASPARTATE AMINO TRANSFERASE 147 U/L (15-37); BILIRUBIN,TOTAL 0.3 MG/DL (0.2-1.0); BLOOD UREA NITROGEN 22 mg/dL (7-18); CALCIUM 8.9 MG/DL (8.5-10.1); CARBON DIOXIDE 24 MMOL/L (21-32); CHLORIDE 107 MMOL/L (98-107); CREATINE KINASE 54 U/L (26-308); CREATININE 0.8 MG/DL (0.55-1.30); SODIUM 143 MMOL/L (136-145)
--- NOTE | 2018-09-21 18:26 | Emergency Room Report ---
History of Present Illness General Chief Complaint: Altered Level of Consciousness Source: Family Member, Medical Record, EMS Present Illness HPI 68-year-old male, with history of lung cancer, metastasis to bones as well as brain, DNR/DNI, left lower leg gangrene, presenting with decompensation. Patient lives at home is taking care of by . says that she has seen many surgeons, only conservative therapy for now, no surgeons recommend doing an amputation due to patient's condition. Patient has been having a fentanyl patch, has had increased pain. Says that the left leg gangrene has been worsening the last 2 weeks. Patient only moaning incompressible sounds, not really answering any questions to provide further history Allergies: Coded Allergies: No Known Allergies (Unverified , 08/07/18) Patient History Past Medical History: see triage record Past Surgical History: none Pertinent Family History: none Reviewed Nursing Documentation: PMH: Agreed; PSxH: Agreed Nursing Documentation-PMH Hx Cardiac Problems: No - BPH, anemia, CAD, PVD Hx Hypertension: Yes Hx Diabetes: Yes - DM2 Hx Cancer: Yes - Lung CA w/ metastasis to brain and muscle Hx Gastrointestinal Problems: No Hx Neurological Problems: No - dysphagia, generalized weakness Review of Systems All Other Systems: limited - lethargic/not answeting qeustions Physical Exam Vital Signs Date Time Temp Pulse Resp B/P (MAP) Pulse Ox O2 Delivery O2 Flow Rate FiO2 09/21/18 17:22 99.9 120 28 110/57 99 Non-Rebreather 15.0 Sp02 EP Interpretation: abnormal General Appearance: moderate distress, cachetic, lethargic, Chronically Ill Head: normocephalic, atraumatic Eyes: bilateral eye normal inspection, bilateral eye PERRL, bilateral eye EOMI ENT: normal ENT inspection, normal pharynx, normal voice, moist mucus membranes Neck: normal inspection, full range of motion, supple Respiratory: other - Decreased breath sounds bilaterally worse on the left, tachypneic to the 20s Cardiovascular #1: tachycardia Cardiovascular #2: 2+ radial (R), 2+ radial (L) Gastrointestinal: normal inspection, non tender, soft Genitourinary: no CVA tenderness Musculoskeletal: other - Left lower extremity with gangrene, erythema, all tender to palpation, tenderness up to mid thigh, also left groin with open wound with purulent drainage Neurologic: other - lethargic and not answering questions Psychiatric: other Skin: normal inspection, normal color, no rash, warm/dry, well hydrated, normal turgor Procedures Critical Care Time Critical Care Time 40 minutes of critical care time performed in order to assess and manage the high probability of imminent of lifethreatening deterioration secondary to cardiovascular function function excludes all billable procedures Medical Decision Making Diagnostic Impression: Primary Impression: Decubitus ulcer of left hip, stage 4 Additional Impressions: Gangrene of lower extremity Sepsis DNR (do not resuscitate) ER Course 68-year-old male with lethargy, left groin open wound, left leg gangrene DDX: Infected wound, left lower [place] any gangrene, sepsis Plan: Obtain labs, ua, EKG, CXR, IV antibiotics Patient is DNR/DNI, no surgical intervention for the left lower leg gangrene per as well as PCP Dr Salse ER course: Patient given morphine, fluids, IV antibiotics Disposition: Patient is to be admitted to telemetry D/W hospitalist Dr Sales./ Víctor aware of pt Please note that this Emergency Department Report was dictated using [employer] mac technology software, occasionally this can lead to erroneous entry secondary to interpretation by the dictation equipment. EKG Diagnostic Results EP Interpretation: Yes Rate: 139 Rhythm: NSR ST Segments: No acute changes , however poor quality ASA given to patient: No Rhythm Strip EP Interpretation: Yes Rate: 130 Rhythm: NSR, no PVCs, no ectopy Chest X-ray CXR: Ordered: Yes 1 view Indication: Shortness of breath EP interpretation: Yes Interpretation: X-ray is extremely rotated patient is contracted, left lung obscured however possible pleural effusion versus pneumonia versus lung mass Impression: X-ray is extremely rotated patient is contracted, left lung obscured however possible pleural effusion versus pneumonia versus mass Electronically signed by Rishabh Beal MD Laboratory Tests Test 09/21/18 17:45 09/21/18 19:08 White Blood Count 21.3 K/UL (4.8-10.8) H Red Blood Count 2.98 M/UL (4.70-6.10) L Hemoglobin 7.3 G/DL (14.2-18.0) L Hematocrit 23.5 % (42.0-52.0) L Mean Corpuscular Volume 79 FL (80-99) L Mean Corpuscular Hemoglobin 24.4 PG (27.0-31.0) L Mean Corpuscular Hemoglobin Concent 31.0 G/DL (32.0-36.0) L Red Cell Distribution Width 18.1 % (11.6-14.8) H Platelet Count 480 K/UL (150-450) H Mean Platelet Volume 4.9 FL (6.5-10.1) L Neutrophils (%) (Auto) % (45.0-75.0) Lymphocytes (%) (Auto) % (20.0-45.0) Monocytes (%) (Auto) % (1.0-10.0) Eosinophils (%) (Auto) % (0.0-3.0) Basophils (%) (Auto) % (0.0-2.0) Differential Total Cells Counted 100 Neutrophils % (Manual) 82 % (45-75) H Lymphocytes % (Manual) 10 % (20-45) L Monocytes % (Manual) 5 % (1-10) Eosinophils % (Manual) 0 % (0-3) Basophils % (Manual) 0 % (0-2) Band Neutrophils 3 % (0-8) Platelet Estimate Increased H Platelet Morphology Normal Hypochromasia 2+ Anisocytosis 1+ Sodium Level 143 MMOL/L (136-145) Potassium Level 4.0 MMOL/L (3.5-5.1) Chloride Level 107 MMOL/L (98-107) Carbon Dioxide Level 24 MMOL/L (21-32) Anion Gap 12 mmol/L (5-15) Blood Urea Nitrogen 22 mg/dL (7-18) H Creatinine 0.8 MG/DL (0.55-1.30) Estimate Glomerular Filtration Rate > 60 mL/min (>60) Glucose Level 222 MG/DL (74-106) H Lactic Acid Level 3.70 mmol/L (0.4-2.0) H Pending Calcium Level 8.9 MG/DL (8.5-10.1) Total Bilirubin 0.3 MG/DL (0.2-1.0) Aspartate Amino Transferase (AST) 147 U/L (15-37) H Alanine Aminotransferase (ALT) 191 U/L (12-78) H Alkaline Phosphatase 174 U/L (46-116) H Total Creatine Kinase 54 U/L (26-308) Troponin I 0.000 ng/mL (0.000-0.056) Total Protein 6.1 G/DL (6.4-8.2) L Albumin 1.4 G/DL (3.4-5.0) L Globulin 4.7 g/dL Albumin/Globulin Ratio 0.3 (1.0-2.7) L Last Vital Signs Date Time Temp Pulse Resp B/P (MAP) Pulse Ox O2 Delivery O2 Flow Rate FiO2 09/21/18 17:22 99.9 120 28 110/57 99 Non-Rebreather 15.0 Disposition: ADMITTED INPATIENT Condition: Critical Rishabh Beal M.D. Sep 21, 2018 18:26
--- NOTE | 2018-09-21 19:11 | NUR ---
HAND-OFF: Report given to PRAVIN Jean-Baptiste.
--- NOTE | 2018-09-21 19:11 | NUR ---
ED Nurse Note: lactic reflux send. endorsed to Reyes Jean-Baptiste to follow up on result.
[2018-09-21 19:24] VITALS: BP 112/61
[2018-09-21 20:19] VITALS: BP 110/70
--- NOTE | 2018-09-21 20:32 | NUR ---
ED Nurse Note: PT is transfered to [facility], and report given to Alisa COSTELLO. pt vital signs, condition and status has been reported to receving RN and ERMD prior to DC. pt has transfered with all belongings.
[2018-09-21 20:40] LABS: APPEARANCE,URINE CLEAR; BILIRUBIN, URINE NEGATIVE (NEGATIVE); GLUCOSE, URINE (UA) NEGATIVE (NEGATIVE); KETONES,URINE 1+ (NEGATIVE); LEUKOCYTE ESTERASE ,URINE 1+ (NEGATIVE); NITRITE,URINE NEGATIVE (NEGATIVE); PH,URINE 6 (4.5-8.0); PROTEIN,URINE 2+ (NEGATIVE); UROBILINOGEN,URINE 1 MG/DL (0.0-1.0)
[2018-09-21 20:42] LABS: COLOR,URINE YELLOW
[2018-09-21 20:45] VITALS: BP 104/67
--- NOTE | 2018-09-21 20:45 | NUR ---
NURSE NOTES: NURSE NOTES: Patient arrived via [place] with [place] RN. Patient is on a simple mask at 15L and O2 saturating at 98%. Sponge bath given, wounds are dressed, patient repositioned. Left message for Dr. Sales for admitting orders. is at bedside. Will initiate plan of care.
[2018-09-21] MEDS ORDERED: Norco 5mg/325mg tab ORAL PRN (22:45)
[2018-09-21] MEDS ORDERED: HYDROcodone/Acetamin 10/325 tab ORAL PRN ×2 (22:45)
[2018-09-21] MEDS ORDERED: Heparin 25,000u/D5W 500ml (VTE/AF) IV SCH (23:45)
[2018-09-21] MEDS ORDERED: Heparin 5000 units/ml inj IV SCH (23:45)
[2018-09-22] VITALS (7 sets, daily range): BP systolic 98–123; BP diastolic 51–75
[2018-09-22 06:37] LABS: HEMATOCRIT 21.9 % (42.0-52.0); MEAN CORPUSCULAR VOLUME 80 FL (80-99); PLATELET COUNT 456 K/UL (150-450); RED BLOOD COUNT 2.74 M/UL (4.70-6.10); RED CELL DISTRIBUTION WIDTH 17.8 % (11.6-14.8); WHITE BLOOD COUNT 21.6 K/UL (4.8-10.8)
[2018-09-22 06:59] LABS: HEMOGLOBIN 6.7 G/DL (14.2-18.0)
[2018-09-22] MEDS ORDERED: Heparin 25,000u/D5W 500ml (VTE/AF) IV SCH (07:00)
[2018-09-22 07:04] LABS: ANION GAP 10 mmol/L (5-15); BLOOD UREA NITROGEN 17 mg/dL (7-18); CALCIUM 8.9 MG/DL (8.5-10.1); CARBON DIOXIDE 25 MMOL/L (21-32); CHLORIDE 111 MMOL/L (98-107); CREATININE 0.4 MG/DL (0.55-1.30); POTASSIUM 3.4 MMOL/L (3.5-5.1); SODIUM 146 MMOL/L (136-145)
[2018-09-22] MEDS ORDERED: Heparin 5000 units/ml inj IV SCH (07:15)
--- NOTE | 2018-09-22 07:15 | NUR ---
HAND-OFF: Report given to PRAVIN Swartz and PRAVIN Davies.
--- NOTE | 2018-09-22 07:25 | NUR ---
NURSE NOTES: Left message for Dr. Sales regarding patient's hemoglobin of 6.7 (charge nurses aware). Also if MD would like to continue with enoxaparin subQ injection since patient is already receiving the heparin drip. awaiting call back. Endorsed to PRAVIN Swartz and PRAVIN Davies
--- NOTE | 2018-09-22 07:30 | NUR ---
NURSE NOTES: Received report from PRAVIN Cuellar. Patient is seen in bed. alert responsive to tactile stimuli. No signs and symptom of pain at this time. Currently on 15L/min of oxygen via simple mask. No respiratory distress is noted. IV site to right wrist 18 G and left wrist 22G is intact. Currently on Heparin drip of 22/u/kg/hr. Condom catheter is present and urine is flowing. Bed is in lowest position. Call light is within reach. Michelle by bedside. Will continue to monitor.
--- NOTE | 2018-09-22 08:00 | NUR ---
NURSE NOTES: Informed Dr Sales in regards to hgb level/ abnormal lab values. Awaiting for call back at this time.
[2018-09-22] MEDS ORDERED: Multivitamin w/Minerals tab ORAL SCH (09:00)
[2018-09-22] MEDS ORDERED: Aspirin EC 81mg tab ORAL SCH (09:00)
[2018-09-22] MEDS ORDERED: Enoxaparin 60mg Inj SUBQ SCH (09:00)
[2018-09-22] MEDS ORDERED: Zinc Sulfate 220mg cap ORAL SCH (09:00)
[2018-09-22] MEDS ORDERED: Tamsulosin 0.4mg cap ORAL SCH (09:00)
[2018-09-22] MEDS ORDERED: Docusate 100mg cap ORAL SCH (09:00)
--- NOTE | 2018-09-22 10:55 | NUR ---
RD ASSESSMENT & RECOMMENDATIONS SEE CARE ACTIVITY FOR COMPLETE ASSESSMENT DAILY ESTIMATED NEEDS: Needs based on Severely underweight, cancer, wounds/ 45kg 35-40 kcals/kg 5912-7392 total kcals 1.5-2.0 g protein/kg 68-90 g total protein 25-35 mL/kg 4800-3570 total fluid mLs NUTRITION DIAGNOSIS: * Increased kcal/prot intake R/T wound healing, catabolic dx, for wt gain as evidenced by pt w/ L hip stage 4 wound + multiple additional wounds w/ pending eval, hx of metastatic lung cancer, with mets to bone and brain, and severely underweight w/ BMI 115.1, @ 64% IBW. CURRENT DIET: Regular / puree w/ NTL PO DIET RECOMMENDATIONS: Liberalized REGULAR diet/ texture per [employer] RECREATION [employer]IST ADDITIONAL RECOMMENDATIONS: * Ensure Enlive 1 bottle BID in b/w meals ( -> monitor po intake/ need for TID * Wound care: IRON BID + MVI x1 + Vit C 500mg BID -> pt on ZnSO4 * WEEKLY WEIGHTS on calibrated bed scale * Monitor lytes, replete as needed * Monitor lytes, BG / need for dietary restriction (phos 5.0, BG 110-222)
--- NOTE | 2018-09-22 11:30 | Diagnostic Imaging Report ---
Indication: Shortness of breath Technique: One view of the chest Comparison: 08/07/2018 Findings: Interim marked left lung volume loss. There is extensive pleural thickening on the left. There is apparent abrupt cut off of the left mainstem bronchus. The right lung appears hyperinflated. It is clear. There are surgical clips and surgical amarilys again demonstrated in the left hilum and perihilar region Impression: Marked left lung volume loss. Abrupt cut off of the left mainstem bronchus. Suspect volume loss is due to combination of atelectasis and pleural fluid and/or tumor. Correlate with clinical findings Compensatory hyperinflation of the right lung
--- NOTE | 2018-09-22 11:36 | NUR ---
CASE MANAGEMENT: REVIEW 68/M [facility] CC: AMS SI: ALOC T 99.9 HR 120 RR 28 BP 110/57 SAT 99% NON-REBREATHER FIO2 89 WBC 21.3 H/H 7.3/23.5 BUN 22 GLUCOSE 222 IS: NS IVF BOLUS X1 MORPHINE IV X1 ZOSYN IV X1 INTERQUAL CRITERIA MET: PATIENT ADMITTED TO STEP DOWN UNIT 09/21/2018 DCP: PATIENT IS FROM [facility]
[2018-09-22] MEDS ORDERED: Cefepime HCl 1 GM in D5W 55 ML IVPB SCH (11:45)
[2018-09-22] MEDS ORDERED: Amikacin Rx to dose MISC PRN ×2 (11:45→14:00)
--- NOTE | 2018-09-22 11:53 | NUR ---
NURSE NOTES: NO NEW ORDER FOR ABN LABS. DR SAENZ MADE AWARE OF BLOOD CULTURE RESULT. SEEN AT THE BEDSIDE. ST SEEN THE PATIENT. TOLERATING VENTURI 14L AT 50% FIO2. NO SIGNS OF DISTRESS. WILL CONTINUE TO MONITOR.
[2018-09-22] MEDS ORDERED: Dakin's 0.125% Soln (Quarter Strength) 16oz TOPIC SCH (12:00)
--- NOTE | 2018-09-22 12:08 | Consultation ---
History of Present Illness General Date patient seen: Sep 22, 2018 Chief Complaint: Altered Level of Consciousness Present Illness HPI 68 year old male with hx of metastatic lung cancer, dry gangrene of left leg, cachectic, bed bound, group home resident, brought in for increased respiratory effort and worsening of wounds. Allergies: Coded Allergies: No Known Allergies (Unverified , 08/07/18) Medication History Scheduled Amino Acids/Protein Hydrolys (Pro-Stat Liquid), 30 ML ORAL TWICE A DAY, ( Reported) Ascorbic Acid* (Vitamin C*), 500 MG ORAL DAILY, (Reported) Aspirin* (Aspir 81*), 81 MG ORAL DAILY, (Reported) Bimatoprost (Lumigan), 1 DROP BOTH EYES BEDTIME, (Reported) Brimonidine Tartrate (Alphagan P), 5 ML OP BID, (Reported) Clonidine Hcl* (Catapres*), 0.1 MG ORAL EVERY 4 HOURS, (Reported) Docusate Sodium* (Docusate Sodium*), 100 MG ORAL TWICE A DAY, (Reported) Doxycycline Hyclate* (Vibramycin*), 100 MG ORAL EVERY 12 HOURS, (Reported) Enoxaparin* (Lovenox*), 60 MG SUBQ EVERY 12 HOURS, (Reported) Epoetin Jose A (Epogen), 5,000 UNIT SUBQ every Mon, Wed, Fri, (Reported) Fentanyl 75MCG Patch* (Fentanyl 75MCG Patch*), 1 PATCH TDERMAL EVERY 72 HOURS, ( Reported) Finasteride* (Proscar*), 5 MG ORAL DAILY, (Reported) Mirtazapine* (Mirtazapine*), 15 MG ORAL BEDTIME, (Reported) Multivitamin With Minerals (Multivitamins With Minerals*), 1 TAB ORAL DAILY, ( Reported) Tamsulosin Hcl (Tamsulosin Hcl*), 0.4 MG ORAL BID, (Reported) Zinc Sulfate (Zinc Sulfate*), 220 MG ORAL DAILY, (Reported) Scheduled PRN Hydrocodone Bit/Acetaminophen 10-325* ([place] 10-325*), 1 TAB ORAL Q4H PRN for Pain Scale (6-10), (Reported) Hydrocodone Bit/Acetaminophen 10-325* ([place] 10-325*), 1 TAB ORAL DAILY PRN for PAIN - 30-45 min prior to tx, (Reported) Hydrocodone Bit/Acetaminophen 5-325* ([place] 5-325*), 1 TAB ORAL Q4H PRN for Moderate Pain (Pain Scale 4-6), (Reported) Patient History Healthcare decision maker ALESSANDRO CARSON Resuscitation status Do Not Resuscitate Advanced Directive on File Past Medical/Surgical History Past Medical/Surgical History: (1) Lung cancer metastatic to brain (2) Gangrene of lower extremity (3) Decubitus ulcer of left hip, stage 4 (4) DNR (do not resuscitate) (5) Severe protein-calorie malnutrition Review of Systems All Other Systems: negative except mentioned in HPI Physical Exam General Appearance: cachetic Lines, tubes and drains: peripheral HEENT: normocephalic, atraumatic Neck: non-tender, normal alignment Respiratory/Chest: chest wall non-tender, rhonchi - left, rhonchi - right Cardiovascular/Chest: normal peripheral pulses, normal rate Abdomen: normal bowel sounds Genitourinary/Rectal: normal rectal exam Last 24 Hour Vital Signs Date Time Temp Pulse Resp B/P (MAP) Pulse Ox O2 Delivery O2 Flow Rate FiO2 09/22/18 08:00 102 09/22/18 08:00 Simple Mask 15.0 09/22/18 08:00 98.1 101 18 98/60 (73) 97 09/22/18 04:07 112 09/22/18 04:00 Simple Mask 15.0 09/22/18 04:00 98.6 110 36 100/51 (67) 99 09/22/18 00:00 98.4 114 36 110/75 (87) 99 09/22/18 00:00 Simple Mask 15.0 09/21/18 23:19 114 09/21/18 20:45 Simple Mask 15.0 09/21/18 20:45 98.2 125 44 104/67 (79) 97 09/21/18 20:33 99.9 100 20 110/70 99 Non-Rebreather 15.0 89 09/21/18 20:19 99.9 100 20 110/70 99 Non-Rebreather 15.0 09/21/18 19:24 99.9 100 20 112/61 99 Non-Rebreather 15.0 09/21/18 17:32 99.9 28 110/57 99 Non-Rebreather 15.0 09/21/18 17:32 120 28 Non-Rebreather 10.0 89 09/21/18 17:22 99.9 120 28 110/57 99 Non-Rebreather 15.0 Intake and Output 09/21/18 09/22/18 18:59 06:59 Intake Total 1095.705 ml Output Total 0 ml Balance 1095.705 ml Intake IV Total 1095.705 ml Output Urine Total 0 ml # Voids 1 Laboratory Tests Test 09/21/18 17:45 09/21/18 19:08 09/21/18 20:02 09/21/18 23:20 White Blood Count 21.3 K/UL (4.8-10.8) H Red Blood Count 2.98 M/UL (4.70-6.10) L Hemoglobin 7.3 G/DL (14.2-18.0) L Hematocrit 23.5 % (42.0-52.0) L Mean Corpuscular Volume 79 FL (80-99) L Mean Corpuscular Hemoglobin 24.4 PG (27.0-31.0) L Mean Corpuscular Hemoglobin Concent 31.0 G/DL (32.0-36.0) L Red Cell Distribution Width 18.1 % (11.6-14.8) H Platelet Count 480 K/UL (150-450) H Mean Platelet Volume 4.9 FL (6.5-10.1) L Neutrophils (%) (Auto) % (45.0-75.0) Lymphocytes (%) (Auto) % (20.0-45.0) Monocytes (%) (Auto) % (1.0-10.0) Eosinophils (%) (Auto) % (0.0-3.0) Basophils (%) (Auto) % (0.0-2.0) Differential Total Cells Counted 100 Neutrophils % (Manual) 82 % (45-75) H Lymphocytes % (Manual) 10 % (20-45) L Monocytes % (Manual) 5 % (1-10) Eosinophils % (Manual) 0 % (0-3) Basophils % (Manual) 0 % (0-2) Band Neutrophils 3 % (0-8) Platelet Estimate Increased H Platelet Morphology Normal Hypochromasia 2+ Anisocytosis 1+ Sodium Level 143 MMOL/L (136-145) Potassium Level 4.0 MMOL/L (3.5-5.1) Chloride Level 107 MMOL/L (98-107) Carbon Dioxide Level 24 MMOL/L (21-32) Anion Gap 12 mmol/L (5-15) Blood Urea Nitrogen 22 mg/dL (7-18) H Creatinine 0.8 MG/DL (0.55-1.30) Estimat Glomerular Filtration Rate > 60 mL/min (>60) Glucose Level 222 MG/DL (74-106) H Lactic Acid Level 3.70 mmol/L (0.4-2.0) H 2.80 mmol/L (0.66-2.22) H Calcium Level 8.9 MG/DL (8.5-10.1) Total Bilirubin 0.3 MG/DL (0.2-1.0) Aspartate Amino Transf (AST/SGOT) 147 U/L (15-37) H Alanine Aminotransferase (ALT/SGPT) 191 U/L (12-78) H Alkaline Phosphatase 174 U/L (46-116) H Total Creatine Kinase 54 U/L (26-308) Troponin I 0.000 ng/mL (0.000-0.056) Total Protein 6.1 G/DL (6.4-8.2) L Albumin 1.4 G/DL (3.4-5.0) L Globulin 4.7 g/dL Albumin/Globulin Ratio 0.3 (1.0-2.7) L Urine Color Yellow Urine Appearance Clear Urine pH 6 (4.5-8.0) Urine Specific [place] 1.005 (1.005-1.035) Urine Protein 2+ (NEGATIVE) H Urine Glucose (UA) Negative (NEGATIVE) Urine Ketones 1+ (NEGATIVE) H Urine Blood Negative (NEGATIVE) Urine Nitrite Negative (NEGATIVE) Urine Bilirubin Negative (NEGATIVE) Urine Urobilinogen 1 MG/DL (0.0-1.0) H Urine Leukocyte Esterase 1+ (NEGATIVE) H Urine RBC 0-2 /HPF (0 - 0) H Urine WBC 2-4 /HPF (0 - 0) Urine Squamous Epithelial Cells None /LPF (NONE/OCC) Urine Bacteria Few /HPF (NONE) Activated Partial Thromboplast Time 33 SEC (23-33) Test 09/22/18 06:05 White Blood Count 21.6 K/UL (4.8-10.8) H Red Blood Count 2.74 M/UL (4.70-6.10) L Hemoglobin 6.7 G/DL (14.2-18.0) *L Hematocrit 21.9 % (42.0-52.0) L Mean Corpuscular Volume 80 FL (80-99) Mean Corpuscular Hemoglobin 24.6 PG (27.0-31.0) L Mean Corpuscular Hemoglobin Concent 30.7 G/DL (32.0-36.0) L Red Cell Distribution Width 17.8 % (11.6-14.8) H Platelet Count 456 K/UL (150-450) H Mean Platelet Volume 4.6 FL (6.5-10.1) L Neutrophils (%) (Auto) % (45.0-75.0) Lymphocytes (%) (Auto) % (20.0-45.0) Monocytes (%) (Auto) % (1.0-10.0) Eosinophils (%) (Auto) % (0.0-3.0) Basophils (%) (Auto) % (0.0-2.0) Differential Total Cells Counted 100 Neutrophils % (Manual) 79 % (45-75) H Lymphocytes % (Manual) 6 % (20-45) L Monocytes % (Manual) 6 % (1-10) Eosinophils % (Manual) 0 % (0-3) Basophils % (Manual) 0 % (0-2) Metamyelocytes % 1 % (0-0) H Band Neutrophils 8 % (0-8) Platelet Estimate Increased H Platelet Morphology Normal Hypochromasia 2+ Anisocytosis 1+ Activated Partial Thromboplast Time 40 SEC (23-33) H Sodium Level 146 MMOL/L (136-145) H Potassium Level 3.4 MMOL/L (3.5-5.1) L Chloride Level 111 MMOL/L (98-107) H Carbon Dioxide Level 25 MMOL/L (21-32) Anion Gap 10 mmol/L (5-15) Blood Urea Nitrogen 17 mg/dL (7-18) Creatinine 0.4 MG/DL (0.55-1.30) L Estimat Glomerular Filtration Rate > 60 mL/min (>60) Glucose Level 110 MG/DL (74-106) #H Calcium Level 8.9 MG/DL (8.5-10.1) Phosphorus Level 5.0 MG/DL (2.5-4.9) H Magnesium Level 1.9 MG/DL (1.8-2.4) Microbiology Date/Time Source Procedure Growth Status 09/21/18 17:45 Blood Blood Culture - Preliminary Resulted Height (Feet): 5 Height (Inches): 4.00 Weight (Pounds): 99 Medications Current Medications Medications (Trade) Dose Ordered Sig/Efraín Route PRN Reason Start Time Stop Time Status Last Admin Dose Admin Acetaminophen/ Hydrocodone Bitart ([place] 10/325) 1 tab DAILY PRN ORAL PAIN - 30-45 min prior to tx 09/21/18 22:45 09/28/18 22:44 Acetaminophen/ Hydrocodone Bitart ([place] 10/325) 1 tab Q4H PRN ORAL Pain Scale (6-10) 09/21/18 22:45 09/28/18 22:44 Acetaminophen/ Hydrocodone Bitart ([place] 5/325) 1 tab Q4H PRN ORAL Moderate Pain (Pain Scale 4-6) 09/21/18 22:45 09/28/18 22:44 Aspirin (Ecotrin) 81 mg DAILY ORAL 09/22/18 09:00 10/22/18 08:59 Docusate Sodium (Colace) 100 mg TWICE A DAY ORAL 09/22/18 09:00 10/22/18 08:59 Doxycycline Monohydrate (Vibramycin) 100 mg EVERY 12 HOURS ORAL 09/22/18 09:00 09/29/18 08:59 Fentanyl (Duragesic) 1 patch EVERY 72 HOURS TDERMAL 09/22/18 12:00 09/29/18 11:59 Finasteride (Proscar) 5 mg DAILY ORAL 09/22/18 09:00 10/22/18 08:59 Heparin Sodium/ Dextrose 500 ml @ 19.962 mls/ hr ADJUST PER PROTOCOL IV 09/22/18 07:00 10/22/18 06:59 09/22/18 07:19 Miscellaneous Medication (fentaNYL Destruction) 1 ea Q72H MISC 09/25/18 11:59 10/22/18 11:58 Multivitamins Therapeutic (Therapeutic Multivitamin) 1 ea DAILY ORAL 09/22/18 09:00 10/22/18 08:59 Tamsulosin HCl (Flomax) 0.4 mg BID ORAL 09/22/18 09:00 10/22/18 08:59 Zinc Sulfate (Zinc Sulfate) 220 mg DAILY ORAL 09/22/18 09:00 10/22/18 08:59 Assessment/Plan Problem List: (1) End of life care ICD Codes: Z51.5 - Encounter for palliative care SNOMED: 519097793, 538468561 (2) Acute respiratory failure ICD Codes: J96.00 - Acute respiratory failure, unspecified whether with hypoxia or hypercapnia SNOMED: 10851499 (3) At high risk for aspiration ICD Codes: Z91.89 - Other specified personal risk factors, not elsewhere classified SNOMED: 938238562 (4) Lung cancer metastatic to brain ICD Codes: C34.90 - Malignant neoplasm of unspecified part of unspecified bronchus or lung; C79.31 - Secondary malignant neoplasm of brain SNOMED: 97160235, 23310840 (5) Gangrene of lower extremity ICD Codes: I96 - Gangrene, not elsewhere classified SNOMED: 163949222, 025692417 (6) Decubitus ulcer of left hip, stage 4 ICD Codes: L89.224 - Pressure ulcer of left hip, stage 4 SNOMED: 675725129, 295535576 (7) DNR (do not resuscitate) ICD Codes: Z66 - Do not resuscitate SNOMED: 104748322 (8) Severe protein-calorie malnutrition ICD Codes: E43 - Unspecified severe protein-calorie malnutrition SNOMED: 524502551 (9) Sepsis ICD Codes: A41.9 - Sepsis, unspecified organism SNOMED: 20951600 Assessment/Plan pt's is ignorant about the medical condition of the patient pt had increased respiratory rate at 45, refusing iv morphine start abx for GNB in blood wound care symptomatic treatment Rosa Maria Palumbo MD Sep 22, 2018 12:08
[2018-09-22] MEDS ORDERED: Albuterol/Ipratropium 3ml neb HHN PRN ×2 (12:15→13:00)
--- NOTE | 2018-09-22 12:30 | NUR ---
TRANSFER TO FLOOR: Patient transferred to [facility], [facility]. Report given to PRAVIN Murillo. No belongings. at the bedside. Tolerating Venturi mask 14L at 50% FIO2. No signs of distress as of the moment.
[2018-09-22] MEDS: Dakin's 0.125% Soln (Quarter Strength) 16oz TOPIC SCH (13:01)
--- NOTE | 2018-09-22 14:14 | NUR ---
ST NOTE: BEDSIDE SWALLOW EVAL RECEIVED BEDSIDE SWALLOW EVAL ORDER CHART REVIEWED PRIOR THE EVALUATION PT IS A 68-YEAR-OLD MALE WHO WAS ADMITTED FOR AMS. DYSPHAGIA RISK FACTORS: LUNG CA, METASTASIS TO BONES AND BRAIN, H/O DYSPHAGIA, DMII, L LOWER LEG GANGRENE, H/O ALCOHOLIC PER CXR:Marked left lung volume loss. Abrupt cut off of the left mainstem bronchus. Suspect volume loss is due to combination of atelectasis and pleural fluid and/or tumor. Correlate with clinical findings Compensatory hyperinflation of the right lung PLOF: PT RESIDES AT [facility]. PER CHART, PT WAS ON PUREE W/NECTAR THICK LIQUIDS PRIOR ADMISSION. PER PT'S , VIDEOSWALLOW STUDY WAS DONE AT [facility] FEW WEEKS AGO AND PT PASSED ON PUREE WITH NECTAR THICK LIQUIDS. PER PT'S POLST: DNR/DNI, NO ARTIFICIAL MEANS OF NUTRITION, INCLUDING FEEDING TUBES. CURRENT STATUS: PT SEEN AT BEDSIDE IN LATE AM. NOT ALERT, EYE OPENED, SHALLOW BREATHING, RR: 36-45s, WITH SIMPLE MASK(15L), PULSE: 101-125, PT'S IS AT BEDSIDE, PER , PT ATE LUNCH 50% YESTERDAY, HOWEVER, LATE AFTERNOON, PT WAS UNABLE TO TAKE ANY PO. USED WARM CLOTH TO INCREASE PT'S ALERTNESS, PT CURRENTLY IS NONVERBAL, NOT FOLLOW DIRECTIONS. COMPLETED ORAL CARE WITH MOIST SPONGE, PT DID NOT DEMONSTRATE DRY SWALLOW RESPONSE WHEN REQUESTED. 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 PT IS VERY HIGH RISK FOR ASPIRATION COMPOUNDED OF PT'S CURRENT RESPIRATORY STATUS(36 TO 45s). EXPLAINED IN DETAIL RE: HIGH RISK FOR ASPIRATION AND ASPIRATION PNA TO PT'S : PT IS AT HIGH RISK FOR ASPIRATION AND NOT SAFE FOR ANY PO INTAKE. RECOMMENDATIONS: 1. KEEP PT ON NPO 2. RE-ASSESS PT'S SWALLOWING FUNCTION AND VIDEOSWALLOW STUDY IF NEEDED. 3. CONSIDER COMFORT MEASURE ONLY D/W , DR. SAENZ, DR. MACEDO AND DR. GREEN. D/W THE STAFF. POSTED NPO SIGN.
--- NOTE | 2018-09-22 14:24 | NUR ---
Received pt from PRAVIN PEREZ at 1300. pt is confused and oriented x1. pt has venturi mask. pt has iv access R WRIST 18G HL. All wounds treatment done with la, wound nurse. Dr leggett and Dr marroquin are aware about lab results and contain K 3.4, HB 6.7 and RR 28, No new order. pt's is on bed side all the time. pt is NPO as order. all needs attended, bed is locked and is in the lowest position call light within easy reach. will continue to monitor..
[2018-09-22] MEDS ORDERED: AMIKACIN IV SCH (15:00)
[2018-09-22] MEDS ORDERED: NS IV SCH (15:00)
--- NOTE | 2018-09-22 15:58 | Consultation ---
History of Present Illness General Date patient seen: Sep 22, 2018 Chief Complaint: Altered Level of Consciousness Present Illness HPI 68-year-old male with known history of lung cancer with metastasis to bones as well as brain who is well known to me from prior admission presented decompensating. per report since last admission he was in rehab and readmitted to [facility]. He had developed a left left extremity arterial clot resulting in loss of his left lower extremity from mid thigh down (currently dry gangrene). Has a worsening left groin/inguinal wound. severely cachectic. less responsive and hear the end of life. Surgery called to evaluate and assist with care and management. patient seen, chart reviewed, patient examined, discussed care with . Allergies: Coded Allergies: No Known Allergies (Unverified , 08/07/18) Medication History Scheduled Amino Acids/Protein Hydrolys (Pro-Stat Liquid), 30 ML ORAL TWICE A DAY, ( Reported) Ascorbic Acid* (Vitamin C*), 500 MG ORAL DAILY, (Reported) Aspirin* (Aspir 81*), 81 MG ORAL DAILY, (Reported) Bimatoprost (Lumigan), 1 DROP BOTH EYES BEDTIME, (Reported) Brimonidine Tartrate (Alphagan P), 5 ML OP BID, (Reported) Clonidine Hcl* (Catapres*), 0.1 MG ORAL EVERY 4 HOURS, (Reported) Docusate Sodium* (Docusate Sodium*), 100 MG ORAL TWICE A DAY, (Reported) Doxycycline Hyclate* (Vibramycin*), 100 MG ORAL EVERY 12 HOURS, (Reported) Enoxaparin* (Lovenox*), 60 MG SUBQ EVERY 12 HOURS, (Reported) Epoetin Jose A (Epogen), 5,000 UNIT SUBQ every Mon, Wed, Fri, (Reported) Fentanyl 75MCG Patch* (Fentanyl 75MCG Patch*), 1 PATCH TDERMAL EVERY 72 HOURS, ( Reported) Finasteride* (Proscar*), 5 MG ORAL DAILY, (Reported) Mirtazapine* (Mirtazapine*), 15 MG ORAL BEDTIME, (Reported) Multivitamin With Minerals (Multivitamins With Minerals*), 1 TAB ORAL DAILY, ( Reported) Tamsulosin Hcl (Tamsulosin Hcl*), 0.4 MG ORAL BID, (Reported) Zinc Sulfate (Zinc Sulfate*), 220 MG ORAL DAILY, (Reported) Scheduled PRN Hydrocodone Bit/Acetaminophen 10-325* ([place] 10-325*), 1 TAB ORAL Q4H PRN for Pain Scale (6-10), (Reported) Hydrocodone Bit/Acetaminophen 10-325* ([place] 10-325*), 1 TAB ORAL DAILY PRN for PAIN - 30-45 min prior to tx, (Reported) Hydrocodone Bit/Acetaminophen 5-325* ([place] 5-325*), 1 TAB ORAL Q4H PRN for Moderate Pain (Pain Scale 4-6), (Reported) Patient History Limited by: medical condition History Provided By: Family Member, Medical Record, PMD Healthcare decision maker ALESSANDRO CARSON Resuscitation status Do Not Resuscitate Advanced Directive on File Past Medical/Surgical History Past Medical/Surgical History: (1) Dehydration (2) Stage 1 skin ulcer of sacral region (3) Malnutrition (4) Severe protein-calorie malnutrition (5) DNR (do not resuscitate) (6) Decubitus ulcer of left hip, stage 4 (7) Gangrene of lower extremity (8) Lung cancer metastatic to brain (9) Acute respiratory failure (10) Sepsis (11) End of life care (12) At high risk for aspiration Review of Systems ROS Narrative cannot obtain Physical Exam General Appearance: mild distress, cachetic, thin Lines, tubes and drains: other HEENT: atraumatic Neck: normal inspection Respiratory/Chest: decreased breath sounds, accessory muscle use Cardiovascular/Chest: tachycardia Abdomen: soft, distended Extremities: other Skin Exam: other Last 24 Hour Vital Signs Date Time Temp Pulse Resp B/P (MAP) Pulse Ox O2 Delivery O2 Flow Rate FiO2 09/22/18 13:00 97.7 107 45 111/62 (78) 97 09/22/18 12:00 98.2 106 45 109/58 (75) 95 09/22/18 12:00 Simple Mask 15.0 09/22/18 08:00 102 09/22/18 08:00 Simple Mask 15.0 09/22/18 08:00 98.1 101 40 98/60 (73) 97 09/22/18 04:07 112 09/22/18 04:00 Simple Mask 15.0 09/22/18 04:00 98.6 110 36 100/51 (67) 99 09/22/18 00:00 98.4 114 36 110/75 (87) 99 09/22/18 00:00 Simple Mask 15.0 09/21/18 23:19 114 09/21/18 20:45 Simple Mask 15.0 09/21/18 20:45 98.2 125 44 104/67 (79) 97 09/21/18 20:33 99.9 100 20 110/70 99 Non-Rebreather 15.0 89 09/21/18 20:19 99.9 100 20 110/70 99 Non-Rebreather 15.0 09/21/18 19:24 99.9 100 20 112/61 99 Non-Rebreather 15.0 09/21/18 17:32 99.9 28 110/57 99 Non-Rebreather 15.0 09/21/18 17:32 120 28 Non-Rebreather 10.0 89 09/21/18 17:22 99.9 120 28 110/57 99 Non-Rebreather 15.0 Intake and Output 09/21/18 09/22/18 19:00 07:00 Intake Total 1095.705 ml Output Total 0 ml Balance 1095.705 ml Intake IV Total 1095.705 ml Output Urine Total 0 ml # Voids 1 Laboratory Tests Test 09/21/18 17:45 09/21/18 19:08 09/21/18 20:02 09/21/18 23:20 White Blood Count 21.3 K/UL (4.8-10.8) H Red Blood Count 2.98 M/UL (4.70-6.10) L Hemoglobin 7.3 G/DL (14.2-18.0) L Hematocrit 23.5 % (42.0-52.0) L Mean Corpuscular Volume 79 FL (80-99) L Mean Corpuscular Hemoglobin 24.4 PG (27.0-31.0) L Mean Corpuscular Hemoglobin Concent 31.0 G/DL (32.0-36.0) L Red Cell Distribution Width 18.1 % (11.6-14.8) H Platelet Count 480 K/UL (150-450) H Mean Platelet Volume 4.9 FL (6.5-10.1) L Neutrophils (%) (Auto) % (45.0-75.0) Lymphocytes (%) (Auto) % (20.0-45.0) Monocytes (%) (Auto) % (1.0-10.0) Eosinophils (%) (Auto) % (0.0-3.0) Basophils (%) (Auto) % (0.0-2.0) Differential Total Cells Counted 100 Neutrophils % (Manual) 82 % (45-75) H Lymphocytes % (Manual) 10 % (20-45) L Monocytes % (Manual) 5 % (1-10) Eosinophils % (Manual) 0 % (0-3) Basophils % (Manual) 0 % (0-2) Band Neutrophils 3 % (0-8) Platelet Estimate Increased H Platelet Morphology Normal Hypochromasia 2+ Anisocytosis 1+ Sodium Level 143 MMOL/L (136-145) Potassium Level 4.0 MMOL/L (3.5-5.1) Chloride Level 107 MMOL/L (98-107) Carbon Dioxide Level 24 MMOL/L (21-32) Anion Gap 12 mmol/L (5-15) Blood Urea Nitrogen 22 mg/dL (7-18) H Creatinine 0.8 MG/DL (0.55-1.30) Estimat Glomerular Filtration Rate > 60 mL/min (>60) Glucose Level 222 MG/DL (74-106) H Lactic Acid Level 3.70 mmol/L (0.4-2.0) H 2.80 mmol/L (0.66-2.22) H Calcium Level 8.9 MG/DL (8.5-10.1) Total Bilirubin 0.3 MG/DL (0.2-1.0) Aspartate Amino Transf (AST/SGOT) 147 U/L (15-37) H Alanine Aminotransferase (ALT/SGPT) 191 U/L (12-78) H Alkaline Phosphatase 174 U/L (46-116) H Total Creatine Kinase 54 U/L (26-308) Troponin I 0.000 ng/mL (0.000-0.056) Total Protein 6.1 G/DL (6.4-8.2) L Albumin 1.4 G/DL (3.4-5.0) L Globulin 4.7 g/dL Albumin/Globulin Ratio 0.3 (1.0-2.7) L Urine Color Yellow Urine Appearance Clear Urine pH 6 (4.5-8.0) Urine Specific [place] 1.005 (1.005-1.035) Urine Protein 2+ (NEGATIVE) H Urine Glucose (UA) Negative (NEGATIVE) Urine Ketones 1+ (NEGATIVE) H Urine Blood Negative (NEGATIVE) Urine Nitrite Negative (NEGATIVE) Urine Bilirubin Negative (NEGATIVE) Urine Urobilinogen 1 MG/DL (0.0-1.0) H Urine Leukocyte Esterase 1+ (NEGATIVE) H Urine RBC 0-2 /HPF (0 - 0) H Urine WBC 2-4 /HPF (0 - 0) Urine Squamous Epithelial Cells None /LPF (NONE/OCC) Urine Bacteria Few /HPF (NONE) Activated Partial Thromboplast Time 33 SEC (23-33) Test 09/22/18 06:05 White Blood Count 21.6 K/UL (4.8-10.8) H Red Blood Count 2.74 M/UL (4.70-6.10) L Hemoglobin 6.7 G/DL (14.2-18.0) *L Hematocrit 21.9 % (42.0-52.0) L Mean Corpuscular Volume 80 FL (80-99) Mean Corpuscular Hemoglobin 24.6 PG (27.0-31.0) L Mean Corpuscular Hemoglobin Concent 30.7 G/DL (32.0-36.0) L Red Cell Distribution Width 17.8 % (11.6-14.8) H Platelet Count 456 K/UL (150-450) H Mean Platelet Volume 4.6 FL (6.5-10.1) L Neutrophils (%) (Auto) % (45.0-75.0) Lymphocytes (%) (Auto) % (20.0-45.0) Monocytes (%) (Auto) % (1.0-10.0) Eosinophils (%) (Auto) % (0.0-3.0) Basophils (%) (Auto) % (0.0-2.0) Differential Total Cells Counted 100 Neutrophils % (Manual) 79 % (45-75) H Lymphocytes % (Manual) 6 % (20-45) L Monocytes % (Manual) 6 % (1-10) Eosinophils % (Manual) 0 % (0-3) Basophils % (Manual) 0 % (0-2) Metamyelocytes % 1 % (0-0) H Band Neutrophils 8 % (0-8) Platelet Estimate Increased H Platelet Morphology Normal Hypochromasia 2+ Anisocytosis 1+ Activated Partial Thromboplast Time 40 SEC (23-33) H Sodium Level 146 MMOL/L (136-145) H Potassium Level 3.4 MMOL/L (3.5-5.1) L Chloride Level 111 MMOL/L (98-107) H Carbon Dioxide Level 25 MMOL/L (21-32) Anion Gap 10 mmol/L (5-15) Blood Urea Nitrogen 17 mg/dL (7-18) Creatinine 0.4 MG/DL (0.55-1.30) L Estimat Glomerular Filtration Rate > 60 mL/min (>60) Glucose Level 110 MG/DL (74-106) #H Calcium Level 8.9 MG/DL (8.5-10.1) Phosphorus Level 5.0 MG/DL (2.5-4.9) H Magnesium Level 1.9 MG/DL (1.8-2.4) Microbiology Date/Time Source Procedure Growth Status 09/21/18 18:00 Blood Blood Culture - Preliminary Resulted 09/21/18 17:45 Blood Blood Culture - Preliminary Resulted Height (Feet): 5 Height (Inches): 4.00 Weight (Pounds): 105 Medications Current Medications Medications (Trade) Dose Ordered Sig/Efraín Route PRN Reason Start Time Stop Time Status Last Admin Dose Admin Albuterol/ Ipratropium (Albuterol/ Ipratropium) 3 ml Q4H PRN HHN Shortness of Breath 09/22/18 13:00 09/27/18 12:59 Amikacin Protocol (Amikacin pharmacy to dose) 1 ea DAILY PRN MISC Per rx protocol 09/22/18 14:00 10/22/18 13:59 Amikacin Sulfate 700 mg/Sodium Chloride 277.8 ml @ 277.8 mls/ hr Q24H IV 09/22/18 15:00 09/29/18 14:59 Cefepime HCl 1 gm/ Dextrose 55 ml @ 110 mls/hr Q24H IVPB 09/23/18 13:30 09/29/18 13:29 Fentanyl (Duragesic) 1 patch EVERY 72 HOURS TDERMAL 09/25/18 13:00 09/29/18 12:59 Folic Acid 1 mg/ Magnesium Sulfate 2000 mg/ Multivitamins 10 ml/Sodium Chloride 1,014.2 ml @ 125 mls/ hr Q24H IV 09/22/18 16:00 10/22/18 15:59 Miscellaneous Medication (fentaNYL Destruction) 1 ea Q72H MISC 09/25/18 13:00 10/22/18 12:59 Sodium Hypochlorite (Dakin's Quarter Strength) 1 applic DAILY TOPIC 09/22/18 13:00 10/22/18 12:59 09/22/18 13:01 Thiamine HCl 100 mg/Dextrose 56 ml @ 112 mls/hr Q24H IVPB 09/22/18 16:00 10/22/18 15:59 Assessment/Plan Problem List: (1) Gangrene of lower extremity ICD Codes: I96 - Gangrene, not elsewhere classified SNOMED: 050443266, 927759235 (2) Decubitus ulcer of left hip, stage 4 ICD Codes: L89.224 - Pressure ulcer of left hip, stage 4 SNOMED: 869980369, 457685529 (3) Severe protein-calorie malnutrition ICD Codes: E43 - Unspecified severe protein-calorie malnutrition SNOMED: 537378588 (4) Sepsis Assessment & Plan: very ill septic left leg gangrene from arterial clot/ischemia groin/inguinal wound respiratory depression inability to tolerate po intake multiple problems which are complex and interrelated. does not want tube feeds or feeing tube does not want to take risk of aspiration with diet only left with keeping him NPO on hospice / end of life comfort care has been on detention IV Abx for infection very ill and significantly declined since last visit. he is deteriorating in all aspects -comfort care measures no role for debridement would not tolerate surgery or amputation ICD Codes: A41.9 - Sepsis, unspecified organism SNOMED: 61467083 Alli Parada Sep 22, 2018 15:58
[2018-09-22] MEDS ORDERED: Folic Acid 1 MG, Magnesium Sulfate 2,000 MG, Multivitamin - 12 Injection 10 ML in NS w/... IV SCH ×8 (16:00)
[2018-09-22] MEDS ORDERED: Thiamine 100mg in D5W 55ml IVPB SCH (16:00)
--- NOTE | 2018-09-22 16:03 | Cardiology Report ---
APPROVED REPORT EKG Measurement Heart [id number] Sinus tachycardia with premature supraventricular complexes and with occasional premature ventricular complexes Septal infarct, age undetermined Abnormal ECG
--- NOTE | 2018-09-22 19:43 | NUR ---
NURSE NOTES: Received patient on bed sleeping, patient on venturi mask at 10L O2, IV line intact, Bed in low position and locked, is at bedside. will continue to monitor.
--- NOTE | 2018-09-22 19:43 | NUR ---
HAND-OFF: Report given to PRAVIN MAHMOOD.
--- NOTE | 2018-09-22 19:56 | History & Physical ---
History and Physical History & Physicial Dictated for Int Med-Dr Sales no. [id number]. Hudson Franco MD Sep 22, 2018 19:56
[2018-09-22] MEDS ORDERED: Morphine Sulfate 4mg/ml Inj (IV/IM USE ONLY) IVP PRN ×2 (20:00)
--- NOTE | 2018-09-22 21:32 | Consultation ---
History of Present Illness General Chief Complaint: Altered Level of Consciousness Present Illness HPI 68-year-old male with dx of lung cancer with metastasis to bones and brain who pw more confusion. The pts was in room and was severely anxious and concerned about her 's condition. The pt was confused and severely weak. He was unable to provide hx. His insisted that the pt is lucid and is able to converse. The was illogical and when I spoke to her in regards to palliative care, she stated "I need more specialist. Tomorrow Dr. Jain will come to visit him. I only trust him." Allergies: Coded Allergies: No Known Allergies (Unverified , 08/07/18) Medication History Scheduled Amino Acids/Protein Hydrolys (Pro-Stat Liquid), 30 ML ORAL TWICE A DAY, ( Reported) Ascorbic Acid* (Vitamin C*), 500 MG ORAL DAILY, (Reported) Aspirin* (Aspir 81*), 81 MG ORAL DAILY, (Reported) Bimatoprost (Lumigan), 1 DROP BOTH EYES BEDTIME, (Reported) Brimonidine Tartrate (Alphagan P), 5 ML OP BID, (Reported) Clonidine Hcl* (Catapres*), 0.1 MG ORAL EVERY 4 HOURS, (Reported) Docusate Sodium* (Docusate Sodium*), 100 MG ORAL TWICE A DAY, (Reported) Doxycycline Hyclate* (Vibramycin*), 100 MG ORAL EVERY 12 HOURS, (Reported) Enoxaparin* (Lovenox*), 60 MG SUBQ EVERY 12 HOURS, (Reported) Epoetin Jose A (Epogen), 5,000 UNIT SUBQ every Mon, Wed, Fri, (Reported) Fentanyl 75MCG Patch* (Fentanyl 75MCG Patch*), 1 PATCH TDERMAL EVERY 72 HOURS, ( Reported) Finasteride* (Proscar*), 5 MG ORAL DAILY, (Reported) Mirtazapine* (Mirtazapine*), 15 MG ORAL BEDTIME, (Reported) Multivitamin With Minerals (Multivitamins With Minerals*), 1 TAB ORAL DAILY, ( Reported) Tamsulosin Hcl (Tamsulosin Hcl*), 0.4 MG ORAL BID, (Reported) Zinc Sulfate (Zinc Sulfate*), 220 MG ORAL DAILY, (Reported) Scheduled PRN Hydrocodone Bit/Acetaminophen 10-325* ([place] 10-325*), 1 TAB ORAL Q4H PRN for Pain Scale (6-10), (Reported) Hydrocodone Bit/Acetaminophen 10-325* ([place] 10-325*), 1 TAB ORAL DAILY PRN for PAIN - 30-45 min prior to tx, (Reported) Hydrocodone Bit/Acetaminophen 5-325* ([place] 5-325*), 1 TAB ORAL Q4H PRN for Moderate Pain (Pain Scale 4-6), (Reported) Patient History Limited by: medical condition History Provided By: Family Member, Medical Record, PMD Healthcare decision maker ALESSANDRO CARSON Resuscitation status Do Not Resuscitate Advanced Directive on File Past Medical/Surgical History Past Medical/Surgical History: (1) Severe protein-calorie malnutrition (2) DNR (do not resuscitate) (3) Decubitus ulcer of left hip, stage 4 (4) Gangrene of lower extremity (5) Lung cancer metastatic to brain (6) Acute respiratory failure (7) Sepsis (8) End of life care (9) At high risk for aspiration (10) Dehydration (11) Malnutrition (12) Stage 1 skin ulcer of sacral region Review of Systems Psychiatric: Reports: prior hx, other - the pt was severely weak and was unable to provide any hx Physical Exam General Appearance: alert, confused, agitated, cachetic Last 24 Hour Vital Signs Date Time Temp Pulse Resp B/P (MAP) Pulse Ox O2 Delivery O2 Flow Rate FiO2 09/22/18 20:32 97 Venturi Mask 12.0 50 09/22/18 20:32 112 18 Venturi Mask 12.0 50 09/22/18 20:32 Venturi Mask 12.0 50 09/22/18 20:00 Simple Mask 15.0 09/22/18 16:00 98.2 111 40 119/57 (77) 95 09/22/18 16:00 Simple Mask 15.0 09/22/18 13:00 97.7 107 45 111/62 (78) 97 09/22/18 12:00 98.2 106 45 109/58 (75) 95 09/22/18 12:00 Simple Mask 15.0 09/22/18 08:00 102 09/22/18 08:00 Simple Mask 15.0 09/22/18 08:00 98.1 101 40 98/60 (73) 97 09/22/18 04:07 112 1/9/19 04:00 Simple Mask 15.0 09/22/18 04:00 98.6 110 36 100/51 (67) 99 09/22/18 00:00 98.4 114 36 110/75 (87) 99 09/22/18 00:00 Simple Mask 15.0 09/21/18 23:19 114 Intake and Output 09/21/18 09/22/18 19:00 07:00 Intake Total 1095.705 ml Output Total 0 ml Balance 1095.705 ml Intake IV Total 1095.705 ml Output Urine Total 0 ml # Voids 1 Laboratory Tests Test 09/21/18 23:20 09/22/18 06:05 Activated Partial Thromboplast Time 33 SEC (23-33) 40 SEC (23-33) H White Blood Count 21.6 K/UL (4.8-10.8) H Red Blood Count 2.74 M/UL (4.70-6.10) L Hemoglobin 6.7 G/DL (14.2-18.0) *L Hematocrit 21.9 % (42.0-52.0) L Mean Corpuscular Volume 80 FL (80-99) Mean Corpuscular Hemoglobin 24.6 PG (27.0-31.0) L Mean Corpuscular Hemoglobin Concent 30.7 G/DL (32.0-36.0) L Red Cell Distribution Width 17.8 % (11.6-14.8) H Platelet Count 456 K/UL (150-450) H Mean Platelet Volume 4.6 FL (6.5-10.1) L Neutrophils (%) (Auto) % (45.0-75.0) Lymphocytes (%) (Auto) % (20.0-45.0) Monocytes (%) (Auto) % (1.0-10.0) Eosinophils (%) (Auto) % (0.0-3.0) Basophils (%) (Auto) % (0.0-2.0) Differential Total Cells Counted 100 Neutrophils % (Manual) 79 % (45-75) H Lymphocytes % (Manual) 6 % (20-45) L Monocytes % (Manual) 6 % (1-10) Eosinophils % (Manual) 0 % (0-3) Basophils % (Manual) 0 % (0-2) Metamyelocytes % 1 % (0-0) H Band Neutrophils 8 % (0-8) Platelet Estimate Increased H Platelet Morphology Normal Hypochromasia 2+ Anisocytosis 1+ Sodium Level 146 MMOL/L (136-145) H Potassium Level 3.4 MMOL/L (3.5-5.1) L Chloride Level 111 MMOL/L (98-107) H Carbon Dioxide Level 25 MMOL/L (21-32) Anion Gap 10 mmol/L (5-15) Blood Urea Nitrogen 17 mg/dL (7-18) Creatinine 0.4 MG/DL (0.55-1.30) L Estimat Glomerular Filtration Rate > 60 mL/min (>60) Glucose Level 110 MG/DL (74-106) #H Calcium Level 8.9 MG/DL (8.5-10.1) Phosphorus Level 5.0 MG/DL (2.5-4.9) H Magnesium Level 1.9 MG/DL (1.8-2.4) Height (Feet): 5 Height (Inches): 4.00 Weight (Pounds): 105 Medications Current Medications Medications (Trade) Dose Ordered Sig/Efraín Route PRN Reason Start Time Stop Time Status Last Admin Dose Admin Albuterol/ Ipratropium (Albuterol/ Ipratropium) 3 ml Q4H PRN HHN Shortness of Breath 09/22/18 13:00 09/27/18 12:59 Amikacin Protocol (Amikacin pharmacy to dose) 1 ea DAILY PRN MISC Per rx protocol 09/22/18 14:00 10/22/18 13:59 Amikacin Sulfate 700 mg/Sodium Chloride 277.8 ml @ 277.8 mls/ hr Q24H IV 09/22/18 15:00 09/29/18 14:59 09/22/18 16:03 Cefepime HCl 1 gm/ Dextrose 55 ml @ 110 mls/hr Q24H IVPB 09/23/18 13:30 09/29/18 13:29 Fentanyl (Duragesic) 1 patch EVERY 72 HOURS TDERMAL 09/25/18 13:00 09/29/18 12:59 Folic Acid 1 mg/ Magnesium Sulfate 2000 mg/ Multivitamins 10 ml/Sodium Chloride 1,014.2 ml @ 125 mls/ hr Q24H IV 09/22/18 16:00 10/22/18 15:59 09/22/18 17:40 Miscellaneous Medication (fentaNYL Destruction) 1 ea Q72H MISC 09/25/18 13:00 10/22/18 12:59 Morphine Sulfate (Morphine Sulfate) 2 mg Q4H PRN IVP Moderate Pain (Pain Scale 4-6) 09/22/18 20:00 09/29/18 19:59 Morphine Sulfate (Morphine Sulfate) 4 mg Q4H PRN IVP Severe Pain (Pain Scale 7-10) 09/22/18 20:00 09/29/18 19:59 Sodium Hypochlorite (Dakin's Quarter Strength) 1 applic DAILY TOPIC 09/22/18 13:00 10/22/18 12:59 09/22/18 13:01 Thiamine HCl 100 mg/Dextrose 56 ml @ 112 mls/hr Q24H IVPB 09/22/18 16:00 10/22/18 15:59 09/22/18 17:41 Assessment/Plan Problem List: (1) Lung cancer metastatic to brain ICD Codes: C34.90 - Malignant neoplasm of unspecified part of unspecified bronchus or lung; C79.31 - Secondary malignant neoplasm of brain SNOMED: 88125298, 16136922 (2) encephalopathy due to toxin Assessment/Plan remeron 15mg qhs the pt lacks capacity and the is the decision maker recommend palliative care Kellie Russell MD Sep 22, 2018 21:32
--- NOTE | 2018-09-22 23:45 | History and Physical Report ---
DATE OF ADMISSION: 09/21/2018 CHIEF COMPLAINT: The patient is a 68-year-old male who presents with chief complaint of altered mental status and decompensation. HISTORY OF PRESENT ILLNESS: The patient was admitted to [facility] in July of 2018. The patient has a history of stage IV adenocarcinoma of the lung. The patient has metastases to the brain and spinal cord. The patient was discharged from [facility] to [facility]. The patient was then admitted to [facility] in August of 2018. The patient was discharged home to be taken care by his . According to the , the patient has had worsening status over the last week. The patient is generally weak. The patient is DNR/DNI. The patient presented to [facility]. The patient is admitted for gangrene of the left lower extremity as well as decompensation. REVIEW OF SYSTEMS: Unable to assess secondary to the patient's mental status. PAST MEDICAL HISTORY: Significant for: 1. 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 2. Coronary artery disease. 3. Diabetes, type 2. 4. Hypertension. 5. Benign prostatic hypertrophy. 6. 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 7. Left leg gangrene. PAST SURGICAL HISTORY: Debridement of stage IV left hip decubitus ulcer. CURRENT MEDICATIONS: 1. Vitamin C 500 mg one tablet p.o. daily. 2. Aspirin 81 mg p.o. daily. 3. Lumigan one drop to both eyes at bedtime. 4. Alphagan one drop to both eyes twice daily. 5. Clonidine 0.1 mg p.o. q.4 h. p.r.n. 6. Lovenox 60 mg subcutaneous twice daily. 7. Epogen 5000 units subcutaneously on Thursday, Thursday, and Thursday. 8. Fentanyl 75 mcg patch applied every three days. 9. Finasteride 5 mg p.o. daily. 10. [place] 10/325 mg one tablet p.o. q.4 h. p.r.n. 11. Mirtazapine 15 mg p.o. at bedtime. 12. Multivitamin one tablet p.o. daily. 13. Flomax 0.4 mg twice daily. 14. Zinc sulfate 220 mg p.o. daily. ALLERGIES: No known drug allergies. SOCIAL HISTORY: The patient is and lives at home with his . The patient denies tobacco or alcohol use. PHYSICAL EXAMINATION: VITAL SIGNS: Temperature 98.6, respirations 36 to 40, pulse 110, blood pressure 100/51. GENERALLY: The patient is thin-appearing white male, who is somewhat lethargic. HEENT: Eyes, pupils equal responsive to light and accommodation. Extraocular movements are intact. NECK: Supple. No lymphadenopathy. CHEST: Decreased breath sounds on the left. Otherwise, clear to auscultation without wheezes or rales. CARDIOVASCULAR: Regular rhythm and rate. S1 and S2 normal without murmurs, rubs, or gallops. ABDOMEN: Soft, nontender, nondistended. Positive bowel sounds. No evidence of hepatosplenomegaly. Currently, no rebound or guarding noted. EXTREMITIES: Negative for clubbing, cyanosis, or edema. NEUROLOGIC: Unable to assess. LABORATORY STUDIES: WBC 21.3, hemoglobin 7.3, hematocrit 22.5 platelets 480,000. Sodium 143, potassium 4.0 chloride 107, CO2 24, BUN 22, creatinine 0.8, glucose 222. Liver function tests elevated with an AST of 147, ALT of 191, alkaline phosphatase of 174. Lactic acid 3.70. Chest x-ray revealed marked left lung volume loss with cut off to the left mainstem bronchus consistent with metastasis versus atelectasis. ASSESSMENT: This is a 68-year-old white male. 1. Generalized weakness. 2. Adenocarcinoma of the left upper lobe of the lung with metastases. 3. Left leg gangrene. 4. Thrombo-occlusion of the left leg. 5. Coronary artery disease. 6. Diabetes, type 2. 7. Hypertension. 8. Benign prostatic hypertrophy. TREATMENT: 1. Generalized weakness. This is probably secondary to adenocarcinoma with metastasis below. 2. Adenocarcinoma, left upper lobe of the lung with metastases. The patient is status post failed radiation therapy. The patient appears to be end-stage metastatic colon cancer. A Hematology/Oncology consultation has been obtained with Dr. Pereyra. 3. Left leg gangrene, a surgery consultation obtained with Dr. Parada. The patient may require amputation during this hospitalization. 4. Thrombo-occlusion of the left leg. 5. Coronary artery disease. Continue aspirin as above. 6. Diabetes, type 2. A NovoLog sliding scale has been instituted. 7. Hypertension. Continue clonidine. 8. Benign prostatic hypertrophy. Continue tamoxifen. Hudson Franco M.D. DR: Avery JOB#: [id number] CC:
[2018-09-23] VITALS: BP 124/74
[2018-09-23 03:20] LABS: HEMATOCRIT 20.4 % (42.0-52.0); MEAN CORPUSCULAR VOLUME 80 FL (80-99); PLATELET COUNT 486 K/UL (150-450); RED BLOOD COUNT 2.57 M/UL (4.70-6.10); RED CELL DISTRIBUTION WIDTH 18.3 % (11.6-14.8); WHITE BLOOD COUNT 16.4 K/UL (4.8-10.8)
[2018-09-23 03:38] LABS: ANION GAP 11 mmol/L (5-15); BLOOD UREA NITROGEN 14 mg/dL (7-18); CALCIUM 8.4 MG/DL (8.5-10.1); CARBON DIOXIDE 25 MMOL/L (21-32); CHLORIDE 116 MMOL/L (98-107); CREATININE 0.4 MG/DL (0.55-1.30); POTASSIUM 3.2 MMOL/L (3.5-5.1); SODIUM 152 MMOL/L (136-145)
[2018-09-23 03:41] LABS: HEMOGLOBIN 6.2 G/DL (14.2-18.0)
[2018-09-23 04:00] VITALS: BP 114/62
--- NOTE | 2018-09-23 07:27 | NUR ---
HAND-OFF: Report given to Chidi COSTELLO.
--- NOTE | 2018-09-23 07:32 | NUR ---
NURSE NOTES: Received pt from PRAVIN MAHMOOD. Pt is alert and orient x1. Pt has venturi mask Pt has tachypnea and tachy cardia. pt has intact iv access R wrist 18g HL. pt is NPO. pt's is with him all the time. all needs attended, bed is locked and is in the lowest position, call light within easy reach. will continue to monitor.
[2018-09-23 08:00] VITALS: BP 123/67
[2018-09-23] MEDS: Dakin's 0.125% Soln (Quarter Strength) 16oz TOPIC SCH (08:55)
--- NOTE | 2018-09-23 09:00 | NUR ---
NURSE NOTES: Dr ramos visited pt, he is aware about tachy cardia and tachypnea. Dr ramos is aware about HB and K and NA and other lab results. all orders noted and carried out. will continue to monitor.
--- NOTE | 2018-09-23 11:33 | NUR ---
ST NOTE: SWALLOW STATUS FOLLOWED UP PT'S CONDITIONS. PER PT'S , PT IS MORE AWAKE THIS MORNING. PT SEEN AT BEDSIDE IN AM. ASLEEP, AND DID NOT WANT TO BE BOTHER AT THIS TIME. PER PT'S AND RN, , , [place], CAME THIS MORNING TO SEE PT, AND OKAY FOR PT TO TAKE LIMITED THICKENED LIQUIDS AT TSP LEVEL FOR COMFORT FEEDING. CURRENTLY, PT'S RESPIRATORY RATE IS IMPROVED, 21-24. FOR QUALITY OF LIFE, OKAY FOR TO GIVE NECTAR THICK LIQUIDS AT TSP LEVEL TOLERATED COMFORT FEEDING. EDUCATED PT'S RE: ASPIRATION PRECAUTIONS AND ORAL SUCTION IF NEEDED. PT'S VERBALIZED THE GOOD UNDERSTANDING OF INFO GIVEN. D/W RN AND THE STAFF
[2018-09-23 11:57] VITALS: BP 112/58
--- NOTE | 2018-09-23 14:09 | Pulmonology Progress Note ---
Assessment/Plan Problems: (1) End of life care (2) Acute respiratory failure (3) At high risk for aspiration (4) Lung cancer metastatic to brain (5) Gangrene of lower extremity (6) Decubitus ulcer of left hip, stage 4 (7) DNR (do not resuscitate) (8) Severe protein-calorie malnutrition (9) Sepsis Assessment/Plan more comfortable sleeping comfortably insisting in getting iv fluid prn morphine Subjective ROS Limited/Unobtainable: Yes Constitutional: Reports: no symptoms Respiratory: Reports: no symptoms Allergies: Coded Allergies: No Known Allergies (Unverified , 08/07/18) Objective Last 24 Hour Vital Signs Date Time Temp Pulse Resp B/P (MAP) Pulse Ox O2 Delivery O2 Flow Rate FiO2 09/23/18 11:57 98.4 109 20 112/58 (76) 97 09/23/18 09:00 Simple Mask 15.0 09/23/18 08:12 109 24 Venturi Mask 14.0 55 09/23/18 08:12 98 Venturi Mask 12.0 50 09/23/18 08:12 Venturi Mask 14.0 55 09/23/18 08:00 99.8 109 20 123/67 (85) 98 09/23/18 04:00 98.9 105 20 114/62 (79) 96 09/23/18 00:00 Simple Mask 15.0 09/23/18 00:00 98.8 108 21 124/74 (91) 99 09/22/18 20:32 97 Venturi Mask 12.0 50 09/22/18 20:32 112 18 Venturi Mask 12.0 50 09/22/18 20:32 Venturi Mask 12.0 50 09/22/18 20:00 Simple Mask 15.0 09/22/18 20:00 98.1 113 20 123/65 (84) 96 09/22/18 16:00 98.2 111 40 119/57 (77) 95 09/22/18 16:00 Simple Mask 15.0 Intake and Output 09/22/18 09/23/18 18:59 06:59 Intake Total 458.8 ml 500 ml Output Total 1100 ml Balance 458.8 ml -600 ml Intake IV Total 458.8 ml 500 ml Output Urine Total 1100 ml # Bowel Movements 1 General Appearance: cachetic HEENT: normocephalic, atraumatic Respiratory/Chest: chest wall non-tender, lungs clear Cardiovascular: normal peripheral pulses, normal rate Abdomen: normal bowel sounds, soft, non tender Genitourinary: normal external genitalia Neurologic/Psychiatric: house principal II-XII grossly normal Microbiology Date/Time Source Procedure Growth Status 09/21/18 18:00 Blood Blood Culture - Preliminary Gram Negative Bacillus 1 Resulted 09/21/18 17:45 Blood Blood Culture - Preliminary Gram Negative Bacillus 1 Resulted Laboratory Tests 09/23/18 03:13: White Blood Count 16.4H, Red Blood Count 2.57L, Hemoglobin 6.2*L, Hematocrit 20.4L, Mean Corpuscular Volume 80, Mean Corpuscular Hemoglobin 24.0L, Mean Corpuscular Hemoglobin Concent 30.2L, Red Cell Distribution Width 18.3H, Platelet Count 486H, Mean Platelet Volume 4.5L, Neutrophils (%) (Auto) , Lymphocytes (%) (Auto) , Monocytes (%) (Auto) , Eosinophils (%) (Auto) , Basophils (%) (Auto) , Sodium Level 152H, Potassium Level 3.2L, Chloride Level 116H, Carbon Dioxide Level 25, Anion Gap 11, Blood Urea Nitrogen 14, Creatinine 0.4L, Estimat Glomerular Filtration Rate > 60, Glucose Level 72L, Calcium Level 8.4L, Random Amikacin Level 3.0 Current Medications Medications (Trade) Dose Ordered Sig/Efraín Route PRN Reason Start Time Stop Time Status Last Admin Dose Admin Albuterol/ Ipratropium (Albuterol/ Ipratropium) 3 ml Q4H PRN HHN Shortness of Breath 09/22/18 13:00 09/27/18 12:59 Amikacin Protocol (Amikacin pharmacy to dose) 1 ea DAILY PRN MISC Per rx protocol 09/22/18 14:00 10/22/18 13:59 Amikacin Sulfate 700 mg/Sodium Chloride 277.8 ml @ 277.8 mls/ hr Q48H IV 09/24/18 16:00 09/29/18 14:59 Cefepime HCl 1 gm/ Dextrose 55 ml @ 110 mls/hr Q24H IVPB 09/23/18 13:30 09/29/18 13:29 Fentanyl (Duragesic) 1 patch EVERY 72 HOURS TDERMAL 09/25/18 13:00 09/29/18 12:59 Folic Acid 1 mg/ Magnesium Sulfate 2000 mg/ Multivitamins 10 ml/Sodium Chloride 1,014.2 ml @ 125 mls/ hr Q24H IV 09/22/18 16:00 10/22/18 15:59 09/22/18 17:40 Miscellaneous Medication (fentaNYL Destruction) 1 ea Q72H MISC 09/25/18 13:00 10/22/18 12:59 Morphine Sulfate (Morphine Sulfate) 2 mg Q4H PRN IVP Moderate Pain (Pain Scale 4-6) 09/22/18 20:00 09/29/18 19:59 09/22/18 22:39 Morphine Sulfate (Morphine Sulfate) 4 mg Q4H PRN IVP Severe Pain (Pain Scale 7-10) 09/22/18 20:00 09/29/18 19:59 Sodium Hypochlorite (Dakin's Quarter Strength) 1 applic DAILY TOPIC 09/22/18 13:00 10/22/18 12:59 09/23/18 08:55 Thiamine HCl 100 mg/Dextrose 56 ml @ 112 mls/hr Q24H IVPB 09/22/18 16:00 10/22/18 15:59 09/22/18 17:41 Rosa Maria Palumbo MD Sep 23, 2018 14:08
[2018-09-23] MEDS: Cefepime HCl 1 GM in D5W 55 ML IVPB SCH (14:26)
[2018-09-23] MEDS: MULTIVITAMIN IV SCH (15:51)
[2018-09-23] MEDS: D5W IV SCH (15:51)
--- NOTE | 2018-09-23 15:59 | General Surgery Progress Note ---
General Surgery-Progress Note Subjective Additional Comments leukocytosis improving. he is unresponsive today. ill appearing Objective Last 24 Hour Vital Signs Date Time Temp Pulse Resp B/P (MAP) Pulse Ox O2 Delivery O2 Flow Rate FiO2 09/23/18 11:57 98.4 109 20 112/58 (76) 97 09/23/18 09:00 Simple Mask 15.0 09/23/18 08:12 109 24 Venturi Mask 14.0 55 09/23/18 08:12 98 Venturi Mask 12.0 50 09/23/18 08:12 Venturi Mask 14.0 55 09/23/18 08:00 99.8 109 20 123/67 (85) 98 09/23/18 04:00 98.9 105 20 114/62 (79) 96 09/23/18 00:00 Simple Mask 15.0 09/23/18 00:00 98.8 108 21 124/74 (91) 99 09/22/18 20:32 97 Venturi Mask 12.0 50 09/22/18 20:32 112 18 Venturi Mask 12.0 50 09/22/18 20:32 Venturi Mask 12.0 50 09/22/18 20:00 Simple Mask 15.0 09/22/18 20:00 98.1 113 20 123/65 (84) 96 09/22/18 16:00 98.2 111 40 119/57 (77) 95 09/22/18 16:00 Simple Mask 15.0 I&O Intake and Output 09/22/18 09/23/18 18:59 06:59 Intake Total 458.8 ml 500 ml Output Total 1100 ml Balance 458.8 ml -600 ml Intake IV Total 458.8 ml 500 ml Output Urine Total 1100 ml # Bowel Movements 1 Dressing: other Wound: other Drains: other Cardiovascular: RSR Respiratory: decreased breath sounds Abdomen: soft, present bowel sounds Extremities: other Laboratory Tests Test 09/23/18 03:13 White Blood Count 16.4 K/UL (4.8-10.8) H Red Blood Count 2.57 M/UL (4.70-6.10) L Hemoglobin 6.2 G/DL (14.2-18.0) *L Hematocrit 20.4 % (42.0-52.0) L Mean Corpuscular Volume 80 FL (80-99) Mean Corpuscular Hemoglobin 24.0 PG (27.0-31.0) L Mean Corpuscular Hemoglobin Concent 30.2 G/DL (32.0-36.0) L Red Cell Distribution Width 18.3 % (11.6-14.8) H Platelet Count 486 K/UL (150-450) H Mean Platelet Volume 4.5 FL (6.5-10.1) L Neutrophils (%) (Auto) % (45.0-75.0) Lymphocytes (%) (Auto) % (20.0-45.0) Monocytes (%) (Auto) % (1.0-10.0) Eosinophils (%) (Auto) % (0.0-3.0) Basophils (%) (Auto) % (0.0-2.0) Sodium Level 152 MMOL/L (136-145) H Potassium Level 3.2 MMOL/L (3.5-5.1) L Chloride Level 116 MMOL/L (98-107) H Carbon Dioxide Level 25 MMOL/L (21-32) Anion Gap 11 mmol/L (5-15) Blood Urea Nitrogen 14 mg/dL (7-18) Creatinine 0.4 MG/DL (0.55-1.30) L Estimat Glomerular Filtration Rate > 60 mL/min (>60) Glucose Level 72 MG/DL (74-106) L Calcium Level 8.4 MG/DL (8.5-10.1) L Random Amikacin Level 3.0 ug/mL Plan Problems: (1) Gangrene of lower extremity (2) Decubitus ulcer of left hip, stage 4 (3) Severe protein-calorie malnutrition (4) Sepsis Assessment & Plan: very ill septic left leg gangrene from arterial clot/ischemia groin/inguinal wound respiratory depression inability to tolerate po intake multiple problems which are complex and interrelated. does not want tube feeds or feeing tube does not want to take risk of aspiration with diet only left with keeping him NPO on hospice / end of life comfort care has been on fci IV Abx for infection very ill and significantly declined since last visit. he is deteriorating in all aspects -comfort care measures no role for debridement would not tolerate surgery or amputation Alli Parada Sep 23, 2018 15:59
[2018-09-23 16:00] VITALS: BP 110/57
--- NOTE | 2018-09-23 17:32 | NUR ---
NURSE NOTES: pt has clear secretions. suction done will continue to monitor.
--- NOTE | 2018-09-23 18:16 | Internal Med Progress Note ---
Subjective Date of Service: Sep 23, 2018 Physician Name Hudson Franco Attending Physician Shabbir Sales MD Current Medications Medications (Trade) Dose Ordered Sig/Efraín Route PRN Reason Start Time Stop Time Status Last Admin Dose Admin Albuterol/ Ipratropium (Albuterol/ Ipratropium) 3 ml Q4H PRN HHN Shortness of Breath 09/22/18 13:00 09/27/18 12:59 Cefepime HCl 1 gm/ Dextrose 55 ml @ 110 mls/hr Q24H IVPB 09/23/18 13:30 09/29/18 13:29 09/23/18 14:26 Fentanyl (Duragesic) 1 patch EVERY 72 HOURS TDERMAL 09/25/18 13:00 09/29/18 12:59 Miscellaneous Medication (fentaNYL Destruction) 1 ea Q72H MISC 09/25/18 13:00 10/22/18 12:59 Morphine Sulfate (Morphine Sulfate) 4 mg Q4H PRN IVP Severe Pain (Pain Scale 7-10) 09/22/18 20:00 09/29/18 19:59 Multivitamins 10 ml/Dextrose 1,010 ml @ 50 mls/hr [id number] IV 09/23/18 16:00 10/23/18 15:59 09/23/18 15:51 Sodium Hypochlorite (Dakin's Quarter Strength) 1 applic DAILY TOPIC 09/22/18 13:00 10/22/18 12:59 09/23/18 08:55 Allergies: Coded Allergies: No Known Allergies (Unverified , 08/07/18) ROS Limited/Unobtainable: Yes Subjective 68 YO M admitted with stage IV adenocarcinoma of lung and generalized weakness. Cover for Int Med-Dr Sales Objective Last Vital Signs Date Time Temp Pulse Resp B/P (MAP) Pulse Ox O2 Delivery O2 Flow Rate FiO2 09/23/18 16:00 98.4 109 20 110/57 (74) 96 09/23/18 09:00 Simple Mask 15.0 09/23/18 08:12 55 Laboratory Tests Test 09/23/18 03:13 White Blood Count 16.4 K/UL (4.8-10.8) H Red Blood Count 2.57 M/UL (4.70-6.10) L Hemoglobin 6.2 G/DL (14.2-18.0) *L Hematocrit 20.4 % (42.0-52.0) L Mean Corpuscular Volume 80 FL (80-99) Mean Corpuscular Hemoglobin 24.0 PG (27.0-31.0) L Mean Corpuscular Hemoglobin Concent 30.2 G/DL (32.0-36.0) L Red Cell Distribution Width 18.3 % (11.6-14.8) H Platelet Count 486 K/UL (150-450) H Mean Platelet Volume 4.5 FL (6.5-10.1) L Neutrophils (%) (Auto) % (45.0-75.0) Lymphocytes (%) (Auto) % (20.0-45.0) Monocytes (%) (Auto) % (1.0-10.0) Eosinophils (%) (Auto) % (0.0-3.0) Basophils (%) (Auto) % (0.0-2.0) Sodium Level 152 MMOL/L (136-145) H Potassium Level 3.2 MMOL/L (3.5-5.1) L Chloride Level 116 MMOL/L (98-107) H Carbon Dioxide Level 25 MMOL/L (21-32) Anion Gap 11 mmol/L (5-15) Blood Urea Nitrogen 14 mg/dL (7-18) Creatinine 0.4 MG/DL (0.55-1.30) L Estimat Glomerular Filtration Rate > 60 mL/min (>60) Glucose Level 72 MG/DL (74-106) L Calcium Level 8.4 MG/DL (8.5-10.1) L Random Amikacin Level 3.0 ug/mL Microbiology Date/Time Source Procedure Growth Status 09/21/18 18:00 Blood Blood Culture - Preliminary Gram Negative Bacillus 1 Resulted 09/21/18 17:45 Blood Blood Culture - Preliminary Gram Negative Bacillus 1 Resulted Intake and Output 09/22/18 09/23/18 19:00 07:00 Intake Total 458.8 ml 500 ml Output Total 1100 ml Balance 458.8 ml -600 ml Intake IV Total 458.8 ml 500 ml Output Urine Total 1100 ml # Bowel Movements 1 Objective PHYSICAL EXAMINATION: GENERALLY: The patient is thin-appearing white male, who is somewhat lethargic. HEENT: Eyes, pupils equal responsive to light and accommodation. Extraocular movements are intact. NECK: Supple. No lymphadenopathy. CHEST: Decreased breath sounds on the left. Otherwise, clear to auscultation without wheezes or rales. CARDIOVASCULAR: Regular rhythm and rate. S1 and S2 normal without murmurs, rubs, or gallops. ABDOMEN: Soft, nontender, nondistended. Positive bowel sounds. No evidence of hepatosplenomegaly. Currently, no rebound or guarding noted. EXTREMITIES: Negative for clubbing, cyanosis, or edema. NEUROLOGIC: Unable to assess. Assessment/Plan Problem List: (1) CAD (coronary artery disease) (2) Diabetes mellitus type II, controlled (3) Hypertension (4) BPH (benign prostatic hyperplasia) (5) Decubitus ulcer, stage IV (6) DNR (do not resuscitate) (7) Lung cancer metastatic to brain (8) Gangrene of lower extremity Assessment & Plan: Continue cefepime (9) Severe protein-calorie malnutrition Assessment/Plan End of life care-see pulmonary note. Hudson Franco MD Sep 23, 2018 18:16
--- NOTE | 2018-09-23 19:19 | NUR ---
HAND-OFF: Report given to PRAVIN OLIVER.
--- NOTE | 2018-09-23 19:49 | NUR ---
NURSE NOTES: Received patient comfortably sleeping, at bedside.
[2018-09-23 20:00] VITALS: BP 105/60
--- NOTE | 2018-09-23 22:29 | General Progress Note ---
Assessment/Plan Problem List: (1) Lung cancer metastatic to brain ICD Codes: C34.90 - Malignant neoplasm of unspecified part of unspecified bronchus or lung; C79.31 - Secondary malignant neoplasm of brain SNOMED: 70044992, [id number] (2) encephalopathy due to toxin Status: unchanged Assessment/Plan remeron 15mg qhs the pt lacks capacity and the is the decision maker recommend palliative care Subjective Allergies: Coded Allergies: No Known Allergies (Unverified , 08/07/18) Subjective the pt was lethargic today and was moaning. the pt s in the room. she was in a good mood and stated that he is doing better today. she is denial about her . Dr. Jain has visited today Objective Last 24 Hour Vital Signs Date Time Temp Pulse Resp B/P (MAP) Pulse Ox O2 Delivery O2 Flow Rate FiO2 09/23/18 21:00 Simple Mask 15.0 09/23/18 20:34 96 Venturi Mask 12.0 50 09/23/18 20:34 Venturi Mask 12.0 50 09/23/18 20:33 101 24 Venturi Mask 12.0 50 09/23/18 20:00 100.0 100 16 105/60 (75) 98 09/23/18 16:00 98.4 109 20 110/57 (74) 96 09/23/18 11:57 98.4 109 20 112/58 (76) 97 09/23/18 09:00 Simple Mask 15.0 09/23/18 08:12 109 24 Venturi Mask 14.0 55 09/23/18 08:12 98 Venturi Mask 12.0 50 09/23/18 08:12 Venturi Mask 14.0 55 09/23/18 08:00 99.8 109 20 123/67 (85) 98 09/23/18 04:00 98.9 105 20 114/62 (79) 96 09/23/18 00:00 Simple Mask 15.0 09/23/18 00:00 98.8 108 21 124/74 (91) 99 Intake and Output 09/22/18 09/23/18 19:00 07:00 Intake Total 458.8 ml 500 ml Output Total 1100 ml Balance 458.8 ml -600 ml Intake IV Total 458.8 ml 500 ml Output Urine Total 1100 ml # Bowel Movements 1 Laboratory Tests 09/23/18 03:13: White Blood Count 16.4H, Red Blood Count 2.57L, Hemoglobin 6.2*L, Hematocrit 20.4L, Mean Corpuscular Volume 80, Mean Corpuscular Hemoglobin 24.0L, Mean Corpuscular Hemoglobin Concent 30.2L, Red Cell Distribution Width 18.3H, Platelet Count 486H, Mean Platelet Volume 4.5L, Neutrophils (%) (Auto) , Lymphocytes (%) (Auto) , Monocytes (%) (Auto) , Eosinophils (%) (Auto) , Basophils (%) (Auto) , Sodium Level 152H, Potassium Level 3.2L, Chloride Level 116H, Carbon Dioxide Level 25, Anion Gap 11, Blood Urea Nitrogen 14, Creatinine 0.4L, Estimat Glomerular Filtration Rate > 60, Glucose Level 72L, Calcium Level 8.4L, Random Amikacin Level 3.0 Height (Feet): 5 Height (Inches): 4.00 Weight (Pounds): 105 General Appearance: lethargic, confused, agitated, cachetic Kellie Russell MD Sep 23, 2018 22:29
--- NOTE | 2018-09-23 22:45 | Consultation ---
DATE OF CONSULTATION: 09/23/2018 NOTE: POOR AUDIO HEMATOLOGY AND ONCOLOGY CONSULTATION CONSULTING PHYSICIAN: Francisco Conway M.D. REFERRING PHYSICIAN: Alli Parada M.D. REASON FOR CONSULTATION: Metastatic lung cancer. HISTORY OF PRESENT ILLNESS: The patient is an extremely pleasant gentleman, born on 1950. The patient has had longstanding history of lung cancer, status post multiple lines of chemotherapy as well as immunotherapy. The patient has had history of significant severe bone metastasis, brain metastasis, diffuse metastasis, has not been able to be treated severe poor performance status. The patient has been residing in a nursing facility. Apparently has been presented to the hospital with significant left lower extremity gangrene. The patient has had a history of vascular compromise previously; however, currently does have severe gangrene grown up to the level of the knee. The patient discussed with Dr. Parada, of surgical team. The patient is not a candidate for amputation. The patient has been [facility] PAST MEDICAL HISTORY: Metastatic renal carcinoma, multiple areas including bone, joints, spinal cord, history of coronary artery disease, history of severe cachexia, history of immobility, history of diabetes, history of gangrene, history of vascular compromise due to severe metastases likely to the pelvic bony areas of the left leg, history of BPH, history of lower extremity arterial thrombus, severe occlusion, and history of leg gangrene. PAST SURGICAL HISTORY: Status post multiple biopsies, history of decubitus ulcer debridements. REVIEW OF SYSTEMS: Unable to obtain from the patient. The patient is nonverbal at this time. MEDICATIONS: Has been reviewed with the nurse as well as the medical records. ALLERGIES: Per medical records. SOCIAL HISTORY: The patient is , has extremely supportive , who was at bedside 24 hours a day. No recent tobacco, alcohol, or drugs. The patient has been residing in a nursing facility. PHYSICAL EXAMINATION: GENERAL: The patient is not verbal. VITAL SIGNS: Temperature 98.6, pulse of 120, the patient has been hypoxic. CHEST: Rhonchi bilaterally. CARDIAC: Regular rhythm. S1 and S2. ABDOMEN: Soft, nontender, and nondistended. EXTREMITIES: Evidence of severe gangrene of left lower extremity. There are multiple decubitus ulcers. LABORATORY AND DIAGNOSTIC DATA: Laboratory as well as investigational studies demonstrate a white count of 21, current hemoglobin in the 6 range. The patient's sodium at 152 and potassium of 3 range. ASSESSMENT/PLAN: 1. Widely metastatic lung cancer to multiple areas. The patient has had multiple lines of therapy currently extremely grave current medical condition. The patient does not have any other chemotherapy or oncologic options of therapy. The patient's overall performance is extremely poor. The patient as a matter of fact is quite terminal. I have had an extensive discussion with the patient's yesterday for approximately 60 minutes. in detail discussed with the patient's . At this time, the patient is DNR/DNI. The patient's understand that the patient pretty soon within the next 24 hours to 72 hours most likely. At this time, however, the patient and does want to have the antibiotics to continue. The patient's also wanted to be able to give the patient some oral intake; however, in lieu of the severe aspiration risk factor only to use thickened liquids only for comfort and . There has been discussed with nursing staff. At this point, wants to continue the banana bag. 2. Hypernatremia. I have told the nurse to Dr. Palumbo, in regards to switching the patient switching patient's banana bag to half normal saline. I will defer any management of this to primary team. 3. Hypokalemia. 4. Code status is DNR. 5. Gangrene. The patient is not a candidate for amputation. Francisco Conway M.D. DR: MARIA TERESA JOB#: [id number] CC:
[2018-09-24] VITALS: BP 101/56
[2018-09-24 04:00] VITALS: BP 97/51
--- NOTE | 2018-09-24 06:48 | NUR ---
NURSE NOTES: Dolly from [facility] relayed result for this patient that he is positive of MDR of the blood. informed.
--- NOTE | 2018-09-24 07:28 | NUR ---
HAND-OFF: Report given to Chidi Westbrook RN.
--- NOTE | 2018-09-24 07:52 | NUR ---
NURSE NOTES: Received pt from PRAVIN OLIVER. Pt is orient x1. pt has simple mask with tachypnea.pt has intact iv access L wrist 22g is running well . pt is in contact isolation. pt has condom cath, changed today. wound treatment done. pt's is with him all the time. all needs attended, bed is locked and is in the lowest position, call light within easy reach. will continue to monitor.
[2018-09-24 08:00] VITALS: BP 105/55
[2018-09-24] MEDS: Dakin's 0.125% Soln (Quarter Strength) 16oz TOPIC SCH (09:08)
[2018-09-24 12:00] VITALS: BP 95/53
[2018-09-24] MEDS: MULTIVITAMIN IV SCH (12:16)
[2018-09-24] MEDS: D5W IV SCH (12:16)
--- NOTE | 2018-09-24 12:16 | General Surgery Progress Note ---
General Surgery-Progress Note Subjective Additional Comments no acute events. ill appearing Objective Last 24 Hour Vital Signs Date Time Temp Pulse Resp B/P (MAP) Pulse Ox O2 Delivery O2 Flow Rate FiO2 09/24/18 08:00 98.4 101 18 105/55 (72) 95 09/24/18 04:00 98.3 98 15 97/51 (66) 98 09/24/18 00:00 99.5 105 18 101/56 (71) 98 09/23/18 21:00 Simple Mask 15.0 09/23/18 20:34 96 Venturi Mask 12.0 50 09/23/18 20:34 Venturi Mask 12.0 50 09/23/18 20:33 101 24 Venturi Mask 12.0 50 09/23/18 20:00 100.0 100 16 105/60 (75) 98 09/23/18 16:00 98.4 109 20 110/57 (74) 96 I&O Intake and Output 09/23/18 09/24/18 19:00 07:00 Intake Total 205 ml 600 ml Output Total 500 ml 150 ml Balance -295 ml 450 ml Intake IV Total 205 ml 600 ml Output Urine Total 500 ml 150 ml Dressing: other Wound: other Drains: other Cardiovascular: RSR Respiratory: decreased breath sounds, other Abdomen: soft, present bowel sounds Extremities: other Plan Problems: (1) Gangrene of lower extremity (2) Decubitus ulcer of left hip, stage 4 (3) Severe protein-calorie malnutrition (4) Sepsis Assessment & Plan: very ill septic left leg gangrene from arterial clot/ischemia groin/inguinal wound respiratory depression inability to tolerate po intake multiple problems which are complex and interrelated. does not want tube feeds or feeing tube does not want to take risk of aspiration with diet only left with keeping him NPO on hospice / end of life comfort care has been on exterminator helper IV Abx for infection very ill and significantly declined since last visit. he is deteriorating in all aspects -comfort care measures no role for debridement would not tolerate surgery or amputation Alli Parada Sep 24, 2018 12:16
--- NOTE | 2018-09-24 12:56 | NUR ---
NURSE NOTES: pt's asked to speak with social worker clinical to help her, called MICHAEL, she spoke with her. will continue to F/A.
[2018-09-24] MEDS: Cefepime HCl 1 GM in D5W 55 ML IVPB SCH (13:18)
--- NOTE | 2018-09-24 14:23 | Pulmonology Progress Note ---
Assessment/Plan Problems: (1) End of life care (2) Acute respiratory failure (3) At high risk for aspiration (4) Lung cancer metastatic to brain (5) Gangrene of lower extremity (6) Decubitus ulcer of left hip, stage 4 (7) DNR (do not resuscitate) (8) Severe protein-calorie malnutrition Assessment/Plan moribund more comfortable sleeping comfortably insisting in getting iv fluid prn morphine Subjective ROS Limited/Unobtainable: No Constitutional: Reports: no symptoms HEENT: Repors: no symptoms Respiratory: Reports: no symptoms Allergies: Coded Allergies: No Known Allergies (Unverified , 08/07/18) Objective Last 24 Hour Vital Signs Date Time Temp Pulse Resp B/P (MAP) Pulse Ox O2 Delivery O2 Flow Rate FiO2 09/24/18 12:00 99.5 99 16 95/53 (67) 95 09/24/18 09:00 Simple Mask 15.0 09/24/18 08:00 98.4 101 18 105/55 (72) 95 09/24/18 04:00 98.3 98 15 97/51 (66) 98 09/24/18 00:00 99.5 105 18 101/56 (71) 98 09/23/18 21:00 Simple Mask 15.0 09/23/18 20:34 96 Venturi Mask 12.0 50 09/23/18 20:34 Venturi Mask 12.0 50 09/23/18 20:33 101 24 Venturi Mask 12.0 50 09/23/18 20:00 100.0 100 16 105/60 (75) 98 09/23/18 16:00 98.4 109 20 110/57 (74) 96 Intake and Output 09/23/18 09/24/18 19:00 07:00 Intake Total 205 ml 600 ml Output Total 500 ml 150 ml Balance -295 ml 450 ml Intake IV Total 205 ml 600 ml Output Urine Total 500 ml 150 ml Objective agonal breathing General Appearance: cachetic HEENT: normocephalic, atraumatic Respiratory/Chest: chest wall non-tender Cardiovascular: normal peripheral pulses Abdomen: normal bowel sounds, soft, non tender Neurologic/Psychiatric: manager trainee II-XII grossly normal Microbiology Date/Time Source Procedure Growth Status 09/21/18 18:00 Blood Blood Culture - Preliminary Klebsiella Pneumoniae - Mdr Resulted 09/21/18 17:45 Blood Blood Culture - Preliminary Klebsiella Pneumoniae - Mdr Resulted 09/21/18 18:11 Nasal Nares MRSA Culture - Final NO METHICILLIN RESISTANT STAPH AUREUS... Complete 09/21/18 18:11 Rectum VRE Culture - Final Enterococcus Faecalis - Vre Complete 09/21/18 18:11 Rectum - Final NO CARBAPENEM-RESISTANT ENTEROBACTERI... Complete Current Medications Medications (Trade) Dose Ordered Sig/Efraín Route PRN Reason Start Time Stop Time Status Last Admin Dose Admin Albuterol/ Ipratropium (Albuterol/ Ipratropium) 3 ml Q4H PRN HHN Shortness of Breath 09/22/18 13:00 09/27/18 12:59 Cefepime HCl 1 gm/ Dextrose 55 ml @ 110 mls/hr Q24H IVPB 09/23/18 13:30 09/29/18 13:29 09/24/18 13:18 Fentanyl (Duragesic) 1 patch EVERY 72 HOURS TDERMAL 09/25/18 13:00 09/29/18 12:59 Miscellaneous Medication (fentaNYL Destruction) 1 ea Q72H MISC 09/25/18 13:00 10/22/18 12:59 Morphine Sulfate (Morphine Sulfate) 4 mg Q4H PRN IVP Severe Pain (Pain Scale 7-10) 09/22/18 20:00 09/29/18 19:59 Multivitamins 10 ml/Dextrose 1,010 ml @ 50 mls/hr [id number] IV 09/23/18 16:00 10/23/18 15:59 09/24/18 12:16 Sodium Hypochlorite (Dakin's Quarter Strength) 1 applic DAILY TOPIC 09/22/18 13:00 10/22/18 12:59 09/24/18 09:08 Rosa Maria Palumbo MD Sep 24, 2018 14:23
--- NOTE | 2018-09-24 14:47 | NUR ---
Social Service Note SW met with patient's and discussed arrangements. Currently nothing in place however she has been speaking with a mortuary. SW informed that patient's body would go [facility] until arrangements can be made. Emotional support provided.
--- NOTE | 2018-09-24 15:57 | Internal Med Progress Note ---
Subjective Physician Name Shabbir Sales Attending Physician Shabbir Sales MD Current Medications Medications (Trade) Dose Ordered Sig/Efraín Route PRN Reason Start Time Stop Time Status Last Admin Dose Admin Albuterol/ Ipratropium (Albuterol/ Ipratropium) 3 ml Q4H PRN HHN Shortness of Breath 09/22/18 13:00 09/27/18 12:59 Cefepime HCl 1 gm/ Dextrose 55 ml @ 110 mls/hr Q24H IVPB 09/23/18 13:30 09/29/18 13:29 09/24/18 13:18 Fentanyl (Duragesic) 1 patch EVERY 72 HOURS TDERMAL 09/25/18 13:00 09/29/18 12:59 Miscellaneous Medication (fentaNYL Destruction) 1 ea Q72H MISC 09/25/18 13:00 10/22/18 12:59 Morphine Sulfate (Morphine Sulfate) 4 mg Q4H PRN IVP Severe Pain (Pain Scale 7-10) 09/22/18 20:00 09/29/18 19:59 Multivitamins 10 ml/Dextrose 1,010 ml @ 50 mls/hr [id number] IV 09/23/18 16:00 10/23/18 15:59 09/24/18 12:16 Sodium Hypochlorite (Dakin's Quarter Strength) 1 applic DAILY TOPIC 09/22/18 13:00 10/22/18 12:59 09/24/18 09:08 Allergies: Coded Allergies: No Known Allergies (Unverified , 08/07/18) Subjective not responsive, unable to communicate, at bedside. Objective Last Vital Signs Date Time Temp Pulse Resp B/P (MAP) Pulse Ox O2 Delivery O2 Flow Rate FiO2 09/24/18 12:00 99.5 99 16 95/53 (67) 95 09/24/18 09:00 Simple Mask 15.0 09/23/18 20:34 50 Microbiology Date/Time Source Procedure Growth Status 09/21/18 18:00 Blood Blood Culture - Preliminary Klebsiella Pneumoniae - Mdr Resulted 09/21/18 17:45 Blood Blood Culture - Preliminary Klebsiella Pneumoniae - Mdr Resulted 09/21/18 18:11 Nasal Nares MRSA Culture - Final NO METHICILLIN RESISTANT STAPH AUREUS... Complete 09/21/18 18:11 Rectum VRE Culture - Final Enterococcus Faecalis - Vre Complete 09/21/18 18:11 Rectum - Final NO CARBAPENEM-RESISTANT ENTEROBACTERI... Complete Intake and Output 09/23/18 09/24/18 18:59 06:59 Intake Total 205 ml 550 ml Output Total 500 ml 150 ml Balance -295 ml 400 ml Intake IV Total 205 ml 550 ml Output Urine Total 500 ml 150 ml Objective General: No acute distress, not responsive, open eyes HEENT: NCAT, sclera anicteric, PERRL. Neck: Supple, no significant jugular venous distention, Lungs: shallow inspiratory effort, decrease air at base, no Wheeze or Rales. Heart: Regular rate and rhythm, normal S1/S2, no murmurs. Abdomen: soft, nontender, nondistended. Normoactive bowel sounds. Extremities: No Cyanosis , clubbing or edema. Left Leg gangrene. Neuro: not responsive, unable to F/U with commands. Assessment/Plan Assessment/Plan 1. Generalized weakness. 2. Adenocarcinoma of the left upper lobe of the lung with metastases. 3. Left leg gangrene. 4. Thrombo-occlusion of the left leg. 5. Coronary artery disease. 6. Diabetes, type 2. 7. Hypertension. 8. Benign prostatic hypertrophy. Plan: comfort care Pain medication DC all antibiotic discuss with at bedside Shabbir Sales MD Sep 24, 2018 15:57
[2018-09-24 16:00] VITALS: BP 91/52
[2018-09-24] MEDS ORDERED: AMIKACIN IV SCH (16:00)
[2018-09-24] MEDS ORDERED: NS IV SCH (16:00)
[2018-09-24 20:00] VITALS: BP 102/63
--- NOTE | 2018-09-24 20:00 | NUR ---
NURSE NOTES: Received patient in bed. A/O x 0. On simple mask with o2 sat at 95%. R wrist 18G running banana bag. All wound dressings intact. Bed in lowest position, locked, alarms on. Call light in reach. by bedside.
--- NOTE | 2018-09-24 20:09 | NUR ---
HAND-OFF: Report given to PRAVIN ÁLVAREZ.
[2018-09-25] VITALS: BP 102/56
--- NOTE | 2018-09-25 01:15 | Progress Note ---
DATE: 09/24/2018 NOTE: "POOR AUDIO QUALITY" SUBJECTIVE: The patient has been is having waxing and waning consciousness. More lethargic. No agitation. He is on Remeron. The is at beside, who was discussed the patient's case at length. The patient is more accepting today. He was tearful. MENTAL STATUS EXAMINATION: The patient is lethargic, waxing and waning consciousness, today. Mood is neutral. Affect is flat. Eyes closed. Thought process, there is paucity of thought content. Thought content, no suicidal or homicidal ideations. ASSESSMENT: Encephalopathy due to toxin. PLAN: 1. No new medication. 2. Good emotional support was provided to the . 3. We will continue to follow and adjust the medications. Kellie Russell M.D. DR: Jn JOB#: [id number] CC:
[2018-09-25 04:00] VITALS: BP 95/61
--- NOTE | 2018-09-25 07:45 | NUR ---
HAND-OFF: Report given to PRAVIN Nicholson.
[2018-09-25 08:00] VITALS: BP 118/58
--- NOTE | 2018-09-25 08:17 | NUR ---
NURSE NOTES: Patient eyes are open,patient nods his head when spoken to,o2 on by simple mask,respirations are unlabored.Cummins catheter is in place with a scant amount of yellow urine noted .IV fluids infusing as ordered.Bed alarm is on,patient spouse at bedside.
--- NOTE | 2018-09-25 08:47 | NUR ---
RD ASSESSMENT & RECOMMENDATIONS SEE CARE ACTIVITY FOR COMPLETE ASSESSMENT DAILY ESTIMATED NEEDS: Needs based on Severely underweight, cancer, wounds/ 45kg 35-40 kcals/kg 4231-3103 total kcals 1.5-2.0 g protein/kg 68-90 g total protein 25-35 mL/kg 6705-4035 total fluid mLs NUTRITION DIAGNOSIS: * Increased kcal/prot intake R/T wound healing, catabolic dx, for wt gain as evidenced by pt w/ L hip stage 4 wound + multiple additional wounds w/ pending eval, hx of metastatic lung cancer, with mets to bone and brain, and severely underweight w/ BMI 115.1, @ 64% IBW, pt now made NPO due to high aspiration risk, comfort measures. CURRENT DIET:NPO, may have thickened liquid for comfort PO DIET RECOMMENDATIONS: Per MD, NPO, may have thickened liquid for comfort ADDITIONAL RECOMMENDATIONS: * Monitor POC- comfort care noted at this time . . . . . .
[2018-09-25] MEDS: D5W IV SCH (09:24)
[2018-09-25] MEDS: MULTIVITAMIN IV SCH (09:24)
[2018-09-25] MEDS ORDERED: fentaNYL Destruction MISC SCH (11:59)
[2018-09-25 12:00] VITALS: BP 104/59
[2018-09-25] MEDS: Dakin's 0.125% Soln (Quarter Strength) 16oz TOPIC SCH (12:31)
[2018-09-25] MEDS: fentaNYL Destruction MISC SCH (13:00)
--- NOTE | 2018-09-25 14:46 | General Surgery Progress Note ---
General Surgery-Progress Note Subjective Additional Comments no acute events. unchanged. Objective Last 24 Hour Vital Signs Date Time Temp Pulse Resp B/P (MAP) Pulse Ox O2 Delivery O2 Flow Rate FiO2 09/25/18 12:00 97.3 95 20 104/59 (74) 95 09/25/18 09:39 Simple Mask 15.0 09/25/18 08:00 98.1 18 118/58 (78) 100 09/25/18 04:00 98.1 89 16 95/61 (72) 100 09/25/18 00:00 98.0 89 18 102/56 (71) 97 09/24/18 21:00 Simple Mask 15.0 09/24/18 20:33 Venturi Mask 12.0 50 09/24/18 20:33 97 Venturi Mask 12.0 50 09/24/18 20:33 101 21 Venturi Mask 12.0 50 09/24/18 20:00 98.2 95 18 102/63 (76) 98 09/24/18 16:00 98.8 97 16 91/52 (65) 98 I&O Intake and Output 09/24/18 09/25/18 19:00 07:00 Intake Total 355 ml 600 ml Output Total 600 ml Balance -245 ml 600 ml Intake IV Total 355 ml 600 ml Output Urine Total 600 ml # Voids 2 2 Dressing: other Wound: other Drains: other Cardiovascular: RSR Respiratory: decreased breath sounds Abdomen: soft, present bowel sounds Extremities: other Plan Problems: (1) Gangrene of lower extremity (2) Decubitus ulcer of left hip, stage 4 (3) Severe protein-calorie malnutrition (4) Sepsis Assessment & Plan: very ill septic left leg gangrene from arterial clot/ischemia groin/inguinal wound respiratory depression inability to tolerate po intake multiple problems which are complex and interrelated. does not want tube feeds or feeing tube does not want to take risk of aspiration with diet only left with keeping him NPO on hospice / end of life comfort care has been on bed bug exterminator IV Abx for infection very ill and significantly declined since last visit. he is deteriorating in all aspects -comfort care measures no role for debridement would not tolerate surgery or amputation Alli Parada Sep 25, 2018 14:46
--- NOTE | 2018-09-25 15:49 | Internal Med Progress Note ---
Subjective Date of Service: Sep 25, 2018 Physician Name Hudson Franco Attending Physician Shabbir Sales MD Current Medications Medications (Trade) Dose Ordered Sig/Efraín Route PRN Reason Start Time Stop Time Status Last Admin Dose Admin Albuterol/ Ipratropium (Albuterol/ Ipratropium) 3 ml Q4H PRN HHN Shortness of Breath 09/22/18 13:00 09/27/18 12:59 Fentanyl (Duragesic) 1 patch EVERY 72 HOURS TDERMAL 09/25/18 13:00 09/29/18 12:59 09/25/18 13:53 Miscellaneous Medication (fentaNYL Destruction) 1 ea Q72H MISC 09/25/18 13:00 10/22/18 12:59 09/25/18 13:00 Morphine Sulfate (Morphine Sulfate) 4 mg Q4H PRN IVP Severe Pain (Pain Scale 7-10) 09/22/18 20:00 09/29/18 19:59 Multivitamins 10 ml/Dextrose 1,010 ml @ 50 mls/hr [id number] IV 09/23/18 16:00 10/23/18 15:59 09/25/18 09:24 Sodium Hypochlorite (Dakin's Quarter Strength) 1 applic DAILY TOPIC 09/22/18 13:00 10/22/18 12:59 09/25/18 12:31 Allergies: Coded Allergies: No Known Allergies (Unverified , 08/07/18) ROS Limited/Unobtainable: Yes Subjective 68 YO M admitted with stage IV adenocarcinoma of lung and generalized weakness. Cover for Int Med-Dr Sales Objective Last Vital Signs Date Time Temp Pulse Resp B/P (MAP) Pulse Ox O2 Delivery O2 Flow Rate FiO2 09/25/18 12:00 97.3 95 20 104/59 (74) 95 09/25/18 09:39 Simple Mask 15.0 09/24/18 20:33 50 Intake and Output 09/24/18 09/25/18 19:00 07:00 Intake Total 355 ml 600 ml Output Total 600 ml Balance -245 ml 600 ml Intake IV Total 355 ml 600 ml Output Urine Total 600 ml # Voids 2 2 Objective PHYSICAL EXAMINATION: GENERALLY: The patient is thin-appearing white male, who is somewhat lethargic. HEENT: Eyes, pupils equal responsive to light and accommodation. Extraocular movements are intact. NECK: Supple. No lymphadenopathy. CHEST: Decreased breath sounds on the left. Otherwise, clear to auscultation without wheezes or rales. CARDIOVASCULAR: Regular rhythm and rate. S1 and S2 normal without murmurs, rubs, or gallops. ABDOMEN: Soft, nontender, nondistended. Positive bowel sounds. No evidence of hepatosplenomegaly. Currently, no rebound or guarding noted. EXTREMITIES: Negative for clubbing, cyanosis, or edema. NEUROLOGIC: Unable to assess. Assessment/Plan Problem List: (1) CAD (coronary artery disease) (2) Diabetes mellitus type II, controlled (3) Hypertension (4) BPH (benign prostatic hyperplasia) (5) Decubitus ulcer, stage IV (6) DNR (do not resuscitate) (7) Lung cancer metastatic to brain (8) Gangrene of lower extremity Assessment & Plan: D/C antibiotics (9) Severe protein-calorie malnutrition Assessment/Plan End of life care-see pulmonary note. Hudson Franco MD Sep 25, 2018 15:48
[2018-09-25 16:00] VITALS: BP 110/52
--- NOTE | 2018-09-25 19:19 | NUR ---
NURSE NOTES: DR Franco here to see patient today and updated that patient had scant amount of urine noted ,patient has on a condom catheter,no new orders given.Patient turned and position,suctions,oral care given,dressing changed done as ordered.Bed alarm on. Patient spouse remains at bedside.
--- NOTE | 2018-09-25 19:51 | NUR ---
HAND-OFF: Report given to MIKE COSTELLO.
--- NOTE | 2018-09-25 19:52 | NUR ---
NURSE NOTES: Received patient in bed. A&OX0. IV site patent and intact. at bedside. Bed in lowest position. Call light within reach. Will continue to monitor.
[2018-09-25 20:00] VITALS: BP 95/55
--- NOTE | 2018-09-25 21:31 | Pulmonology Progress Note ---
Assessment/Plan Problems: (1) End of life care (2) Acute respiratory failure (3) At high risk for aspiration (4) Lung cancer metastatic to brain (5) Gangrene of lower extremity (6) Decubitus ulcer of left hip, stage 4 (7) DNR (do not resuscitate) (8) Severe protein-calorie malnutrition Assessment/Plan moribund more comfortable sleeping comfortably insisting in getting iv fluid prn morphine Subjective Allergies: Coded Allergies: No Known Allergies (Unverified , 08/07/18) Objective Last 24 Hour Vital Signs Date Time Temp Pulse Resp B/P (MAP) Pulse Ox O2 Delivery O2 Flow Rate FiO2 09/25/18 20:00 98.0 94 32 95/55 (68) 94 09/25/18 19:45 97 20 Venturi Mask 12.0 50 09/25/18 19:45 Venturi Mask 12.0 50 09/25/18 19:45 97 Venturi Mask 12.0 50 09/25/18 16:00 97.2 92 20 110/52 (71) 92 09/25/18 12:00 97.3 95 20 104/59 (74) 95 09/25/18 09:39 Simple Mask 15.0 09/25/18 08:00 98.1 18 118/58 (78) 100 09/25/18 04:00 98.1 89 16 95/61 (72) 100 09/25/18 00:00 98.0 89 18 102/56 (71) 97 Intake and Output 09/24/18 09/25/18 18:59 06:59 Intake Total 405 ml 600 ml Output Total 600 ml Balance -195 ml 600 ml Intake IV Total 405 ml 600 ml Output Urine Total 600 ml # Voids 2 2 Objective agonal breathing Current Medications Medications (Trade) Dose Ordered Sig/Efraín Route PRN Reason Start Time Stop Time Status Last Admin Dose Admin Albuterol/ Ipratropium (Albuterol/ Ipratropium) 3 ml Q4H PRN HHN Shortness of Breath 09/22/18 13:00 09/27/18 12:59 Fentanyl (Duragesic) 1 patch EVERY 72 HOURS TDERMAL 09/25/18 13:00 09/29/18 12:59 09/25/18 13:53 Miscellaneous Medication (fentaNYL Destruction) 1 ea Q72H MISC 09/25/18 13:00 2/8/19 12:59 09/25/18 13:00 Morphine Sulfate (Morphine Sulfate) 4 mg Q4H PRN IVP Severe Pain (Pain Scale 7-10) 09/22/18 20:00 09/29/18 19:59 Multivitamins 10 ml/Dextrose 1,010 ml @ 50 mls/hr [id number] IV 09/23/18 16:00 10/23/18 15:59 09/25/18 09:24 Sodium Hypochlorite (Dakin's Quarter Strength) 1 applic DAILY TOPIC 09/22/18 13:00 10/22/18 12:59 09/25/18 12:31 Rosa Maria Palumbo MD Sep 25, 2018 21:31
--- NOTE | 2018-09-25 23:33 | General Progress Note ---
Assessment/Plan Problem List: (1) Lung cancer metastatic to brain ICD Codes: C34.90 - Malignant neoplasm of unspecified part of unspecified bronchus or lung; C79.31 - Secondary malignant neoplasm of brain SNOMED: 83924698, [id number] (2) encephalopathy due to toxin Assessment/Plan remeron 15mg qhs the pt lacks capacity and the is the decision maker recommend palliative care Subjective Allergies: Coded Allergies: No Known Allergies (Unverified , 08/07/18) Subjective the pt was lethargic today and was moaning. t Objective Last 24 Hour Vital Signs Date Time Temp Pulse Resp B/P (MAP) Pulse Ox O2 Delivery O2 Flow Rate FiO2 09/25/18 20:00 98.0 94 32 95/55 (68) 94 09/25/18 19:45 97 20 Venturi Mask 12.0 50 09/25/18 19:45 Venturi Mask 12.0 50 09/25/18 19:45 97 Venturi Mask 12.0 50 09/25/18 16:00 97.2 92 20 110/52 (71) 92 09/25/18 12:00 97.3 95 20 104/59 (74) 95 09/25/18 09:39 Simple Mask 15.0 09/25/18 08:00 98.1 18 118/58 (78) 100 09/25/18 04:00 98.1 89 16 95/61 (72) 100 09/25/18 00:00 98.0 89 18 102/56 (71) 97 Intake and Output 09/24/18 09/25/18 18:59 06:59 Intake Total 405 ml 600 ml Output Total 600 ml Balance -195 ml 600 ml Intake IV Total 405 ml 600 ml Output Urine Total 600 ml # Voids 2 2 Height (Feet): 5 Height (Inches): 4.00 Weight (Pounds): 105 General Appearance: lethargic, confused Kellie Russell MD Sep 25, 2018 23:33
[2018-09-26] VITALS (7 sets, daily range): BP systolic 85–102; BP diastolic 49–67
[2018-09-26] MEDS: MULTIVITAMIN IV SCH (04:41)
[2018-09-26] MEDS: D5W IV SCH (04:41)
--- NOTE | 2018-09-26 07:20 | NUR ---
HAND-OFF: Report given to Lyn COSTELLO.
--- NOTE | 2018-09-26 08:00 | NUR ---
NURSE NOTES: Eyes closed,patient response to touch,respirations unlabored,02 on by mask.condom catheter in place,wihit small amount of francisco color urine noted. Spouse at bed side,bed alarm on,skin care given,turned and position,oral care given.
--- NOTE | 2018-09-26 09:05 | General Surgery Progress Note ---
General Surgery-Progress Note Subjective Additional Comments seems uncomfortable with moaning today. wounds deteriorating daily. left leg ischemia moving proximal Objective Last 24 Hour Vital Signs Date Time Temp Pulse Resp B/P (MAP) Pulse Ox O2 Delivery O2 Flow Rate FiO2 09/26/18 07:33 98 22 Venturi Mask 12.0 50 09/26/18 07:33 Venturi Mask 12.0 50 09/26/18 07:33 98 Venturi Mask 12.0 50 09/26/18 04:00 97.9 96 24 99/60 (73) 98 09/26/18 00:00 97.5 97 32 94/58 (70) 99 09/25/18 21:00 Simple Mask 15.0 09/25/18 20:00 98.0 94 32 95/55 (68) 94 09/25/18 19:45 97 20 Venturi Mask 12.0 50 09/25/18 19:45 Venturi Mask 12.0 50 09/25/18 19:45 97 Venturi Mask 12.0 50 09/25/18 16:00 97.2 92 20 110/52 (71) 92 09/25/18 12:00 97.3 95 20 104/59 (74) 95 09/25/18 09:39 Simple Mask 15.0 I&O Intake and Output 09/25/18 09/26/18 19:00 07:00 Intake Total 552 ml 550 ml Output Total 275 ml Balance 552 ml 275 ml Intake IV Total 552 ml 550 ml Output Urine Total 275 ml Dressing: other Wound: other Drains: other Respiratory: decreased breath sounds Abdomen: soft, present bowel sounds Extremities: other Plan Problems: (1) Gangrene of lower extremity (2) Decubitus ulcer of left hip, stage 4 (3) Severe protein-calorie malnutrition (4) Sepsis Assessment & Plan: very ill septic left leg gangrene from arterial clot/ischemia groin/inguinal wound respiratory depression inability to tolerate po intake multiple problems which are complex and interrelated. does not want tube feeds or feeing tube does not want to take risk of aspiration with diet only left with keeping him NPO on hospice / end of life comfort care has been on bariatric coordinator IV Abx for infection very ill and significantly declined since last visit. he is deteriorating in all aspects -comfort care measures -discussed with . he is declining fast and uncomfortable. discussed morphine gtt. no role for debridement would not tolerate surgery or amputation Alli Parada Sep 26, 2018 09:05
[2018-09-26] MEDS: Dakin's 0.125% Soln (Quarter Strength) 16oz TOPIC SCH (10:43)
--- NOTE | 2018-09-26 15:46 | Internal Med Progress Note ---
Subjective Date of Service: Sep 26, 2018 Physician Name Hudson Franco Attending Physician Shabbir Sales MD Current Medications Medications (Trade) Dose Ordered Sig/Efraín Route PRN Reason Start Time Stop Time Status Last Admin Dose Admin Albuterol/ Ipratropium (Albuterol/ Ipratropium) 3 ml Q4H PRN HHN Shortness of Breath 09/22/18 13:00 09/27/18 12:59 Fentanyl (Duragesic) 1 patch EVERY 72 HOURS TDERMAL 09/25/18 13:00 09/29/18 12:59 09/25/18 13:53 Miscellaneous Medication (fentaNYL Destruction) 1 ea Q72H MISC 09/25/18 13:00 10/22/18 12:59 09/25/18 13:00 Morphine Sulfate (Morphine Sulfate) 4 mg Q4H PRN IVP Severe Pain (Pain Scale 7-10) 09/22/18 20:00 09/29/18 19:59 Multivitamins 10 ml/Dextrose 1,010 ml @ 50 mls/hr [id number] IV 09/23/18 16:00 10/23/18 15:59 09/26/18 04:41 Sodium Hypochlorite (Dakin's Quarter Strength) 1 applic DAILY TOPIC 09/22/18 13:00 10/22/18 12:59 09/26/18 10:43 Allergies: Coded Allergies: No Known Allergies (Unverified , 08/07/18) ROS Limited/Unobtainable: Yes Subjective 68 YO M admitted with stage IV adenocarcinoma of lung and generalized weakness. Cover for Int Med-Dr Sales Objective Last Vital Signs Date Time Temp Pulse Resp B/P (MAP) Pulse Ox O2 Delivery O2 Flow Rate FiO2 09/26/18 12:00 97.3 92 17 102/63 (76) 93 09/26/18 09:00 Simple Mask 15.0 09/26/18 07:33 50 Intake and Output 09/25/18 09/26/18 19:00 07:00 Intake Total 552 ml 550 ml Output Total 275 ml Balance 552 ml 275 ml Intake IV Total 552 ml 550 ml Output Urine Total 275 ml Objective PHYSICAL EXAMINATION: GENERALLY: The patient is thin-appearing white male, who is somewhat lethargic. HEENT: Eyes, pupils equal responsive to light and accommodation. Extraocular movements are intact. NECK: Supple. No lymphadenopathy. CHEST: Decreased breath sounds on the left. Otherwise, clear to auscultation without wheezes or rales. CARDIOVASCULAR: Regular rhythm and rate. S1 and S2 normal without murmurs, rubs, or gallops. ABDOMEN: Soft, nontender, nondistended. Positive bowel sounds. No evidence of hepatosplenomegaly. Currently, no rebound or guarding noted. EXTREMITIES: Negative for clubbing, cyanosis, or edema. NEUROLOGIC: Unable to assess. Assessment/Plan Problem List: (1) CAD (coronary artery disease) (2) Diabetes mellitus type II, controlled (3) Hypertension (4) BPH (benign prostatic hyperplasia) (5) Decubitus ulcer, stage IV (6) DNR (do not resuscitate) (7) Lung cancer metastatic to brain (8) Gangrene of lower extremity Assessment & Plan: D/C antibiotics (9) Severe protein-calorie malnutrition Assessment/Plan End of life care-see pulmonary note. Hudson Franco MD Sep 26, 2018 15:46
--- NOTE | 2018-09-26 15:55 | Pulmonology Progress Note ---
Assessment/Plan Problems: (1) End of life care (2) Acute respiratory failure (3) At high risk for aspiration (4) Lung cancer metastatic to brain (5) Gangrene of lower extremity (6) Decubitus ulcer of left hip, stage 4 (7) DNR (do not resuscitate) (8) Severe protein-calorie malnutrition Assessment/Plan moribund more comfortable sleeping comfortably insisting in getting iv fluid prn morphine Subjective Allergies: Coded Allergies: No Known Allergies (Unverified , 08/07/18) Objective Last 24 Hour Vital Signs Date Time Temp Pulse Resp B/P (MAP) Pulse Ox O2 Delivery O2 Flow Rate FiO2 09/26/18 12:00 97.3 92 17 102/63 (76) 93 09/26/18 09:00 Simple Mask 15.0 09/26/18 08:00 97.7 94 17 89/53 (65) 99 09/26/18 07:33 98 22 Venturi Mask 12.0 50 09/26/18 07:33 Venturi Mask 12.0 50 09/26/18 07:33 98 Venturi Mask 12.0 50 09/26/18 04:00 97.9 96 24 99/60 (73) 98 09/26/18 00:00 97.5 97 32 94/58 (70) 99 09/25/18 21:00 Simple Mask 15.0 09/25/18 20:00 98.0 94 32 95/55 (68) 94 09/25/18 19:45 97 20 Venturi Mask 12.0 50 09/25/18 19:45 Venturi Mask 12.0 50 09/25/18 19:45 97 Venturi Mask 12.0 50 09/25/18 16:00 97.2 92 20 110/52 (71) 92 Intake and Output 09/25/18 09/26/18 19:00 07:00 Intake Total 552 ml 550 ml Output Total 275 ml Balance 552 ml 275 ml Intake IV Total 552 ml 550 ml Output Urine Total 275 ml Objective agonal breathing Current Medications Medications (Trade) Dose Ordered Sig/Efraín Route PRN Reason Start Time Stop Time Status Last Admin Dose Admin Albuterol/ Ipratropium (Albuterol/ Ipratropium) 3 ml Q4H PRN HHN Shortness of Breath 09/22/18 13:00 09/27/18 12:59 Fentanyl (Duragesic) 1 patch EVERY 72 HOURS TDERMAL 09/25/18 13:00 09/29/18 12:59 09/25/18 13:53 Miscellaneous Medication (fentaNYL Destruction) 1 ea Q72H MISC 09/25/18 13:00 10/22/18 12:59 09/25/18 13:00 Morphine Sulfate (Morphine Sulfate) 4 mg Q4H PRN IVP Severe Pain (Pain Scale 7-10) 09/22/18 20:00 09/29/18 19:59 Multivitamins 10 ml/Dextrose 1,010 ml @ 50 mls/hr [id number] IV 09/23/18 16:00 10/23/18 15:59 09/26/18 04:41 Sodium Hypochlorite (Dakin's Quarter Strength) 1 applic DAILY TOPIC 09/22/18 13:00 10/22/18 12:59 09/26/18 10:43 Rosa Maria Palumbo MD Sep 26, 2018 15:55
--- NOTE | 2018-09-26 18:30 | NUR ---
NURSE NOTES: Skin care given ,position for comfort,IV continue to infuse.Spouse at bed.Bed alarm on.
--- NOTE | 2018-09-26 18:40 | NUR ---
HAND-OFF: Report given to Debbi COSTELLO.
--- NOTE | 2018-09-26 19:45 | NUR ---
NURSE NOTES: Received patient in bed. Eyes closed, responses to pain. On simple mask with O2sat at 95%, unlabored. IV intact, patent on R wrist running fluid. Condom cath draining francisco color urine. Bed in lowest position, locked, alarms on. Call light in reach. On comfort measure, position changed, by bedside.
--- NOTE | 2018-09-26 21:46 | General Progress Note ---
Assessment/Plan Problem List: (1) Lung cancer metastatic to brain ICD Codes: C34.90 - Malignant neoplasm of unspecified part of unspecified bronchus or lung; C79.31 - Secondary malignant neoplasm of brain SNOMED: 56060683, 91314420 (2) encephalopathy due to toxin Status: unchanged Assessment/Plan remeron 15mg qhs the pt lacks capacity and the is the decision maker palliative care Subjective Allergies: Coded Allergies: No Known Allergies (Unverified , 08/07/18) Subjective the pt was lethargic today and was moaning. the pt is deteriorating and uncomfortable the is reluctant to morphine drip/ Objective Last 24 Hour Vital Signs Date Time Temp Pulse Resp B/P (MAP) Pulse Ox O2 Delivery O2 Flow Rate FiO2 09/26/18 20:52 Venturi Mask 12.0 50 09/26/18 20:52 98 Venturi Mask 12.0 50 09/26/18 20:52 91 22 Venturi Mask 12.0 50 09/26/18 16:00 97.2 90 16 90/51 (64) 99 09/26/18 12:00 97.3 92 17 102/63 (76) 93 09/26/18 09:00 Simple Mask 15.0 09/26/18 08:00 97.7 94 17 89/53 (65) 99 09/26/18 07:33 98 22 Venturi Mask 12.0 50 09/26/18 07:33 Venturi Mask 12.0 50 09/26/18 07:33 98 Venturi Mask 12.0 50 09/26/18 04:00 97.9 96 24 99/60 (73) 98 09/26/18 00:00 97.5 97 32 94/58 (70) 99 Intake and Output 09/25/18 09/26/18 18:59 06:59 Intake Total 502 ml 600 ml Output Total 275 ml Balance 502 ml 325 ml Intake IV Total 502 ml 600 ml Output Urine Total 275 ml Height (Feet): 5 Height (Inches): 4.00 Weight (Pounds): 105 General Appearance: lethargic, confused, cachetic Kellie Russell MD Sep 26, 2018 21:46
[2018-09-27] VITALS (7 sets, daily range): BP systolic 76–97; BP diastolic 44–61
[2018-09-27] MEDS: D5W IV SCH ×2 (00:46→20:59)
[2018-09-27] MEDS: MULTIVITAMIN IV SCH ×2 (00:46→20:59)
--- NOTE | 2018-09-27 04:00 | NUR ---
NURSE NOTES: verbalized concerns regarding recommended morphine drip from MD. stated, "I don't want anymore pain med. he's sleeping 24 hour. Moaning for short while only when changing position and dressing."
--- NOTE | 2018-09-27 07:50 | NUR ---
NURSE NOTES: Received patient on bed, asleep. IV site intact and patent. Bed in low and locked position, call light within reach. No signs of respiratory distress. Room board updated, will continue to monitor.
--- NOTE | 2018-09-27 07:59 | NUR ---
HAND-OFF: Report given to PRAVIN Venegas.
[2018-09-27] MEDS: Dakin's 0.125% Soln (Quarter Strength) 16oz TOPIC SCH (10:00)
--- NOTE | 2018-09-27 11:03 | General Surgery Progress Note ---
General Surgery-Progress Note Subjective Additional Comments seems agitated and uncomfortable at times. pain with dressings pain with movement. pain at baseline Objective Last 24 Hour Vital Signs Date Time Temp Pulse Resp B/P (MAP) Pulse Ox O2 Delivery O2 Flow Rate FiO2 09/27/18 08:00 97.4 88 18 97/61 (73) 98 09/27/18 07:45 80 Venturi Mask 12.0 50 09/27/18 07:45 Venturi Mask 12.0 50 09/27/18 07:45 80 20 Venturi Mask 12.0 50 09/27/18 04:00 97.2 90 18 94/59 (71) 97 09/27/18 00:00 97.0 92 17 81/50 (60) 97 09/26/18 22:00 98.0 92 17 92/67 (75) 97 09/26/18 21:00 Simple Mask 15.0 09/26/18 20:52 Venturi Mask 12.0 50 09/26/18 20:52 98 Venturi Mask 12.0 50 09/26/18 20:52 91 22 Venturi Mask 12.0 50 09/26/18 20:00 97.0 97 16 85/49 (61) 99 09/26/18 16:00 97.2 90 16 90/51 (64) 99 09/26/18 12:00 97.3 92 17 102/63 (76) 93 I&O Intake and Output 09/26/18 09/27/18 19:00 07:00 Intake Total 750 ml 550 ml Output Total 100 ml 400 ml Balance 650 ml 150 ml Intake IV Total 750 ml 550 ml Output Urine Total 100 ml 400 ml # Bowel Movements 1 1 Dressing: saturated Wound: other Drains: none Cardiovascular: RSR Respiratory: decreased breath sounds Abdomen: soft, present bowel sounds Extremities: other Plan Problems: (1) Gangrene of lower extremity (2) Decubitus ulcer of left hip, stage 4 (3) Severe protein-calorie malnutrition (4) Sepsis Assessment & Plan: very ill septic left leg gangrene from arterial clot/ischemia groin/inguinal wound respiratory depression inability to tolerate po intake multiple problems which are complex and interrelated. does not want tube feeds or feeing tube does not want to take risk of aspiration with diet only left with keeping him NPO on hospice / end of life comfort care has been on care home IV Abx for infection very ill and significantly declined since last visit. he is deteriorating in all aspects -comfort care measures -discussed with . he is declining fast and uncomfortable. discussed morphine gtt. -start morphine gtt no role for debridement would not tolerate surgery or amputation Alli Parada Sep 27, 2018 11:03
--- NOTE | 2018-09-27 18:36 | Internal Med Progress Note ---
Subjective Date of Service: Sep 27, 2018 Physician Name Hudson Franco Attending Physician Shabbir Sales MD Current Medications Medications (Trade) Dose Ordered Sig/Efraín Route PRN Reason Start Time Stop Time Status Last Admin Dose Admin Fentanyl (Duragesic) 1 patch EVERY 72 HOURS TDERMAL 09/25/18 13:00 09/29/18 12:59 09/25/18 13:53 Miscellaneous Medication (fentaNYL Destruction) 1 ea Q72H MISC 09/25/18 13:00 10/22/18 12:59 09/25/18 13:00 Morphine Sulfate (Morphine Sulfate) 4 mg Q4H PRN IVP Severe Pain (Pain Scale 7-10) 09/22/18 20:00 09/29/18 19:59 Multivitamins 10 ml/Dextrose 1,010 ml @ 50 mls/hr [id number] IV 09/23/18 16:00 10/23/18 15:59 09/27/18 00:46 Sodium Hypochlorite (Dakin's Quarter Strength) 1 applic DAILY TOPIC 09/22/18 13:00 10/22/18 12:59 09/27/18 10:00 Allergies: Coded Allergies: No Known Allergies (Unverified , 08/07/18) ROS Limited/Unobtainable: Yes Subjective 68 YO M admitted with stage IV adenocarcinoma of lung and generalized weakness. Cover for Int Med-Dr Sales Objective Last Vital Signs Date Time Temp Pulse Resp B/P (MAP) Pulse Ox O2 Delivery O2 Flow Rate FiO2 09/27/18 16:00 96.0 90 16 76/53 (61) 90 09/27/18 09:00 Simple Mask 10.0 09/27/18 07:45 50 Intake and Output 09/26/18 09/27/18 19:00 07:00 Intake Total 750 ml 550 ml Output Total 100 ml 400 ml Balance 650 ml 150 ml Intake IV Total 750 ml 550 ml Output Urine Total 100 ml 400 ml # Bowel Movements 1 1 Objective PHYSICAL EXAMINATION: GENERALLY: The patient is thin-appearing white male, who is somewhat lethargic. HEENT: Eyes, pupils equal responsive to light and accommodation. Extraocular movements are intact. NECK: Supple. No lymphadenopathy. CHEST: Decreased breath sounds on the left. Otherwise, clear to auscultation without wheezes or rales. CARDIOVASCULAR: Regular rhythm and rate. S1 and S2 normal without murmurs, rubs, or gallops. ABDOMEN: Soft, nontender, nondistended. Positive bowel sounds. No evidence of hepatosplenomegaly. Currently, no rebound or guarding noted. EXTREMITIES: Negative for clubbing, cyanosis, or edema. NEUROLOGIC: Unable to assess. Assessment/Plan Problem List: (1) CAD (coronary artery disease) (2) Diabetes mellitus type II, controlled (3) Hypertension (4) BPH (benign prostatic hyperplasia) (5) Decubitus ulcer, stage IV (6) DNR (do not resuscitate) (7) Lung cancer metastatic to brain (8) Gangrene of lower extremity Assessment & Plan: D/C antibiotics (9) Severe protein-calorie malnutrition Assessment/Plan End of life care-see pulmonary note. Discussed with at bedside Hudson Franco MD Sep 27, 2018 18:36
--- NOTE | 2018-09-27 19:26 | NUR ---
HAND-OFF: Report given to PRAVIN Swan.
--- NOTE | 2018-09-27 19:30 | NUR ---
NURSE NOTES: Received patient in bed, family is by bed side, patient is DNR/DNI, comfort measures, no acute distress noted, patient is bedbound, nonverbal, multiple wounds, dressings were changed during am shift. Patient is NPO. Bed is in low position, locked and alarm is on, call light is within reach. Will continue to monitor for comfort and safety.
--- NOTE | 2018-09-27 21:44 | Pulmonology Progress Note ---
Assessment/Plan Problems: (1) End of life care (2) Acute respiratory failure (3) At high risk for aspiration (4) Lung cancer metastatic to brain (5) Gangrene of lower extremity (6) Decubitus ulcer of left hip, stage 4 (7) DNR (do not resuscitate) (8) Severe protein-calorie malnutrition Assessment/Plan moribund more comfortable sleeping comfortably insisting in getting iv fluid prn morphine Subjective Allergies: Coded Allergies: No Known Allergies (Unverified , 08/07/18) Objective Last 24 Hour Vital Signs Date Time Temp Pulse Resp B/P (MAP) Pulse Ox O2 Delivery O2 Flow Rate FiO2 09/27/18 20:56 97.7 83 17 78/44 (55) 09/27/18 16:00 96.0 90 16 76/53 (61) 90 09/27/18 12:00 97.3 83 16 82/49 (60) 93 09/27/18 10:33 87 81/49 (60) 93 09/27/18 09:00 Simple Mask 10.0 09/27/18 08:00 97.4 88 18 97/61 (73) 98 09/27/18 07:45 80 Venturi Mask 12.0 50 09/27/18 07:45 Venturi Mask 12.0 50 09/27/18 07:45 80 20 Venturi Mask 12.0 50 09/27/18 04:00 97.2 90 18 94/59 (71) 97 09/27/18 00:00 97.0 92 17 81/50 (60) 97 09/26/18 22:00 98.0 92 17 92/67 (75) 97 Intake and Output 09/26/18 09/27/18 19:00 07:00 Intake Total 750 ml 550 ml Output Total 100 ml 400 ml Balance 650 ml 150 ml Intake IV Total 750 ml 550 ml Output Urine Total 100 ml 400 ml # Bowel Movements 1 1 Objective agonal breathing Current Medications Medications (Trade) Dose Ordered Sig/Efraín Route PRN Reason Start Time Stop Time Status Last Admin Dose Admin Fentanyl (Duragesic) 1 patch EVERY 72 HOURS TDERMAL 09/25/18 13:00 09/29/18 12:59 09/25/18 13:53 Miscellaneous Medication (fentaNYL Destruction) 1 ea Q72H MISC 09/25/18 13:00 10/22/18 12:59 1/12/19 13:00 Morphine Sulfate (Morphine Sulfate) 4 mg Q4H PRN IVP Severe Pain (Pain Scale 7-10) 09/22/18 20:00 09/29/18 19:59 Multivitamins 10 ml/Dextrose 1,010 ml @ 50 mls/hr [id number] IV 09/23/18 16:00 10/23/18 15:59 09/27/18 20:59 Sodium Hypochlorite (Dakin's Quarter Strength) 1 applic DAILY TOPIC 09/22/18 13:00 10/22/18 12:59 09/27/18 10:00 Rosa Maria Palumbo MD Sep 27, 2018 21:44
[2018-09-28 00:18] VITALS: BP 88/48
[2018-09-28 04:37] VITALS: BP 83/45
--- NOTE | 2018-09-28 07:24 | NUR ---
HAND-OFF: Report given to Theo COSTELLO.
--- NOTE | 2018-09-28 07:40 | NUR ---
NURSE NOTES: Received patient on bed, asleep. Family at bedside. IV site intact and patent. No signs of respiratory distress or pain. Bed in locked position. Room board updated, will continue to monitor.
[2018-09-28 08:00] VITALS: BP 80/43
[2018-09-28] MEDS: Dakin's 0.125% Soln (Quarter Strength) 16oz TOPIC SCH (10:30)
--- NOTE | 2018-09-28 11:26 | NUR ---
ST NOTE: D/C SUMMARY: DISCUSSED WITH RN, LULU RE:PT'S CONDITIONS. PT'S CONDITIONS IS DETERIORATING AND CURRENTLY, PT IS ON END OF LIFE COMFORT CARE. NO SKILLED ST SERVICE IS REQUIRED AT THIS TIME. D/C FROM SKILLED ST SERVICE. D/W THE STAFF.
[2018-09-28 12:00] VITALS: BP 85/48
--- NOTE | 2018-09-28 12:27 | NUR ---
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 97.5 HR 86 RR 16 B/P 88/50 VM 10L O2 SAT @ 94% IS: IVF D5MVI @ 50ML/HR MORPHINE SULFATE IV PRN MED/SURG STATUS
[2018-09-28] MEDS: fentaNYL Destruction MISC SCH (13:15)
[2018-09-28] MEDS ORDERED: MORPHINE S10 MG/5 ML ORAL (14:22)
--- NOTE | 2018-09-28 14:28 | Pulmonology Progress Note ---
Assessment/Plan Problems: (1) End of life care (2) Acute respiratory failure (3) At high risk for aspiration (4) Lung cancer metastatic to brain (5) Gangrene of lower extremity (6) Decubitus ulcer of left hip, stage 4 (7) DNR (do not resuscitate) (8) Severe protein-calorie malnutrition Assessment/Plan moribund more comfortable sleeping comfortably insisting in getting iv fluid prn morphine Subjective Allergies: Coded Allergies: No Known Allergies (Unverified , 08/07/18) Objective Last 24 Hour Vital Signs Date Time Temp Pulse Resp B/P (MAP) Pulse Ox O2 Delivery O2 Flow Rate FiO2 09/28/18 12:00 97.9 99 14 85/48 (60) 98 09/28/18 09:00 Simple Mask 10.0 09/28/18 08:00 98.6 87 14 80/43 (55) 94 09/28/18 04:37 97.6 84 14 83/45 (58) 09/28/18 00:18 97.5 86 16 88/48 (61) 96 09/27/18 23:58 Venturi Mask 12.0 50 09/27/18 23:53 95 Venturi Mask 12.0 50 09/27/18 21:00 Simple Mask 10.0 09/27/18 20:56 97.7 83 17 78/44 (55) 09/27/18 16:00 96.0 90 16 76/53 (61) 90 Intake and Output 09/27/18 09/28/18 19:00 07:00 Intake Total 550 ml 350 ml Output Total 400 ml Balance 150 ml 350 ml Intake IV Total 550 ml 350 ml Output Urine Total 400 ml # Bowel Movements 3 2 Objective agonal breathing Current Medications Medications (Trade) Dose Ordered Sig/Efraín Route PRN Reason Start Time Stop Time Status Last Admin Dose Admin Fentanyl (Duragesic) 1 patch EVERY 72 HOURS TDERMAL 09/25/18 13:00 09/29/18 12:59 09/28/18 13:48 Miscellaneous Medication (fentaNYL Destruction) 1 ea Q72H MISC 09/25/18 13:00 10/22/18 12:59 09/28/18 13:15 Morphine Sulfate (Morphine Sulfate) 4 mg Q4H PRN IVP Severe Pain (Pain Scale 7-10) 1/9/19 20:00 09/29/18 19:59 09/28/18 00:35 Multivitamins 10 ml/Dextrose 1,010 ml @ 50 mls/hr [id number] IV 09/23/18 16:00 10/23/18 15:59 09/27/18 20:59 Sodium Hypochlorite (Dakin's Quarter Strength) 1 applic DAILY TOPIC 09/22/18 13:00 10/22/18 12:59 09/28/18 10:30 Rosa Maria Palumbo MD Sep 28, 2018 14:28
--- NOTE | 2018-09-28 14:32 | NUR ---
*-* DISCHARGE PLANNING PATIENT HAS BEEN REFERRED BACK TO: [facility] P:[phone] F: [phone]
--- NOTE | 2018-09-28 14:36 | General Surgery Progress Note ---
General Surgery-Progress Note Subjective Additional Comments very ill appearing. unresponsive. Objective Last 24 Hour Vital Signs Date Time Temp Pulse Resp B/P (MAP) Pulse Ox O2 Delivery O2 Flow Rate FiO2 09/28/18 12:00 97.9 99 14 85/48 (60) 98 09/28/18 09:00 Simple Mask 10.0 09/28/18 08:00 98.6 87 14 80/43 (55) 94 09/28/18 04:37 97.6 84 14 83/45 (58) 09/28/18 00:18 97.5 86 16 88/48 (61) 96 09/27/18 23:58 Venturi Mask 12.0 50 09/27/18 23:53 95 Venturi Mask 12.0 50 09/27/18 21:00 Simple Mask 10.0 09/27/18 20:56 97.7 83 17 78/44 (55) 09/27/18 16:00 96.0 90 16 76/53 (61) 90 I&O Intake and Output 09/27/18 09/28/18 19:00 07:00 Intake Total 550 ml 350 ml Output Total 400 ml Balance 150 ml 350 ml Intake IV Total 550 ml 350 ml Output Urine Total 400 ml # Bowel Movements 3 2 Dressing: saturated, other Wound: other Drains: other Cardiovascular: RSR Respiratory: decreased breath sounds Abdomen: soft, decreased bowel sounds Extremities: other Plan Problems: (1) Gangrene of lower extremity (2) Decubitus ulcer of left hip, stage 4 (3) Severe protein-calorie malnutrition (4) Sepsis Assessment & Plan: very ill septic left leg gangrene from arterial clot/ischemia groin/inguinal wound respiratory depression inability to tolerate po intake multiple problems which are complex and interrelated. does not want tube feeds or feeing tube does not want to take risk of aspiration with diet only left with keeping him NPO on hospice / end of life comfort care has been on terminal supervisor IV Abx for infection very ill and significantly declined since last visit. he is deteriorating in all aspects -comfort care measures -discussed with . he is declining fast and uncomfortable. discussed morphine gtt. -okay to d/c from surgical standpoint no role for debridement would not tolerate surgery or amputation Alli Parada Sep 28, 2018 14:36
--- NOTE | 2018-09-28 15:53 | NUR ---
*-* DISCHARGE PLANNED PATIENT IS DISCHARGED TO: [facility] ROOM# 15-B SKILLED T: [phone] FOR NURSE TO NURSE REPORT [facility] FOR CAMPAIGN MANAGEMENT SENIOR MANAGER AT [address] [place] [id number] Addendum: 09/28/18 at 1722 by EFRAIN BAEZ [facility] AM[facility]ULANCE UNIT BROKE DOWN RUNNING ABOUT AN HOUR LATE
[2018-09-28 16:00] VITALS: BP 87/49
--- NOTE | 2018-09-28 17:09 | Internal Med Progress Note ---
Subjective Date of Service: Sep 28, 2018 Physician Name Hudson Franco Attending Physician Shabbir Sales MD Current Medications Medications (Trade) Dose Ordered Sig/Efraín Route PRN Reason Start Time Stop Time Status Last Admin Dose Admin Fentanyl (Duragesic) 1 patch EVERY 72 HOURS TDERMAL 09/25/18 13:00 09/29/18 12:59 09/28/18 13:48 Miscellaneous Medication (fentaNYL Destruction) 1 ea Q72H MISC 09/25/18 13:00 10/22/18 12:59 09/28/18 13:15 Morphine Sulfate (Morphine Sulfate) 4 mg Q4H PRN IVP Severe Pain (Pain Scale 7-10) 09/22/18 20:00 09/29/18 19:59 09/28/18 00:35 Multivitamins 10 ml/Dextrose 1,010 ml @ 50 mls/hr [id number] IV 09/23/18 16:00 10/23/18 15:59 09/27/18 20:59 Sodium Hypochlorite (Dakin's Quarter Strength) 1 applic DAILY TOPIC 09/22/18 13:00 10/22/18 12:59 09/28/18 10:30 Allergies: Coded Allergies: No Known Allergies (Unverified , 08/07/18) ROS Limited/Unobtainable: Yes Subjective 68 YO M admitted with stage IV adenocarcinoma of lung and generalized weakness. Cover for Int Med-Dr Sales. Await transfer to Rehab on [facility] Objective Last Vital Signs Date Time Temp Pulse Resp B/P (MAP) Pulse Ox O2 Delivery O2 Flow Rate FiO2 09/28/18 12:00 97.9 99 14 85/48 (60) 98 09/28/18 09:00 Simple Mask 10.0 09/27/18 23:58 50 Intake and Output 09/27/18 09/28/18 19:00 07:00 Intake Total 550 ml 350 ml Output Total 400 ml Balance 150 ml 350 ml Intake IV Total 550 ml 350 ml Output Urine Total 400 ml # Bowel Movements 3 2 Objective PHYSICAL EXAMINATION: GENERALLY: The patient is thin-appearing white male, who is somewhat lethargic. HEENT: Eyes, pupils equal responsive to light and accommodation. Extraocular movements are intact. NECK: Supple. No lymphadenopathy. CHEST: Decreased breath sounds on the left. Otherwise, clear to auscultation without wheezes or rales. CARDIOVASCULAR: Regular rhythm and rate. S1 and S2 normal without murmurs, rubs, or gallops. ABDOMEN: Soft, nontender, nondistended. Positive bowel sounds. No evidence of hepatosplenomegaly. Currently, no rebound or guarding noted. EXTREMITIES: Negative for clubbing, cyanosis, or edema. NEUROLOGIC: Unable to assess. Assessment/Plan Problem List: (1) CAD (coronary artery disease) (2) Diabetes mellitus type II, controlled (3) Hypertension (4) BPH (benign prostatic hyperplasia) (5) Decubitus ulcer, stage IV (6) DNR (do not resuscitate) (7) Lung cancer metastatic to brain (8) Gangrene of lower extremity Assessment & Plan: D/C antibiotics (9) Severe protein-calorie malnutrition Assessment/Plan Transfer to [facility] with hospice eval today End of life care-see pulmonary note. Discussed with at bedside Hudson Franco MD Sep 28, 2018 17:09
[2018-09-28] MEDS: D5W IV SCH (17:12)
[2018-09-28] MEDS: MULTIVITAMIN IV SCH (17:12)
--- NOTE | 2018-09-28 19:32 | NUR ---
NURSE NOTES: Patient was discharged to [facility] rehab. IV removed and site covered. ID bands removed and disposed of. Patient kept comfortable at all times. Patient needs met. Patient had no personal belongings. accompanied patient in ambulance.
--- NOTE | 2018-09-28 21:48 | General Progress Note ---
Assessment/Plan Problem List: (1) Lung cancer metastatic to brain ICD Codes: C34.90 - Malignant neoplasm of unspecified part of unspecified bronchus or lung; C79.31 - Secondary malignant neoplasm of brain SNOMED: 81888714, [id number] (2) encephalopathy due to toxin Status: unchanged Assessment/Plan remeron 15mg qhs the pt lacks capacity and the is the decision maker palliative care Subjective Neurologic/Psychiatric: Reports: anxiety Allergies: Coded Allergies: No Known Allergies (Unverified , 08/07/18) Subjective the pt was lethargic today the was reluctant to dc the pt to rehab Objective Last 24 Hour Vital Signs Date Time Temp Pulse Resp B/P (MAP) Pulse Ox O2 Delivery O2 Flow Rate FiO2 09/28/18 16:00 97.6 101 16 87/49 (62) 97 09/28/18 12:00 97.9 99 14 85/48 (60) 98 09/28/18 09:00 Simple Mask 10.0 09/28/18 08:00 98.6 87 14 80/43 (55) 94 09/28/18 04:37 97.6 84 14 83/45 (58) 09/28/18 00:18 97.5 86 16 88/48 (61) 96 09/27/18 23:58 Venturi Mask 12.0 50 09/27/18 23:53 95 Venturi Mask 12.0 50 Intake and Output 09/27/18 09/28/18 19:00 07:00 Intake Total 550 ml 350 ml Output Total 400 ml Balance 150 ml 350 ml Intake IV Total 550 ml 350 ml Output Urine Total 400 ml # Bowel Movements 3 2 Height (Feet): 5 Height (Inches): 4.00 Weight (Pounds): 105 General Appearance: lethargic, confused, agitated, cachetic Kellie Russell MD Sep 28, 2018 21:48
--- NOTE | 2018-09-29 14:48 | Discharge Summary ---
Discharge Summary Discharge Summary _ DATE OF ADMISSION: 09/21/2018 DATE OF DISCHARGE: 09/28/2018 DISCHARGED BY: Dr. Sales REASON FOR ADMISSION: 68 years old male with history of metastatic lung cancer, dry gangrene left leg, infected, left hip decubitus ulcer stage IV, present on admission, bedbound , half-way resident, DNR/DNI, sent to emergency room for evaluation due to increased respiratory effort and worsening of the wound status. Upon evaluation patient was tachycardic ,tachypneic ,and required 100% nonrebreathing mask to maintain appropriate oxygenation. Laboratory workup revealed leukocytosis WBC 21.3, hemoglobin 7.3 hematocrit 23.5 platelets 480. BUN 22, creatinine 0.8. Stable electrolytes. Lactic acid 3.7. Blood glucose 222. Troponin negative. EKG revealed sinus rhythm, no acute ischemic changes Albumin 1.4 Chest x-ray revealed marked left lung volume loss. Suspect volume loss due to combination of atelectasis and pleural fluid and/or tumor. Compensatory hyperinflation of the right lung. Urinalysis revealed +2 protein ,no evidence of UTI. Patient was admitted for further management. CONSULTANTS: pulmonary Dr. Palumbo sheet metal foreman/oncologist Dr. Conway surgery Dr. Parada psychiatrist [facility] COURSE: Patient admitted. Supplemental oxygen provided to keep pulse oximetry above 92%. Pulmonary toilet provided. Blood culture revealed Klebsiella MDR. Patient started on empiric antibiotics. Surgeon followed for gangrene of lower extremity, infected and left hip stage 4 decubitus ulcer, present on admission. Wound care provided as per surgeon recommendation. Patient was not an appropriate candidate fro amputation given grave medical condition. Pain management was addressed . Patient was made comfortable . Bowel regimen instituted. Electrolytes replaced as needed. Oncologist seen the patient. Per oncologist patient had widely metastatic lung cancer . Prognosis extremely grave at this point since patient did not have any other chemotherapy or oncological option of therapy at this time. Patient overall performance was extremely , and oncologist recommended palliative care Psychiatrist seen and evaluated patient , and started patient on Remeron at nighttime. All consultants recommended palliative care . Goals of care and grave prognosis were discussed with , who agreed to end of life care. Patient subsequently was transferred back to the shelter facility for end of life care and hospice evaluation. FINAL DIAGNOSES: Acute hypoxemic respiratory failure ( probably due to metastatic lung cancer) Sepsis with Klebsiella MDR bacteremia ( likely due to gangrene) Metastatic lung cancer with metastasis to brain Lower extremity gangrene, infected Decubitus ulcer left hip stage IV , present on admission Severe protein calorie malnutrition Anemia End-of-life care DNR./DNI status Diabetes mellitus type 2 Hypertension Coronary artery disease BPH DISCHARGE MEDICATIONS: See Medication Reconciliation list. DISCHARGE INSTRUCTIONS: Patient was discharged to the shelter facility/[facility] for end of life care and hospice evaluation. I have been assigned to dictate discharge summary for this account. I was not involved in the patient's management. Michelle Mari NP Sep 29, 2018 14:48
== END 2018-09-28 19:45 | DRG 871 ==
LOC: EDBD 17:29 → EDBEDREQ 17:36 → EMR 18:43 → EDBEDREQ 20:22 → 2W 20:30 → 4E 09-22 12:14
DX: A41.59 Other Gram-negative sepsis (principal); L89.224 Pressure ulcer of left hip, stage 4; E43 Unspecified severe protein-calorie malnutrition; J96.01 Acute respiratory failure with hypoxia; G92 Toxic encephalopathy; C34.12 Malignant neoplasm of upper lobe, left bronchus or lung; C79.31 Secondary malignant neoplasm of brain; C79.49 Secondary malignant neoplasm of other parts of nervous system; C79.51 Secondary malignant neoplasm of bone; Z68.1 Body mass index [BMI] 19.9 or less, adult; E11.52 Type 2 diabetes mellitus with diabetic peripheral angiopathy with gangrene; I96 Gangrene, not elsewhere classified; I82.402 Acute embolism and thrombosis of unspecified deep veins of left lower extremity; Z51.5 Encounter for palliative care; Z16.24 Resistance to multiple antibiotics; I10 Essential (primary) hypertension; D64.9 Anemia, unspecified; I25.10 Atherosclerotic heart disease of native coronary artery without angina pectoris; N40.0 Benign prostatic hyperplasia without lower urinary tract symptoms; Z92.3 Personal history of irradiation; Z66 Do not resuscitate
CPT/HCPCS: 36415; 71045; 80048; 80053; 80150; 81003; 82550; 83605; 83735; 84100; 84484; 85007; 85025; 85730; 87040; 87081; 87181; 93005; 94664; 94760; 96365; 96375; 99291